=== PATIENT | female | born 1975 | race African-American/Black ===

== ENCOUNTER 2020-02-21 09:07 | Outpatient (REF) | payer OTHER, SELFPAY | END 2020-02-21 09:08 | disposition home or self-care (01) | LOC: HO.LAB 09:07 | PROVIDERS: Visit Provider Internal Medicine | DX: Z20.828 Contact with and (suspected) exposure to other viral communicable diseases (principal) | CPT/HCPCS: 87635 ==

== ENCOUNTER 2020-02-26 09:24 | Outpatient (REF) | payer OTHER, SELFPAY ==
[2020-02-26 11:02] LABS: MANUAL DIFF FLAG NO
[2020-02-26 11:13] LABS: Glucose Urine UA NEG (NEG); Leukocyte Esterase Urine NEG (NEG); Nitrite Urine NEG (NEG); Specific Gravity - Urine 1.025 (1.005-1.025); Urine Blood NEG (NEG); Urine Ketones NEG (NEG); Urine Protein NEG (NEG-TRACE)
[2020-02-26 11:14] LABS: Appearance Urine CLEAR; Color Urine YELLOW
[2020-02-26 11:19] LABS: Basophils Absolute Auto 0.1 X10*3/uL (0.0-0.2); Basophils Percent Auto 0.6 % (0-2); Eosinophils Absolute Auto 0.1 X10*3/uL (0.0-0.4); Eosinophils Percent Auto 1.1 % (0-4); Hemoglobin 10.6 g/dl (12.0-16.0); Imm Gran Abs Auto 0.03 X10*3/uL (0.00-0.03); Imm Gran Pct Auto 0.4 % (0.0-0.4); Lymphocytes Absolute Auto 2.1 X10*3/uL (1.2-4.9); Lymphocytes Percent Auto 26.7 % (20-40); Mean Corpuscular HGB Conc 29.4 g/dl (31.0-35.0); Mean Corpuscular Hemoglobin 20.7 pg (27.0-33.0); Mean Corpuscular Volume 70.2 fL (80-98); Monocytes Absolute Auto 0.6 X10*3/uL (0.1-1.2); Neutrophils Absolute Auto 5.2 X10*3/uL (2.0-8.3); Neutrophils Percent Auto 64.2 % (45-73); Platelet Count 355 X10*3/uL (160-400); Red Blood Count 5.13 X10*6/uL (4.20-5.50); Red Cell Distribution Width 19.8 % (11.0-16.0)
[2020-02-26 11:34] LABS: Mucus Urine 2+ /LPF; RBC Urine 0 /HPF (0); Squamous Epithelial Cell Urine 2+ /LPF; WBC Urine 0 /HPF (0-4)
[2020-02-26 11:54] LABS: Alanine Aminotransferase 10 U/L (0-31); Albumin Level 4.2 g/dL (3.5-5.0); Alkaline Phosphatase 67 U/L (39-117); Anion Gap 13 (12-20); Aspartate Amino Transferase 11 U/L (5-31); Bilirubin Total 0.3 mg/dL (0.0-1.0); Blood Urea Nitrogen 7 mg/dL (9-16); Calcium 8.7 mg/dL (8.4-10.2); Carbon Dioxide 24 mmol/L (22-29); Chloride 108 mmol/L (96-108); Cholesterol 198 mg/dL; Estimated Glomerular Filt Rate > 60; Glucose Fasting 88 mg/dL (60-99); HDL Cholesterol 50 mg/dL; Iron 18 mcg/dL (30-160); LDL Cholesterol Calculated 132 mg/dl; Percent Iron Saturation 4 % (15-50); Potassium 4.1 mmol/l (3.3-5.1); Sodium 141 mmol/L (135-145); Total Iron Binding Capacity 454 mcg/dL (228-428); Total Protein 6.5 g/dL (6.5-8.0); Triglycerides 80 mg/dL; Unsaturated Iron Binding 436 ug/dL
[2020-02-26 11:59] LABS: Thyroid Stimulating Hormone 1.16 mIU/mL (0.32-4.0)
== END 2020-02-26 09:25 | disposition home or self-care (01) ==
LOC: HO.HMGCLDS 09:24
PROVIDERS: PCP Internal Medicine; Visit Provider Internal Medicine
DX: E61.1 Iron deficiency (principal); G89.29 Other chronic pain; R10.9 Unspecified abdominal pain; Z00.00 Encounter for general adult medical examination without abnormal findings
CPT/HCPCS: 36415; 80053; 80061; 81001; 83540; 84443; 85025

== ENCOUNTER 2020-03-11 09:13 | Outpatient (REF) | payer OTHER, SELFPAY ==
--- NOTE | 2020-03-11 09:18 | US_ITS ---
EXAMINATION: US ABDOMEN COMPLETE CLINICAL INFORMATION: Chronic right upper quadrant pain. COMPARISON: None TECHNIQUE: Real-time imaging of the abdominal viscera. FINDINGS: PANCREAS: Normal. ABDOMINAL AORTA: The proximal, mid, and distal segments are normal in caliber. INFERIOR VENA CAVA: Visualized portions are normal. LIVER: Liver echotexture is normal. The liver is normal in size and contour.. No focal hepatic lesion. There is no intrahepatic biliary duct dilatation seen. GALLBLADDER: Normal. The gallbladder is physiologically distended without evidence of stones, sludge, polyps, wall thickening or pericholecystic fluid. COMMON BILE DUCT: Normal in caliber measuring 0.2 cm in diameter. RIGHT KIDNEY: Normal. No hydronephrosis. No renal calculi or focal parenchymal lesions. The kidney measures 13 cm in maximum dimension. LEFT KIDNEY: Normal. No hydronephrosis. No renal calculi or focal parenchymal lesions. The kidney measures 12.5 cm in maximum dimension. SPLEEN: Normal. The spleen measures 12.9 cm in maximum dimension. FREE FLUID: None. US/US abdomen complete IMPRESSION: Unremarkable exam.
== END 2020-03-11 09:14 | disposition home or self-care (01) ==
LOC: HO.HMGCX 09:13
PROVIDERS: PCP Internal Medicine; Visit Provider Internal Medicine
DX: Z00.00 Encounter for general adult medical examination without abnormal findings (principal); R10.9 Unspecified abdominal pain; G89.29 Other chronic pain; A04.8 Other specified bacterial intestinal infections; E61.1 Iron deficiency
CPT/HCPCS: 76700; 87338

== ENCOUNTER → 2020-03-20 09:16 | Outpatient (BNVA) | payer OTHER, SELFPAY | PROVIDERS: PCP Internal Medicine; Referring Provider Internal Medicine; Visit Provider Nurse Practitioner | DX: K21.9 Gastro-esophageal reflux disease without esophagitis (principal); K59.01 Slow transit constipation; R10.9 Unspecified abdominal pain; R14.0 Abdominal distension (gaseous); E66.01 Morbid (severe) obesity due to excess calories | CPT/HCPCS: 99202 ==

== ENCOUNTER 2020-04-03 09:13 | Outpatient (REF) | payer OTHER, SELFPAY | END 2020-04-03 09:14 | disposition home or self-care (01) | LOC: HO.XRAY 09:13 | PROVIDERS: PCP Internal Medicine; Visit Provider Nurse Practitioner | DX: Z13.89 Encounter for screening for other disorder (principal) ==

== ENCOUNTER 2020-04-03 09:49 | Outpatient (REF) | payer OTHER, SELFPAY | END 2020-04-03 09:50 | disposition home or self-care (01) | LOC: HO.LAB 09:49 | PROVIDERS: Visit Provider Internal Medicine | DX: Z20.828 Contact with and (suspected) exposure to other viral communicable diseases (principal) | CPT/HCPCS: C9803; U0003 ==

== ENCOUNTER → 2020-04-08 11:03 | Outpatient (BNVA) | payer OTHER, SELFPAY | PROVIDERS: PCP Internal Medicine; Referring Provider Internal Medicine; Visit Provider Nurse Practitioner | DX: Z76.89 Persons encountering health services in other specified circumstances (principal) ==

== ENCOUNTER 2020-04-15 08:04 | Outpatient (REF) | payer OTHER, SELFPAY ==
--- NOTE | 2020-04-15 | FL_ITS ---
EXAMINATION: XR GI SERIES AND SMALL BOWEL FOLLOW-THROUGH CLINICAL INFORMATION: Abdominal pain COMPARISON: Ultrasound of 03/11/2020 TECHNIQUE: Air contrast upper GI examination with small bowel follow-through. FINDINGS: There is normal elevation of the soft palate while saying candy. There is normal apposition of the vocal cords while saying E. Patient swallowed thin and thick barium without difficulty. No nasopharyngeal reflux or tracheal aspiration identified. There is normal esophageal motility. No hiatal hernia. No gastroesophageal reflux. No esophageal mucosal abnormality. The stomach demonstrates normal distensibility without evidence of ulceration or abnormal mass. There was no delay in gastric emptying. The duodenal bulb and sweep appear unremarkable. Small bowel evaluation demonstrated normal mucosal detail. No tethering identified. The terminal ileum appears unremarkable. The appendix filled and appears unremarkable. FLUOROSCOPY TIME: 1.1 minutes DOSE AREA PRODUCT: 7.201 uGy-m2 (Tan-cm squared) FL/FL small bowel follow through IMPRESSION: Normal upper GI examination and small bowel follow-through.
--- NOTE | 2020-04-15 08:11 | FL_ITS ---
EXAMINATION: XR GI SERIES AND SMALL BOWEL FOLLOW-THROUGH CLINICAL INFORMATION: Abdominal pain COMPARISON: Ultrasound of 03/11/2020 TECHNIQUE: Air contrast upper GI examination with small bowel follow-through. FINDINGS: There is normal elevation of the soft palate while saying candy. There is normal apposition of the vocal cords while saying E. Patient swallowed thin and thick barium without difficulty. No nasopharyngeal reflux or tracheal aspiration identified. There is normal esophageal motility. No hiatal hernia. No gastroesophageal reflux. No esophageal mucosal abnormality. The stomach demonstrates normal distensibility without evidence of ulceration or abnormal mass. There was no delay in gastric emptying. The duodenal bulb and sweep appear unremarkable. Small bowel evaluation demonstrated normal mucosal detail. No tethering identified. The terminal ileum appears unremarkable. The appendix filled and appears unremarkable. FLUOROSCOPY TIME: 1.1 minutes DOSE AREA PRODUCT: 7.201 uGy-m2 (Tan-cm squared) FL/FL upper GI series IMPRESSION: Normal upper GI examination and small bowel follow-through.
== END 2020-04-15 08:05 | disposition home or self-care (01) ==
LOC: HO.XRAY 08:04
PROVIDERS: PCP Internal Medicine; Visit Provider Nurse Practitioner
DX: G89.29 Other chronic pain (principal); R10.9 Unspecified abdominal pain
CPT/HCPCS: 74240; 74250

== ENCOUNTER → 2020-05-21 11:51 | Outpatient (BNVA) | payer OTHER, SELFPAY | PROVIDERS: PCP Internal Medicine; Visit Provider Nurse Practitioner ==

== ENCOUNTER 2020-07-11 09:27 | Outpatient (REF) | payer OTHER, SELFPAY ==
--- NOTE | ~2020-07-11 | CT_ITS ---
EXAMINATION: CT ABDOMEN AND PELVIS WITH CONTRAST CLINICAL INFORMATION: Left lower quadrant pain COMPARISON: Abdominal ultrasound 03/11/2020 TECHNIQUE: Multidetector volumetric images were obtained from the superior aspect of the liver through the pubic symphysis following administration 85 mL of Omnipaque 350 intravenous contrast. Sagittal and coronal reformatted images were obtained on the technologist's workstation. Oral contrast: Yes This CT examination was performed using dose optimization techniques as appropriate, variously including the following: *Automated exposure control *Adjustment of mA and/or kV according to patient size (this includes techniques or standardized protocols for targeted exams where dose is matched to indication/reason for exam; i.e. extremities or head) *Use of iterative reconstruction technique DLP: 714 mGy-cm FINDINGS: LUNG BASES: Minimal bibasilar linear atelectasis. There is an eventration of the right hemidiaphragm. LIVER, GALLBLADDER, AND BILIARY TREE: The liver is mildly enlarged, approximately 21.2 cm in the coronal plane. Parenchymal attenuation is unremarkable. No focal hepatic lesions are identified. There is no intra or extrahepatic duct dilation. There is a small fold at the midportion of the gallbladder which is otherwise unremarkable. PANCREAS: Unremarkable. SPLEEN: Upper limits of normal for size, otherwise unremarkable. ADRENAL GLANDS: Unremarkable. KIDNEYS AND URETERS: The kidneys are normal in size, shape, and attenuation. No hydronephrosis, hydroureter, or calculi seen. No perinephric stranding. BLADDER: Decompressed, overall unremarkable in contour. GASTROINTESTINAL TRACT: The distal esophagus and stomach are unremarkable. The small and large bowel are normal in caliber. The colon, particularly the cecum and ascending colon are quite redundant. There is a normal appendix. There are no bowel wall inflammatory changes. ABDOMINAL WALL: No significant hernia is appreciated. LYMPH NODES: Normal. VASCULAR: Unremarkable. PELVIC VISCERA: The uterus is anteverted and anteflexed. There is a low-attenuation 1 cm structure within the anterior aspect of the fundic myometrium, likely representing a fibroid. There is a 2 x 1.5 cm cm low-attenuation structure in the left adnexa which may represent a dominant follicle or cyst. There is a 1.2 cm low-attenuation structure within the right adnexa as well with a thin rim of enhancement. This could represent a follicle, cyst or corpus luteum. OSSEOUS STRUCTURES: Unremarkable. CT/CT abdomen pelvis w con IMPRESSION: Low attenuation structures within the adnexa bilaterally measuring 2 x 1.5 cm on the left and 1.2 cm on the right. The structure on the right is a thin rim enhancement. This could represent cyst or dominant follicles. On the right, given the thin rim of enhancement, corpus luteum could be a consideration as well. Further evaluation could be obtained with pelvic ultrasound. Mild hepatomegaly.
[2020-07-11] MEDS: Barium Sulfate Oral (Vanilla) 450 ML ORAL.SUSP 900 ML PO (10:51)
== END 2020-07-11 09:28 | disposition home or self-care (01) ==
LOC: HO.CT 09:27
PROVIDERS: Visit Provider Nurse Practitioner
DX: R10.32 Left lower quadrant pain (principal)
CPT/HCPCS: 74177; Q9967

== ENCOUNTER → 2020-07-25 08:44 | Outpatient (BNVA) | payer OTHER, SELFPAY | PROVIDERS: PCP Internal Medicine; Visit Provider Nurse Practitioner | DX: R10.32 Left lower quadrant pain (principal); R10.9 Unspecified abdominal pain; R14.0 Abdominal distension (gaseous); G89.29 Other chronic pain; K59.04 Chronic idiopathic constipation; K21.9 Gastro-esophageal reflux disease without esophagitis | CPT/HCPCS: 99212 ==

== ENCOUNTER 2020-08-29 14:25 | Outpatient (REF) | payer OTHER, SELFPAY ==
[2020-08-29 17:06] LABS: MANUAL DIFF FLAG NO
[2020-08-29 17:08] LABS: Basophils Percent Auto 0.4 % (0-2); Eosinophils Absolute Auto 0.1 X10*3/uL (0.0-0.4); Eosinophils Percent Auto 1.5 % (0-4); Hematocrit 34.5 % (37-47); Hemoglobin 10.4 g/dl (12.0-16.0); Imm Gran Abs Auto 0.06 X10*3/uL (0.00-0.03); Imm Gran Pct Auto 0.9 % (0.0-0.4); Lymphocytes Absolute Auto 1.8 X10*3/uL (1.2-4.9); Lymphocytes Percent Auto 26.2 % (20-40); Mean Corpuscular HGB Conc 30.1 g/dl (31.0-35.0); Mean Corpuscular Hemoglobin 21.1 pg (27.0-33.0); Mean Corpuscular Volume 70.1 fL (80-98); Monocytes Absolute Auto 0.5 X10*3/uL (0.1-1.2); Monocytes Percent Auto 8.1 % (2-11); Neutrophils Absolute Auto 4.2 X10*3/uL (2.0-8.3); Neutrophils Percent Auto 62.9 % (45-73); Platelet Count 498 X10*3/uL (160-400); Red Blood Count 4.92 X10*6/uL (4.20-5.50); Red Cell Distribution Width 16.9 % (11.0-16.0); White Blood Count 6.7 X10*3/uL (4.8-10.8)
[2020-08-29 17:34] LABS: Alanine Aminotransferase 13 U/L (0-31); Alkaline Phosphatase 66 U/L (39-117); Anion Gap 14 (12-20); Aspartate Amino Transferase 16 U/L (5-31); Bilirubin Total 0.8 mg/dL (0.0-1.0); Blood Urea Nitrogen 8 mg/dL (9-16); C Reactive Protein 0.24 mg/dL (< or = 0.50); Calcium 8.7 mg/dL (8.4-10.2); Carbon Dioxide 26 mmol/L (22-29); Chloride 107 mmol/L (96-108); Estimated Glomerular Filt Rate > 60; Glucose Random 77 mg/dL (60-115); Lipase 12 U/L (8-78); Potassium 4.2 mmol/L (3.3-5.1); Sodium 143 mmol/L (135-145); Total Protein 6.5 g/dL (6.5-8.0)
[2020-08-29 17:53] LABS: Erythrocyte Sedimentation Rate 14 MM/HR (0-20)
[2020-08-29 17:55] LABS: Ferritin 13 ng/mL (10-250)
[2020-09-03 16:36] LABS: Gastrin 16 pg/mL (<=100)
== END 2020-08-29 14:26 | disposition home or self-care (01) ==
LOC: HO.LAB 14:25
PROVIDERS: Absent Provider Internal Medicine; PCP Internal Medicine; Visit Provider Internal Medicine Gastroenterology
DX: R10.9 Unspecified abdominal pain (principal); R14.0 Abdominal distension (gaseous); K21.9 Gastro-esophageal reflux disease without esophagitis; K59.04 Chronic idiopathic constipation; D50.9 Iron deficiency anemia, unspecified; G89.29 Other chronic pain; E66.1 Drug-induced obesity
CPT/HCPCS: 36415; 80053; 82728; 82941; 83690; 85025; 85652; 86140; 99212

== ENCOUNTER 2020-09-19 10:39 | Day surgery (SDC) | payer OTHER, SELFPAY ==
--- NOTE | 2020-09-17 13:24 | HO.ANESPROP2 ---
Documented by User: Jenelle Flowers 09/17/20 13:25 HPI - Anesthesia Eval Consult details Narrative: 45yo F for Upper Endoscopy and Colonoscopy PMFSH Active Problems Active Problems: All Active Problems (Updated 08/29/20 @ 18:52 by Bubba Casanova MD) Iron deficiency anemia (Acute) Disc degeneration, lumbar (Acute) LLQ abdominal pain (Acute) Abdominal bloating (Acute) Abdominal cramping (Acute) Chronic idiopathic constipation (Acute) GERD (gastroesophageal reflux disease) (Acute) Morbid obesity (Acute) Iron deficiency (Acute) H. pylori infection (Acute) Chronic abdominal pain (Acute) Annual physical exam (Acute) Normal Pap smear (Acute) Past Medical History Medical History Annual physical exam Chronic abdominal pain Chronic constipation Disc degeneration, lumbar DJD (degenerative joint disease), lumbar H. pylori infection Hemorrhoids Iron deficiency Normal Pap smear Uterine fibroid Family History Family History Father No problems noted. 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 Allergies Allergy/AdvReac Type Severity Reaction Status Date / Time No Known Allergies Allergy Verified 08/29/20 14:29 Home Medications Medication Instructions Recorded Confirmed Last Taken Type ascorbic acid (vitamin C) 500 mg 500 mg PO DAILY 02/26/20 08/29/20 Unknown History capsule,extended release cholecalciferol (vitamin D3) 50 50 mcg PO DAILY 02/26/20 08/29/20 Unknown History mcg (2,000 unit) capsule Exam Exam Date and Time: September 17, 2020 1324 Pertinent Lab Results Pertinent Lab Results: Laboratory Tests 08/29/20 08/29/20 16:05 16:05 WBC 6.7 Hgb 10.4 L Hct 34.5 L Plt Count 498 H D Sodium 143 Potassium 4.2 Chloride 107 Carbon Dioxide 26 BUN 8 L Creatinine 0.70 Assessment and Plan Assessment Anesthesia Assessment: Chart Reviewed Documented by User: Son Chen 09/19/20 10:50 PMFSH Past Medical History Medical History Annual physical exam Chronic abdominal pain Chronic constipation Disc degeneration, lumbar DJD (degenerative joint disease), lumbar H. pylori infection Hemorrhoids Iron deficiency Normal Pap smear Uterine fibroid Family History Family History Father No problems noted. 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
--- NOTE | 2020-09-19 10:41 | P.BOP_ITS ---
Brief Operative Note Date of Service: 09/19/20 Pre-op diagnosis: Intermittent episodes of abdominal pain, iron deficiency anemia Post-op diagnosis: other (Gastritis, diverticulosis, hemorrhoids) Procedure: FLEXIBLE TRANSORAL UPPER GASTROINTESTINAL ENDOSCOPY WITH BIOPSIES AND COLONOSCOPY TILL CECUM WITH BIOPSIES UPPER ENDOSCOPY Consent: Indications for the procedure and potential complications of bleeding, perforation, reaction to medications and missed diagnosis were discussed with the patient and informed consent was obtained. Instrument: Olympus GIF H 190 mid size upper endoscope Monitoring: Vital signs and clinical assessment, continuous EKG monitoring, Pulse oximetry, Carbon Dioxide monitoring and blood pressure monitoring were done throughout the procedure. Procedure: The patient was placed in the left lateral decubitis position and pre-procedure medications were administered and a bite block was placed. The endoscope was inserted into the mouth and advanced under direct vision to the third part of duodenum. A careful inspection was made as the upper endoscope was withdrawn including a retroflexed examination of the proximal stomach; Findings and interventions are described below. Findings: Larynx: Normal Esophagus: GE junction at 36 cms. No esophagitis or Chilel's. Stomach: Mild gastric erythema with a single antral erosion - biopsied. Biopsies were obtained from the antrum and body of the stomach. Grade 2 flap valve on ret roflexed examination of the cardia. Duodenum: Normal bulb and descending duodenum. Biopsies were obtained from 3rd part of the duodenum to check for celiac sprue. Intervention: Biopsies as noted above COLONOSCOPY PROCEDURE NOTE Consent: Indications for the procedure and potential complications of bleeding, perforation, reaction to medications and missed diagnosis were discussed with the patient and informed consent was obtained. Instrument: Olympus PCF H 190 L variable stiffness pediatric colonoscope Monitoring: Vital signs and clinical assessment, intermittent blood pressure monitoring, continuous EKG monitoring, Pulse oximetry and Carbon Dioxide monitoring were done throughout the procedure. Colon withdrawl time was 20 minutes. Procedure: The patient was placed in the left lateral decubitis position and pre-procedure medications were administered. After a digital rectal examination of the ano-rectum, the video colonoscope was inserted into the rectum and advanced through the colon to the cecum. The colonoscope was slowly withdrawn in a retrograde panoramic fashion and the colon mucosa was carefully examined including a retroflexed view of the rectum. Findings and interventions are described below. Procedure Difficulty: : Without difficulty Findings: Terminal Ileum: Multiple attempts to intubate the TI were unsuccessful Cecum: Normal Ascending Colon: Normal Transverse Colon: Normal Descending Colon: Normal Sigmoid Colon: Moderate diverticulosis Rectum: Normal Ano-rectum: Small internal hemorrhoids Colon preparation: Good Impression and Post Procedure Diagnosis: Endoscopy Findings: STOMACH: Mild gastric erythema with a single antral erosion - biopsied. DUODENUM: Colonoscopy Findings: No polyps were detected. Random biopsies obtained from right and colon. Biopsies obtained from the rectum to rule out amyloidosis Moderate diverticulosis seen in the sigmoid colon Small hemorrhoids on retroflexed exam. Plan: Await pathology results Patient has an appointment on 10/31/20 in the GI Clinic with Bubba Casanova M.D.. Repeat Colonoscopy interval based on path results - in 10 years if biopsies are normal. Above findings were reviewed with the patient and diverticulosis handout was given in the discharge area Surgeon: Bubba Casanova MD Anesthesia: MAC (Dr Chen & Carla Bradley CRNA) Was an Captain Waiter/Waitress used for this Procedure?: Yes Captain Waiter/Waitress: Elbert Damico Estimated blood loss (mL): 0 Pathology: other (A- SMALL BOWEL BXS R/O CELIAC B- GASTRIC ANTRUM BXS R/O H.PYLORI C- GASTRIC EROSION BXS D- GASTRIC BODY BXS E- RANDOM BXS RIGHT COLON F- RANDOM BXS LEFT COLON ) Condition: stable Disposition: PACU
--- NOTE | 2020-09-19 10:44 | W.PM.OPN ---
Operative Note Operative Note Date of Service: 09/19/20 Narrative: Pre-op diagnosis: Intermittent episodes of abdominal pain, iron deficiency anemia Post-op diagnosis: other (Gastritis, diverticulosis, hemorrhoids) Procedure: FLEXIBLE TRANSORAL UPPER GASTROINTESTINAL ENDOSCOPY WITH BIOPSIES AND COLONOSCOPY TILL CECUM WITH BIOPSIES UPPER ENDOSCOPY Consent: Indications for the procedure and potential complications of bleeding, perforation, reaction to medications and missed diagnosis were discussed with the patient and informed consent was obtained. Instrument: Olympus GIF H 190 mid size upper endoscope Monitoring: Vital signs and clinical assessment, continuous EKG monitoring, Pulse oximetry, Carbon Dioxide monitoring and blood pressure monitoring were done throughout the procedure. Procedure: The patient was placed in the left lateral decubitis position and pre-procedure medications were administered and a bite block was placed. The endoscope was inserted into the mouth and advanced under direct vision to the third part of duodenum. A careful inspection was made as the upper endoscope was withdrawn including a retroflexed examination of the proximal stomach; Findings and interventions are described below. Findings: Larynx: Normal Esophagus: GE junction at 36 cms. No esophagitis or Chilel's. Stomach: Mild gastric erythema with a single antral erosion - biopsied. Biopsies were obtained from the antrum and body of the stomach. Grade 2 flap valve on retroflexed examination of the cardia. Duodenum: Normal bulb and descending duodenum. Biopsies were obtained from 3rd part of the duodenum to check for celiac sprue. Intervention: Biopsies as noted above COLONOSCOPY PROCEDURE NOTE Consent: Indications for the procedure and potential complications of bleeding, perforation, reaction to medications and missed diagnosis were discussed with the patient and informed consent was obtained. Instrument: Olympus PCF H 190 L variable stiffness pediatric colonoscope Monitoring: Vital signs and clinical assessment, intermittent blood pressure monitoring, continuous EKG monitoring, Pulse oximetry and Carbon Dioxide monitoring were done throughout the procedure. Colon withdrawl time was 20 minutes. Procedure: The patient was placed in the left lateral decubitis position and pre-procedure medications were administered. After a digital rectal examination of the ano-rectum, the video colonoscope was inserted into the rectum and advanced through the colon to the cecum. The colonoscope was slowly withdrawn in a retrograde panoramic fashion and the colon mucosa was carefully examined including a retroflexed view of the rectum. Findings and interventions are described below. Procedure Difficulty: : Without difficulty Findings: Terminal Ileum: Multiple attempts to intubate the TI were unsuccessful Cecum: Normal Ascending Colon: Normal Transverse Colon: Normal Descending Colon: Normal Sigmoid Colon: Moderate diverticulosis Rectum: Normal Ano-rectum: Small internal hemorrhoids Colon preparation: Good Impression and Post Procedure Diagnosis: Endoscopy Findings: STOMACH: Mild gastric erythema with a single antral erosion - biopsied. DUODENUM: Normal - biopsied to check for celiac sprue Colonoscopy Findings: No polyps were detected. Random biopsies obtained from right and colon. Biopsies obtained from the rectum to rule out amyloidosis Moderate diverticulosis seen in the sigmoid colon Small hemorrhoids on retroflexed exam. Plan: Await pathology results Patient has an appointment on 10/31/20 in the GI Clinic with Bubba Casanova M.D.. Repeat Colonoscopy interval based on path results - in 10 years if biopsies are normal. Above findings were reviewed with the patient and diverticulosis handout was given in the discharge area Surgeon: Bubba Casanova MD Anesthesia: MAC (Dr Chen & Carla Bradley CRNA) Was an Corrosion Prevention Metal Sprayer used for this Procedure?: Yes Corrosion Prevention Metal Sprayer: Elbert Damico Estimated blood loss (mL): 0 Pathology: other (A- SMALL BOWEL BXS R/O CELIAC B- GASTRIC ANTRUM BXS R/O H.PYLORI C- GASTRIC EROSION BXS D- GASTRIC BODY BXS E- RANDOM BXS RIGHT COLON F- RANDOM BXS LEFT COLON ) Condition: stable Disposition: PACU
--- NOTE | 2020-09-19 10:44 | MHC.SHP ---
Pre-Procedural Eval Section A The patient is an INPATIENT: No Changes since office visit: Yes Patient answered all questions; No Cold of Flu in the past 2 weeks, No New Medical Problems and No Changes in Medication The History & Physical has been completed within 30 days and I have reviewed it.: Yes Section B Chief Complaint: constipation,abdominal distension Allergies: Allergies Allergy/AdvReac Type Severity Reaction Status Date / Time No Known Allergies Allergy Verified 08/29/20 14:29 Exam Surgical H&P Exam: Normal: HEENT, Normal: Heart, Normal: Lungs, Normal: Extremities and Normal: Abdomen Plan Diagnosis/Plan: Unchanged I have reviewed the history and physical and performed a pertinent physical examination on my patient. No changes have occurred unless specified.
[2020-09-19 10:55] LABS: UPreg QC Valid YES
[2020-09-19 10:57] LABS: Urine Pregnancy NEGATIVE (NEGATIVE)
[2020-09-19 10:58] VITALS: BP 131/86; PULSE 83; RESP 18; TEMP 36.3; O2SAT 97; BMI 39.5
[2020-09-19] MEDS: Lactated Ringers 1,000 ML 100 ML IVCONT (11:19)
[2020-09-19 12:32] VITALS: BP 107/71; PULSE 83; RESP 16; TEMP 36.2; O2SAT 99
[2020-09-19 12:47] VITALS: BP 109/71; PULSE 69; RESP 20; TEMP 36.2; O2SAT 98
== END 2020-09-19 13:20 ==
LOC: HO.SSS 10:40
PROVIDERS: Nurse Practitioner; PCP Internal Medicine; Visit Provider Internal Medicine Gastroenterology
PROC: (CPT 45380; principal; 2020-09-19 11:30)
DX: K59.04 Chronic idiopathic constipation (principal); K63.89 Other specified diseases of intestine; K57.30 Diverticulosis of large intestine without perforation or abscess without bleeding; K64.8 Other hemorrhoids; K25.9 Gastric ulcer, unspecified as acute or chronic, without hemorrhage or perforation; K29.50 Unspecified chronic gastritis without bleeding; G89.29 Other chronic pain; K21.9 Gastro-esophageal reflux disease without esophagitis; D50.9 Iron deficiency anemia, unspecified; Z86.19 Personal history of other infectious and parasitic diseases; Z87.891 Personal history of nicotine dependence; Z79.899 Other long term (current) drug therapy
CPT/HCPCS: 45380; 43239; 81025; 88305; 88312; 88342; J3010

== ENCOUNTER → 2020-10-31 09:12 | Outpatient (BNVA) | payer OTHER, SELFPAY | PROVIDERS: PCP Internal Medicine; Visit Provider Internal Medicine Gastroenterology ==

== ENCOUNTER → 2021-01-30 09:28 | Outpatient (BNVA) | payer OTHER, SELFPAY | PROVIDERS: Visit Provider Internal Medicine Gastroenterology ==

== ENCOUNTER 2021-02-26 10:38 | Outpatient (REF) | payer OTHER, SELFPAY ==
[2021-02-26 12:34] LABS: Hematocrit 37.7 % (37.0-47.0); Hemoglobin 11.5 g/dl (12.0-16.0); Mean Corpuscular HGB Conc 30.5 g/dl (31.0-35.0); Mean Corpuscular Hemoglobin 22.2 pg (27.0-33.0); Mean Corpuscular Volume 72.6 fL (80.0-98.0); Mean Platelet Volume 10.3 fL (9.4-12.3); Platelet Count 402 X10*3/uL (160-400); Red Blood Count 5.19 X10*6/uL (4.20-5.50); Red Cell Distribution Width 19.6 % (11.0-16.0); White Blood Count 7.8 X10*3/uL (4.8-10.8)
[2021-02-26 13:01] LABS: Creatinine Urine 183.74 mg/dL
[2021-02-26 13:02] LABS: Alanine Aminotransferase 14 U/L (0-31); Albumin Level 4.4 g/dL (3.5-5.0); Alkaline Phosphatase 81 U/L (39-117); Anion Gap 11 (12-20); Aspartate Amino Transferase 15 U/L (5-31); Bilirubin Total 0.6 mg/dL (0.0-1.0); Blood Urea Nitrogen 8 mg/dL (9-16); Calcium 9.2 mg/dL (8.4-10.2); Carbon Dioxide 25 mmol/L (22-29); Chloride 107 mmol/L (96-108); Cholesterol 246 mg/dL; Estimated Glomerular Filt Rate > 60; Glucose Fasting 81 mg/dL (60-99); HDL Cholesterol 47 mg/dL; Iron 42 mcg/dL (30-160); LDL Cholesterol Calculated 166 mg/dl; Percent Iron Saturation 8 % (15-50); Potassium 4.4 mmol/L (3.3-5.1); Sodium 139 mmol/L (135-145); Total Iron Binding Capacity 516 mcg/dL (228-428); Triglycerides 168 mg/dL; Unsaturated Iron Binding 474 ug/dL
[2021-02-26 13:13] LABS: Ferritin 11 ng/mL (10-250)
[2021-02-26 13:24] LABS: TSH reflex Free T4 0.62 uIU/mL (0.32-4.0)
[2021-02-27 17:37] LABS: Homocysteine 12.7 umol/L (<10.4)
[2021-03-03 21:32] LABS: Porphobilinogen, Random Urine 0.076 mg/g creat (<0.22)
[2021-03-05 19:16] LABS: C1Q Complement Component 7.9 mg/dL (5.0-8.6)
== END 2021-02-26 10:39 | disposition home or self-care (01) ==
LOC: HO.HMGCLDS 10:38
PROVIDERS: Internal Medicine Gastroenterology; Visit Provider Internal Medicine
DX: Z00.00 Encounter for general adult medical examination without abnormal findings (principal); G89.29 Other chronic pain; R10.9 Unspecified abdominal pain; E61.1 Iron deficiency
CPT/HCPCS: 36415; 80053; 80061; 82728; 83090; 83540; 84106; 84443; 85027; 86160

== ENCOUNTER → 2021-06-12 14:01 | Outpatient (BNVA) | payer OTHER, SELFPAY | PROVIDERS: PCP Internal Medicine; Referring Provider Internal Medicine; Visit Provider Internal Medicine Gastroenterology | DX: K21.9 Gastro-esophageal reflux disease without esophagitis (principal); K59.04 Chronic idiopathic constipation; R10.9 Unspecified abdominal pain; R14.0 Abdominal distension (gaseous); R10.32 Left lower quadrant pain; D50.9 Iron deficiency anemia, unspecified; G89.29 Other chronic pain; A04.8 Other specified bacterial intestinal infections | CPT/HCPCS: 99212 ==

== ENCOUNTER → 2021-07-24 09:37 | Outpatient (BNVA) | payer OTHER, SELFPAY | PROVIDERS: PCP Internal Medicine; Visit Provider Internal Medicine Gastroenterology | DX: K59.04 Chronic idiopathic constipation (principal); K21.9 Gastro-esophageal reflux disease without esophagitis; R14.0 Abdominal distension (gaseous); E66.01 Morbid (severe) obesity due to excess calories; E61.1 Iron deficiency; A04.8 Other specified bacterial intestinal infections; R10.9 Unspecified abdominal pain; G89.29 Other chronic pain; Z68.41 Body mass index [BMI] 40.0-44.9, adult | CPT/HCPCS: 99212 ==

== ENCOUNTER → 2021-08-04 11:24 | Outpatient (BNVA) | payer OTHER, SELFPAY | PROVIDERS: PCP Internal Medicine; Visit Provider Dietitian, Registered | DX: E66.01 Morbid (severe) obesity due to excess calories (principal) | CPT/HCPCS: 97802 ==

== ENCOUNTER 2022-01-02 11:36 | Outpatient (REF) | payer OTHER, SELFPAY ==
[2022-01-02 13:16] LABS: Estimated Average Glucose 105 mg/dL; Hemoglobin A1c % 5.3 %
[2022-01-02 13:21] LABS: TSH reflex Free T4 0.98 uIU/mL (0.32-4.0)
[2022-01-09 14:41] LABS: Transglutaminase Ab IgG <1.0 U/mL; Transglutaminase IgA <1.0 U/mL
== END 2022-01-02 11:37 | disposition home or self-care (01) ==
LOC: HO.LAB 11:36
PROVIDERS: Visit Provider Nurse Practitioner Family
DX: Z12.11 Encounter for screening for malignant neoplasm of colon (principal); R10.9 Unspecified abdominal pain; E11.9 Type 2 diabetes mellitus without complications
CPT/HCPCS: 36415; 83036; 84443; 86364; 99212

== ENCOUNTER → 2022-04-23 10:30 | Outpatient (BNVA) | payer OTHER, SELFPAY | PROVIDERS: PCP Internal Medicine; Referring Provider Internal Medicine; Visit Provider Internal Medicine Gastroenterology | DX: Z13.89 Encounter for screening for other disorder (principal) | CPT/HCPCS: 99212 ==

== ENCOUNTER 2022-04-24 10:46 | Outpatient (REF) | payer OTHER, SELFPAY ==
[2022-04-24 13:45] LABS: MANUAL DIFF FLAG NO
[2022-04-24 13:48] LABS: Basophils Percent Auto 0.4 % (0-2); Eosinophils Absolute Auto 0.2 X10*3/uL (0.0-0.4); Eosinophils Percent Auto 2.7 % (0-4); Hematocrit 34.9 % (37.0-47.0); Hemoglobin 10.6 g/dl (12.0-16.0); Imm Gran Abs Auto 0.03 X10*3/uL (0.00-0.03); Imm Gran Pct Auto 0.4 % (0.0-0.4); Lymphocytes Absolute Auto 1.8 X10*3/uL (1.2-4.9); Lymphocytes Percent Auto 22.2 % (20-40); Mean Corpuscular HGB Conc 30.4 g/dl (31.0-35.0); Mean Corpuscular Hemoglobin 21.5 pg (27.0-33.0); Mean Corpuscular Volume 70.6 fL (80.0-98.0); Mean Platelet Volume 10.3 fL (9.4-12.3); Monocytes Absolute Auto 0.5 X10*3/uL (0.1-1.2); Monocytes Percent Auto 6.6 % (2-11); Neutrophils Absolute Auto 5.3 x10*3/uL (2.0-8.3); Neutrophils Percent Auto 67.7 % (45-73); Platelet Count 360 X10*3/uL (160-400); Red Blood Count 4.94 X10*6/uL (4.20-5.50); Red Cell Distribution Width 17.3 % (11.0-16.0); White Blood Count 7.9 X10*3/uL (4.8-10.8)
[2022-04-24 14:20] LABS: Alanine Aminotransferase 16 U/L (0-31); Albumin Level 3.9 g/dL (3.5-5.0); Alkaline Phosphatase 86 U/L (39-117); Anion Gap 11 (12-20); Aspartate Amino Transferase 12 U/L (5-31); Bilirubin Total 0.3 mg/dL (0.0-1.0); Blood Urea Nitrogen 8 mg/dL (9-16); C Reactive Protein 0.68 mg/dL (< or = 0.50); Calcium 8.7 mg/dL (8.4-10.2); Carbon Dioxide 24 mmol/L (22-29); Chloride 109 mmol/L (96-108); Cholesterol 191 mg/dL; Estimated Glomerular Filt Rate > 60; Glucose Fasting 100 mg/dL (60-99); Glucose Random 100 mg/dL (60-115); HDL Cholesterol 37 mg/dL; Iron 23 mcg/dL (30-160); LDL Cholesterol Calculated 122 mg/dl; Percent Iron Saturation 7 % (15-50); Potassium 4.2 mmol/L (3.3-5.1); Sodium 140 mmol/L (135-145); Total Iron Binding Capacity 346 mcg/dL (228-428); Total Protein 6.3 g/dL (6.5-8.0); Triglycerides 160 mg/dL; Unsaturated Iron Binding 323 ug/dL
[2022-04-24 14:38] LABS: Ferritin 10 ng/mL (10-250)
[2022-04-24 14:40] LABS: TSH reflex Free T4 0.88 uIU/mL (0.32-4.0)
[2022-04-24 14:49] LABS: Folate 4.8 ng/mL (> or = 4.0); Vitamin B12 321 pg/mL (200-900)
[2022-04-29 14:18] LABS: Vitamin B6 <2.0 ng/mL (2.1-21.7)
[2022-05-01 14:14] LABS: Pancreatic Elastase-1 >500 mcg/g
[2022-05-01 21:28] LABS: Calprotectin, Fecal 86 mcg/g
== END 2022-04-24 10:47 | disposition home or self-care (01) ==
LOC: HO.HMGCLDS 10:46
PROVIDERS: Absent Provider Internal Medicine; PCP Internal Medicine; Visit Provider Internal Medicine Gastroenterology
DX: Z00.00 Encounter for general adult medical examination without abnormal findings (principal); K60.2 Anal fissure, unspecified; R10.9 Unspecified abdominal pain; G89.29 Other chronic pain; E66.01 Morbid (severe) obesity due to excess calories; D50.9 Iron deficiency anemia, unspecified
CPT/HCPCS: 36415; 80053; 80061; 82607; 82656; 82728; 82746; 83540; 83993; 84207; 84443; 85025; 86140; 87177; 87209

== ENCOUNTER → 2022-05-20 11:08 | Outpatient (BNVA) | payer OTHER, SELFPAY | PROVIDERS: PCP Internal Medicine; Visit Provider Surgery | DX: L29.0 Pruritus ani (principal) | CPT/HCPCS: 99202 ==

== ENCOUNTER → 2022-06-12 09:02 | Outpatient (BNVA) | payer OTHER, SELFPAY | PROVIDERS: PCP Internal Medicine; Visit Provider Internal Medicine Gastroenterology | DX: K21.9 Gastro-esophageal reflux disease without esophagitis (principal) ==

== ENCOUNTER → 2022-06-22 14:54 | Outpatient (BNVA) | payer OTHER, SELFPAY | PROVIDERS: PCP Internal Medicine; Referring Provider Internal Medicine; Visit Provider Surgery | DX: K60.2 Anal fissure, unspecified (principal); L29.0 Pruritus ani | CPT/HCPCS: 99212 ==

== ENCOUNTER 2022-07-03 11:04 | Outpatient (REF) | payer OTHER, SELFPAY ==
[2022-07-03 14:13] LABS: Hematocrit 32.6 % (37.0-47.0); Hemoglobin 9.8 g/dl (12.0-16.0); Mean Corpuscular HGB Conc 30.1 g/dl (31.0-35.0); Mean Corpuscular Hemoglobin 21.4 pg (27.0-33.0); Mean Corpuscular Volume 71.3 fL (80.0-98.0); Mean Platelet Volume 10.2 fL (9.4-12.3); Platelet Count 375 X10*3/uL (160-400); Red Blood Count 4.57 X10*6/uL (4.20-5.50); Red Cell Distribution Width 18.3 % (11.0-16.0); White Blood Count 7.2 X10*3/uL (4.8-10.8)
[2022-07-03 15:43] LABS: Alanine Aminotransferase 18 U/L (0-31); Albumin Level 3.9 g/dL (3.5-5.0); Alkaline Phosphatase 78 U/L (39-117); Anion Gap 11 (12-20); Aspartate Amino Transferase 15 U/L (5-31); Bilirubin Direct < 0.2 mg/dL (0.0-0.5); Bilirubin Total 0.5 mg/dL (0.0-1.0); Blood Urea Nitrogen 8 mg/dL (9-16); Calcium 8.8 mg/dL (8.4-10.2); Carbon Dioxide 26 mmol/L (22-29); Chloride 108 mmol/L (96-108); Cholesterol 214 mg/dL; Estimated Glomerular Filt Rate > 60; Glucose Random 89 mg/dL (60-115); HDL Cholesterol 37 mg/dL; LDL Cholesterol Calculated 138 mg/dl; Sodium 141 mmol/L (135-145); Triglycerides 197 mg/dL
[2022-07-03 15:46] LABS: Thyroid Stimulating Hormone 0.85 uIU/mL (0.32-4.0); Vitamin B12 395 pg/mL (200-900)
== END 2022-07-03 11:05 | disposition home or self-care (01) ==
LOC: HO.HMGCLDS 11:04
PROVIDERS: Internal Medicine; Internal Medicine Gastroenterology; PCP Internal Medicine; Visit Provider Nurse Practitioner Family
DX: K60.2 Anal fissure, unspecified (principal); K21.9 Gastro-esophageal reflux disease without esophagitis
CPT/HCPCS: 36415; 80048; 80061; 80076; 82607; 82746; 84443; 85027

== ENCOUNTER → 2022-10-12 08:46 | Outpatient (BNVA) | payer OTHER, SELFPAY | PROVIDERS: PCP Internal Medicine; Visit Provider Internal Medicine Gastroenterology ==

== ENCOUNTER 2022-10-22 12:33 | Outpatient (AMB) | payer OTHER, SELFPAY ==
--- NOTE | 2022-10-22 12:34 | A.OFFVIS_ITS ---
Intake Vital Signs 10/22/22 12:36 Height 5 ft 2 in Weight 271 lb 2.697 oz BMI 49.6 BP 131/67 Blood Pressure Location Lt brachial Position Sitting Pulse 61 Intake Visit Reasons: 4 month follow up Intake Note: Adiel presents in the office as a 4 month follow up. CC: She states that she has all the same symptoms. Stomach pains. Codifier Required: No Allergies No Known Allergies Allergy (Verified 01/11/23 14:31) Medication List - Last Reconciled 10/22/22 by Bubba Casanova MD ascorbate calcium (vitamin C) 500 mg PO DAILY clindamycin phosphate 1% topical QAM docusate sodium 100 mg PO BEDTIME ferrous sulfate 325 mg PO DAILY Lactobacillus rhamnosus GG (Culturelle) 1 cap PO DAILY 90 days methylcellulose (laxative) (Citrucel) 500 mg PO DAILY multivitamin with folic acid 400 mcg (Daily-Bisi (with folic acid)) 1 tab PO QAM omeprazole 40 mg PO DAILY 90 days polyethylene glycol 3350 (Miralax) 17 grams PO DAILY 1 day sennosides (Natural Senna Laxative) 17.2 mg (2 x 8.6 mg) PO BEDTIME simethicone (Anti-Gas Ultra Strength) 180 mg PO QID 30 days HPI 4 month follow up HPI Details GI FU visit for this 47-year-old female for FU of chronic abdominal pain and bloating Pt was referred by Silva Daley NP in the past for a 2nd opinion IMAGING STUDIES:? 07/11/[address] SCAN SHOWED: Low attenuation structures within the adnexa bilaterally measuring 2 x 1.5 cm on the left and 1.2 cm on the rig ht. The structure on the right is a thin rim enhancement. This could represent cyst or dominant follicles. On the right, given the thin rim of enhancement, corpus luteum could be a consideration as well. Further evaluation could be obtained with pelvic ultrasound. Mild hepatomegaly. ENDOSCOPIC STUDIES:? 09/2022 CAPSULE ENDOSCOPY SHOWED: Findings: stomach appeared normal. Duodenum entered at 23 mins. Good visualization of small bowel and no masses, ulcers or bleeding points noted. Cecum reached at 3 hr 36 min Conclusion: normal study, no active bleeding seen. 08/2020 EGD? AND COLONOSCOPY SHOWED: Endoscopy Findings: STOMACH: Mild gastric erythema with a single antral erosion - biopsied. Colonoscopy Findings: No polyps were detected. Random biopsies obtained from right and colon.? Biopsies obtained from the rectum to rule out amyloidosis Moderate diverticulosis seen in the sigmoid colon Small hemorrhoids on retroflexed exam. Plan:? Patient has an appointment on 10/31/20 in the GI Clinic with Bubba Casanova M.D.. Repeat Colonoscopy interval based on path results - in 10 years if biopsies are normal. BIOPSIES SHOWED: A.? Small bowel, biopsy:? Duodenal mucosa within normal limits. B.? Stomach, antrum, biopsy:? Antral-type mucosa with moderate chronic inactive inflammation; no Helicobacter organisms seen. C.? Stomach, erosion, biopsy:? Oxyntic mucosa with moderate chronic inactive inflammation and patchy atrophy; no Helicobacter organisms seen. D.? Stomach, body, biopsy:? Oxyntic mucosa with mild chronic inactive inflammation; no atrophy seen; no Helicobacter organisms seen. E.? Colon, random right, biopsy:? Melanosis coli; otherwise colonic mucosa within normal limits. F.? Colon, random left, biopsy:? Colonic mucosa within normal limits. G.? Rectum, biopsy:? Patient cc: abdominal pain/bloating with a lot of gas, GERD with burning sensation. Denies any other GI issues. Feels 50% improvement in heartburn Noted significant improvement in abdominal pain after taking medication to clean out her colon TODAY'S VISIT: Capsule endoscopy results reviewed with the patient Having stomach pain and a lot of gas. Has a BM twice a day - stools can be hard intermittently Anal itching resolved and does not need to use topical cream any more Menstrual bleeding is not too bad at present Everytime I have a BM, my stomach hurts Has intermittent fecal incontinence - twice a week with leakage of loose stools when she passes gas No longer has a fissure any more. Trying to eat less and having less frequent BM. Perianal area is still irritated and not as painful. PAST VISIT: Getting depressed due to GI issues Rectal pain and diagnosed with anal fissure (by Dr Kate at [facility]) and was prescribed topical cream which was compounded (? NTG) - still using it twice daily and fissure has not healed. Notes blood on the tissue when she wipes. Feels she is unable to empty herself completely. Noted diarrhea when she was taking the Linzess and Linzess was stopped by [place]. [place] good when she was taking Linzess - was having several BMs a day. Notes rectal itching when she uses the bathroom - diagnosed with eczema involving the rectum. Noted significant improvement in abdominal pain after taking medication to clean out her colon Pt is accompanied by her little granddaughter, Shirin. Has a lot of acid that comes up. Continues to have upper abdominal pain - every day instead of once a week. Pain is very strong before a BM and feels weak after she has a BM. BMs are normal - 2-3 times a day. Sometimes she feels she is not getting rid of all the stool. felt better after starting Pantoprazole and it appears to have stopped working Allergy testing was negative in the past. Continues to have abdominal pain - not as bad as in the past. Continues to have acid despite taking pantoprazole daily. Feels burning in her chest. Has not had episodes of acid coming out of her nose and mouth recently Pt states I am having heartburn, I would say some constipation. No stomach pains. I have been having a few stomach problems. Woke up with acid coming out of her nose and mouth - 3 episodes over the past 2 months. Denies eating late, had spaghetti the night before. Had dinner at 6 pm and sleeps at 9 pm. Intermittent stabbing upper abdominal pain for the past year. She is frustrated and would like to have this resolved JOSE RAFAEL. Pain radiates laterally to the back and can be upto 10/10 Had terrible pain a few weeks ago after she had steak and she stopped eating steak. Pain can last for 4-5 days.? Still has discomfort and is not as strong. She burps a lot. Intermittent loose stools and constipated twice a month Can have 6 loose to watery BMs when she has diarrhea. No blood and intermittent mucous. Can wake up with no pain and can have pain after she has a BM. Intermittent nausea and vomited a few times a week. No change in appetite or weight. Admits to heartburn and was taking TUMS. Had normal BM once a day prior to onset of symptoms. Has anemia for the past 5 yrs. Had fibroids removed 2 yrs ago which helped with menorrhagia Patient denies major cardiac or pulmonary problems, Pt admits to having sleep apnea and uses a CPAP machine Denies problems with anesthesia in the past. Denies being on chronic anticoagulation. She was using Ibuprofen a lot and advised to stop taking it by her PCP two months ago. Pt denies past hx of PUD, joint pains.? ? rash which resolved Patient denies known family history of colon polyps, colon cancer or other GI malignancies. 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 Had a Colonoscopy in 2017 at [facility] - prep was not good [facility] Medical History Pruritus ani Overweight Grieving Disc degeneration, lumbar H. pylori infection Annual physical exam Normal Pap smear Chronic abdominal pain Chronic constipation DJD (degenerative joint disease), lumbar Uterine fibroid Hemorrhoids Iron deficiency Surgical History Hx of section History of esophagogastroduodenoscopy (EGD) H/O colonoscopy No pertinent past surgical history Family History Father No problems noted. 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 Cognitive needs: No Hearing needs: No Vision needs: Yes Review of Systems Const All systems reviewed & are unremarkable except as noted in HPI and below Physical Exam Vital Signs: Last Vital Signs Pulse 61 10/22/22 12:36 BP 131/67 10/22/22 12:36 BMI result Body Mass Index 49.6 Const General: healthy appearing and no acute distress Nutritional Appearance: malnourished, obese and other Orientation/consciousness: patient oriented x3 Limitations: no limitations HEENT Head: Yes normal to inspection Ears: hearing grossly normal bilaterally Eyes Sclerae: sclerae normal Pupils: Equal, round and reactive pupils present Neck Neck: Yes normal visual inspection Chest Chest palpation & inspection: normal inspection of the chest Resp Effort & Inspection: normal respiratory effort Auscultation: clear to auscultation bilaterally Cardio Palpation: normal PMI Rate: regular rate Rhythm: regular rhythm Heart sounds: S1 normal heart sound present, S2 normal heart sound present and no murmurs GI Palpation (GI): Soft to palpation, nontender and No hepatosplenomegaly present Auscultation: normal bowel sounds Rectal Exam - Female: deferred Skin General skin exam: no rashes or lesions noted Neuro General: patient oriented x3, gait normal and moves all extremities Cranial nerves: Yes Equal, round and reactive pupils present Psych Appearance: grossly normal Mental Status: mental status grossly normal Assessment & Plan Assessment & Plan (1) Iron deficiency: Code(s): E61.1 - Iron deficiency (2) Pruritus ani: Code(s): L29.0 - Pruritus ani (3) Hemorrhoids: Comment: status post surgery by Dr. Diaz 12/2017 Code(s): K64.9 - Unspecified hemorrhoids Qualifiers: Hemorrhoid type: unspecified Qualified Code(s): K64.9 - Unspecified hemorrhoids (4) GERD (gastroesophageal reflux disease): Code(s): K21.9 - Gastro-esophageal reflux disease without esophagitis Qualifiers: Esophagitis presence: esophagitis presence not specified Qualified Code(s): K21.9 - Gastro-esophageal reflux disease without esophagitis (5) Chronic idiopathic constipation: Code(s): K59.04 - Chronic idiopathic constipation (6) Abdominal bloating: Code(s): R14.0 - Abdominal distension (gaseous) (7) LLQ abdominal pain: Code(s): R10.32 - Left lower quadrant pain Plan 47 YF followed in GI for intermittent abdominal pain associated with change in bowel habits with intermittent loose non-bloody diarrhea. She was using Ibuprofen a lot and advised to stop taking it by her PCP a few months ago. She has chronic iron deficiency anemia attributed to menstrual blood loss. Her symptoms can be related to PUD or small bowel ulcers given past NSAID use, IBS with diarrhea, eosinophilic gastroenteritis or FMF, angioedema. Also need to rule out adrenal insufficiency, acute intermittent porphyria - urinary PBG during an episode of abdominal pain Patient denies improvement in symptoms with dicyclomine or a Imipramine. Her symptoms are likely due to IBS as above thacker was negative except for minimally elevated homocysteine levels which can be due to Vitamin B12, B 6 or folate deficiency. She took pantoprazole for 14 days after her visit to [facility] and noted partial improvement in her symptoms. 08/2020 EGD and Colon were performed and findings as noted above She was advised to: 1.? Stop pantoprazole and take Omeprazole 20 mg twice daily. 2.? Start taking a Probitoic and an MVI daily 3.? Go on a liquid diet and take Miralax prep to cleanse her colon to see if her abdominal pain improved 4.? Pt handout on IBS from [facility] was given to the patient Feels 50% improvement in heartburn Noted significant improvement in abdominal pain after taking medication to clean out her colon Stopped Linzess due to diarrhea. Advised to continue topical ointment for Anal Fissure and increase citrucil to twice a day Patient handout on anal fissure (from [facility]) was given to the patient. Referred to surgery for evaluation for lateral sphincterotomy for non-healing anal fissure I will check a fecal calprotectin to rule out Crohn's disease. Referred to [employer] to assist with wt loss for morbid obesity Pt was seen by Dr Gerber: She has severe itching along with recurrent dressing with the area with subsequent perianal skin breakdown.? She does not have an actual fissure in the anal canal.? She does not hypertonicity of the sphincters which is seen with an anal fissure.? Her perianal skin breakdown is likely secondary to her pruritus with frequent scratching.? I am going to prescribe her Calmoseptine for this.? I told her to avoid sugary food and caffeinated products. I will see her again in the office next month.? She may need to have a biopsy of the perianal skin if this does not improved. 09/2022 [facility]asp[facility] Endoscopy (evaluation of abd pain, NATHAN, elevated CRP and borderline fecal calprotectin of 86) was normal FU in 8 weeks Medications: New lubiprostone (Amitiza) 8 mcg PO BID 60 caps 3RF 30 days K59.09 - Other constipation Patient Instructions: Decrease Miralax to every other day instead of Daily Once Lubiprostone (Amitiza) is available - take it once a day at bedtime for a week. If you continue to have constipation then increase it to twice a day Coding Level of Care Code Est Pt Level 4 (76467) Diagnoses Iron deficiency E61.1 Pruritus ani L29.0 Hemorrhoids, unspecified hemorrhoid type K64.9 Hemorrhoid type: unspecified Gastroesophageal reflux disease, unspecified whether esophagitis present K21.9 Esophagitis presence: esophagitis presence not specified Chronic idiopathic constipation K59.04 Abdominal bloating R14.0 LLQ abdominal pain R10.32 Time Spent (min) 22
[2022-10-22 12:36] VITALS: BP 131/67; PULSE 61; BMI 49.6
== END 2022-10-22 14:19 | disposition home or self-care (01) ==
PROVIDERS: PCP Internal Medicine; Visit Provider Internal Medicine Gastroenterology
DX: E61.1 Iron deficiency (principal); L29.0 Pruritus ani; K64.9 Unspecified hemorrhoids; K21.9 Gastro-esophageal reflux disease without esophagitis; K59.04 Chronic idiopathic constipation; R14.0 Abdominal distension (gaseous); R10.32 Left lower quadrant pain
CPT/HCPCS: 99214

== ENCOUNTER → 2022-10-22 12:33 | Outpatient (BNVA) | payer OTHER, SELFPAY | PROVIDERS: PCP Internal Medicine; Visit Provider Internal Medicine Gastroenterology | DX: R10.32 Left lower quadrant pain (principal); R14.0 Abdominal distension (gaseous); K59.04 Chronic idiopathic constipation; E61.1 Iron deficiency; L29.0 Pruritus ani; K64.9 Unspecified hemorrhoids; K21.9 Gastro-esophageal reflux disease without esophagitis | CPT/HCPCS: 99212 ==

== ENCOUNTER 2022-12-24 09:12 | Outpatient (AMB) | payer OTHER, SELFPAY ==
--- NOTE | 2022-12-24 09:13 | MHC.OFFVIS ---
Intake Visit Reasons: abdominal bloating Intake Note: Adiel presents on the phone for a telehealth visit for abdominal bloating PT CC: pt reports having abdominal bloating pt denies any other GI Issues Collection Systems Consultant Required: No Accompanied by: Self / Same As Patient Allergies No Known Allergies Allergy (Verified 02/18/23 11:25) Medication List - Last Reconciled 12/24/22 by Bubba Casanova MD ascorbate calcium (vitamin C) 500 mg PO DAILY clindamycin phosphate 1% topical QAM docusate sodium 100 mg PO BEDTIME ferrous sulfate 325 mg PO DAILY Lactobacillus rhamnosus GG (Culturelle) 1 cap PO DAILY 90 days lubiprostone (Amitiza) 8 mcg PO BID 30 days methylcellulose (laxative) (Citrucel) 500 mg PO DAILY multivitamin with folic acid 400 mcg (Daily-Bisi (with folic acid)) 1 tab PO QAM omeprazole 40 mg PO DAILY 90 days polyethylene glycol 3350 (Miralax) 17 grams PO DAILY 1 day sennosides (Natural Senna Laxative) 17.2 mg (2 x 8.6 mg) PO BEDTIME simethicone (Anti-Gas Ultra Strength) 180 mg PO QID 30 days HPI HPI abdominal bloating: Details: GI FU visit for this 47-year-old female for FU of chronic abdominal pain and bloating Pt was referred by Silva Daley NP in the past for a 2nd opinion IMAGING STUDIES:? 07/11/[address] SCAN SHOWED: Low attenuation structures within the adnexa bilaterally measuring 2 x 1.5 cm on the left and 1.2 cm on the right. The structure on the right is a thin rim enhancement. This could represent cyst or dominant follicles. On the right, given the thin rim of enhancement, corpus luteum could be a consideration as well. Further evaluation could be obtained with pelvic ultrasound. Mild hepatomegaly. ENDOSCOPIC STUDIES:? 09/2022 CAPSULE ENDOSCOPY SHOWED: Findings: stomach appeared normal. Duodenum entered at 23 mins. Good visualization of small bowel and no masses, ulcers or bleeding points noted. Cecum reached at 3 hr 36 min Conclusion: normal study, no active bleeding seen. 08/2020 EGD? AND COLONOSCOPY SHOWED: Endoscopy Findings: STOMACH: Mild gastric erythema with a single antral erosion - biopsied. Colonoscopy Findings: No polyps were detected. Random biopsies obtained from right and colon.? Biopsies obtained from the rectum to rule out amyloidosis Moderate diverticulosis seen in the sigmoid colon Small hemorrhoids on retroflexed exam. Plan:? Patient has an appointment on 10/31/20 in the GI Clinic with Bubba Casanova M.D.. Repeat Colonoscopy interval based on path results - in 10 years if biopsies are normal. BIOPSIES SHOWED: A.? Small bowel, biopsy:? Duodenal mucosa within normal limits. B.? Stomach, antrum, biopsy:? Antral-type mucosa with moderate chronic inactive inflammation; no Helicobacter organisms seen. C.? Stomach, erosion, biopsy:? Oxyntic mucosa with moderate chronic inactive inflammation and patchy atrophy; no Helicobacter organisms seen. D.? Stomach, body, biopsy:? Oxyntic mucosa with mild chronic inactive inflammation; no atrophy seen; no Helicobacter organisms seen. E.? Colon, random right, biopsy:? Melanosis coli; otherwise colonic mucosa within normal limits. F.? Colon, random left, biopsy:? Colonic mucosa within normal limits. G.? Rectum, biopsy:? TODAY'S VISIT: PT CC: pt reports having abdominal bloating pt denies any other GI Issues Continues to have a lot of bloating. Prescription for Amitiza was not approved by the pharmacy - refill sent. Symptoms are worse after she eats cheese, ice cream and yogurt and prescribed Lactaid pills to take with milk products. PAST VISIT: Having stomach pain and a lot of gas. Has a BM twice a day - stools can be hard intermittently Anal itching resolved and does not need to use topical cream any more Menstrual bleeding is not too bad at present Everytime I have a BM, my stomach hurts Has intermittent fecal incontinence - twice a week with leakage of loose stools when she passes gas No longer has a fissure any more. Trying to eat less and having less frequent BM. Perianal area is still irritated and not as painful. Capsule endoscopy results reviewed with the patient Patient cc: abdominal pain/bloating with a lot of gas, GERD with burning sensation. Denies any other GI issues. Feels 50% improvement in heartburn Noted significant improvement in abdominal pain after taking medication to clean out her colon Getting depressed due to GI issues Rectal pain and diagnosed with anal fissure (by Dr Kate at [facility]) and was prescribed topical cream which was compounded (? NTG) - still using it twice daily and fissure has not healed. Notes blood on the tissue when she wipes. Feels she is unable to empty herself completely. Noted diarrhea when she was taking the Linzess and Linzess was stopped by [place]. [place] good when she was taking Linzess - was having several BMs a day. Notes rectal itching when she uses the bathroom - diagnosed with eczema involving the rectum. Noted significant improvement in abdominal pain after taking medication to clean out her colon Pt is accompanied by her little granddaughter, Shirin. Has a lot of acid that comes up. Continues to have upper abdominal pain - every day instead of once a week. Pain is very strong before a BM and feels weak after she has a BM. BMs are normal - 2-3 times a day. Sometimes she feels she is not getting rid of all the stool. felt better after starting Pantoprazole and it appears to have stopped working Allergy testing was negative in the past. Continues to have abdominal pain - not as bad as in the past. Continues to have acid despite taking pantoprazole daily. Feels burning in her chest. Has not had episodes of acid coming out of her nose and mouth recently Pt states I am having heartburn, I would say some constipation. No stomach pains. I have been having a few stomach problems. Woke up with acid coming out of her nose and mouth - 3 episodes over the past 2 months. Denies eating late, had spaghetti the night before. Had dinner at 6 pm and sleeps at 9 pm. Intermittent stabbing upper abdominal pain for the past year. She is frustrated and would like to have this resolved JOSE RAFAEL. Pain radiates laterally to the back and can be upto 10/10 Had terrible pain a few weeks ago after she had steak and she stopped eating steak. Pain can last for 4-5 days.? Still has discomfort and is not as strong. She burps a lot. Intermittent loose stools and constipated twice a month Can have 6 loose to watery BMs when she has diarrhea. No blood and intermittent mucous. Can wake up with no pain and can have pain after she has a BM. Intermittent nausea and vomited a few times a week. No change in appetite or weight. Admits to heartburn and was taking TUMS. Had normal BM once a day prior to onset of symptoms. Has anemia for the past 5 yrs. Had fibroids removed 2 yrs ago which helped with menorrhagia Patient denies major cardiac or pulmonary problems, Pt admits to having sleep apnea and uses a CPAP machine Denies problems with anesthesia in the past. Denies being on chronic anticoagulation. She was using Ibuprofen a lot and advised to stop taking it by her PCP two months ago. Pt denies past hx of PUD, joint pains.? ? rash which resolved Patient denies known family history of colon polyps, colon cancer or other GI malignancies. 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 Had a Colonoscopy in 2017 at [facility] - prep was not good [facility] Medical History Pruritus ani Overweight Grieving Disc degeneration, lumbar H. pylori infection Annual physical exam Normal Pap smear Chronic abdominal pain Chronic constipation DJD (degenerative joint disease), lumbar Uterine fibroid Hemorrhoids Iron deficiency Surgical History Hx of section History of esophagogastroduodenoscopy (EGD) H/O colonoscopy No pertinent past surgical history Family History Father No problems noted. 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 Cognitive needs: No Hearing needs: No Vision needs: Yes Review of Systems Const All systems reviewed & are unremarkable except as noted in HPI and below Telehealth Telehealth Location of provider rendering services: practice address Location of patient: address on file Patient Identification confirmed using: Name, : Yes Telehealth method: voice only Patient verbally consented to treatment: Yes Patient verbally consented to billing insurance company: Yes Patient informed of any privacy concerns related to visit: Yes Minutes spent on Phone/Video with Pt.: 15 Assessment & Plan Assessment & Plan (1) Iron deficiency: Code(s): E61.1 - Iron deficiency Category: Medical (2) Pruritus ani: Code(s): L29.0 - Pruritus ani Category: Medical (3) Hemorrhoids: Comment: status post surgery by Dr. Diaz 12/2017 Code(s): K64.9 - Unspecified hemorrhoids Category: Medical Qualifiers: Hemorrhoid type: unspecified Qualified Code(s): K64.9 - Unspecified hemorrhoids (4) Iron deficiency: Code(s): E61.1 - Iron deficiency Category: Medical (5) Chronic abdominal pain: Code(s): R10.9 - Unspecified abdominal pain; G89.29 - Other chronic pain Category: Medical (6) H. pylori infection: Code(s): A04.8 - Other specified bacterial intestinal infections Category: Medical (7) GERD (gastroesophageal reflux disease): Code(s): K21.9 - Gastro-esophageal reflux disease without esophagitis Category: Medical Qualifiers: Esophagitis presence: esophagitis presence not specified Qualified Code(s): K21.9 - Gastro-esophageal reflux disease without esophagitis (8) Chronic idiopathic constipation: Code(s): K59.04 - Chronic idiopathic constipation Category: Medical (9) Abdominal bloating: Code(s): R14.0 - Abdominal distension (gaseous) Category: Medical (10) Lactose intolerance in adult: Code(s): E73.9 - Lactose intolerance, unspecified Category: Medical Plan 47 YF followed in GI for intermittent abdominal pain associated with change in bowel habits with intermittent loose non-bloody diarrhea. She was using Ibuprofen a lot and advised to stop taking it by her PCP a few months ago. She has chronic iron deficiency anemia attributed to menstrual blood loss. Her symptoms can be related to PUD or small bowel ulcers given past NSAID use, IBS with diarrhea, eosinophilic gastroenteritis or FMF, angioedema. Also need to rule out adrenal insufficiency, acute intermittent porphyria - urinary PBG during an episode of abdominal pain Patient denies improvement in symptoms with dicyclomine or a Imipramine. Her symptoms are likely due to IBS as above thacker was negative except for minimally elevated homocysteine levels which can be due to Vitamin B12, B 6 or folate deficiency. She took pantoprazole for 14 days after her visit to [facility] and noted partial improvement in her symptoms. 08/2020 EGD and Colon were performed and findings as noted above She was advised to: 1.? Stop pantoprazole and take Omeprazole 20 mg twice daily. 2.? Start taking a Probitoic and an MVI daily 3.? Go on a liquid diet and take Miralax prep to cleanse her colon to see if her abdominal pain improved 4.? Pt handout on IBS from [facility] was given to the patient Feels 50% improvement in heartburn Noted significant improvement in abdominal pain after taking medication to clean out her colon Stopped Linzess due to diarrhea. Advised to continue topical ointment for Anal Fissure and increase citrucil to twice a day Patient handout on anal fissure (from [facility]) was given to the patient. Referred to surgery for evaluation for lateral sphincterotomy for non-healing anal fissure I will check a fecal calprotectin to rule out Crohn's disease. Referred to [facility] to assist with wt loss for morbid obesity 12/24/22 Advised to take Lactaid pills with milk products [place] of Amitiza for constipation - not approved by the pharmacy - refill sent. Symptoms are worse after she eats cheese, ice cream and yogurt and prescribed Lactaid pills to take with milk products. Pt was seen by Dr Gerber: She has severe itching along with recurrent dressing with the area with subsequent perianal skin breakdown.? She does not have an actual fissure in the anal canal.? She does not hypertonicity of the sphincters which is seen with an anal fissure.? Her perianal skin breakdown is likely secondary to her pruritus with frequent scratching.? I am going to prescribe her Calmoseptine for this.? I told her to avoid sugary food and caffeinated products. I will see her again in the office next month.? She may need to have a biopsy of the perianal skin if this does not improved. 09/2022 Caspule Endoscopy (evaluation of abd pain, NATHAN, elevated CRP and borderline fecal calprotectin of 86) was normal FU in 2 months Medications: New lactase (Lactaid Fast Act) administer with meals and/or snacks 9,000 units PO QID PRN 30 tabs 1RF lactose intolerance 30 days E73.9 - Lactose intolerance, unspecified Refilled lubiprostone (Amitiza) 8 mcg PO BID 60 caps 3RF 30 days K59.09 - Other constipation Coding Level of Care Code Tele Est Pt Level 3 (41501) Diagnoses Iron deficiency E61.1 Pruritus ani L29.0 Hemorrhoids, unspecified hemorrhoid type K64.9 Hemorrhoid type: unspecified Chronic abdominal pain R10.9; G89.29 H. pylori infection A04.8 Gastroesophageal reflux disease, unspecified whether esophagitis present K21.9 Esophagitis presence: esophagitis presence not specified Chronic idiopathic constipation K59.04 Abdominal bloating R14.0 Lactose intolerance in adult E73.9 Time Spent (min) 15
== END 2022-12-24 15:58 | disposition home or self-care (01) ==
LOC: HO.HGI 09:12
PROVIDERS: PCP Internal Medicine; Visit Provider Internal Medicine Gastroenterology
DX: E61.1 Iron deficiency (principal); L29.0 Pruritus ani; K64.9 Unspecified hemorrhoids; R10.9 Unspecified abdominal pain; G89.29 Other chronic pain; A04.8 Other specified bacterial intestinal infections; K21.9 Gastro-esophageal reflux disease without esophagitis; K59.04 Chronic idiopathic constipation; R14.0 Abdominal distension (gaseous); E73.9 Lactose intolerance, unspecified
CPT/HCPCS: 99499

== ENCOUNTER → 2022-12-24 09:12 | Outpatient (BNVA) | payer OTHER, SELFPAY | PROVIDERS: PCP Internal Medicine; Visit Provider Internal Medicine Gastroenterology ==

== ENCOUNTER 2023-01-11 14:03 | Outpatient (AMB) | payer OTHER, SELFPAY ==
[2023-01-11 14:23] VITALS: BP 112/72; PULSE 64; O2SAT 99; BMI 48.8
--- NOTE | 2023-01-11 14:23 | A.OFFPC_ITS ---
Vital Signs 01/11/23 14:23 Height 5 ft 2 in Weight 267 lb BMI 48.8 BP 112/72 Blood Pressure Location Lt brachial Position Sitting Pulse 64 Pulse Source Pulse Oximeter Pulse Oximetry (%) 99 Oxygen Delivery Method Room Air Intake Visit Reasons: follow up Intake Note: Pt is here today for a follow up visit. Allergies No Known Allergies Allergy (Verified 01/11/23 14:31) Medication List - Last Reconciled 01/11/23 by Daniella Morris MD ascorbate calcium (vitamin C) 500 mg PO DAILY clindamycin phosphate 1% topical QAM docusate sodium 100 mg PO BEDTIME ferrous sulfate 325 mg PO DAILY lactase (Lactaid Fast Act) 9,000 units PO QID PRN 30 days Lactobacillus rhamnosus GG (Culturelle) 1 cap PO DAILY 90 days lubiprostone (Amitiza) 8 mcg PO BID 30 days methylcellulose (laxative) (Citrucel) 500 mg PO DAILY multivitamin with folic acid 400 mcg (Daily-Bisi (with folic acid)) 1 tab PO QAM omeprazole 40 mg PO DAILY 90 days polyethylene glycol 3350 (Miralax) 17 grams PO DAILY 1 day sennosides (Natural Senna Laxative) 17.2 mg (2 x 8.6 mg) PO BEDTIME simethicone (Anti-Gas Ultra Strength) 180 mg PO QID 30 days Tobacco use date assessed: 09/11/22 Dental Screening Dental Screen Date: 01/11/23 Did you have a dental visit in the last 12 months?: Yes Did you have a dental problem in the last 6 months where you did not have access to dental care?: No Was dental information given to patient?: Patient has dentist HPI follow up HPI Details Pt c/o R knee pain worse when sitting and also at night for 2 months. Pt denies any injury, joint swelling but reports morning stiffness when waking up. PFSH Medical History Pruritus ani Overweight Grieving Disc degeneration, lumbar H. pylori infection Annual physical exam Normal Pap smear Chronic abdominal pain Chronic constipation DJD (degenerative joint disease), lumbar Uterine fibroid Hemorrhoids Iron deficiency Surgical History Hx of section History of esophagogastroduodenoscopy (EGD) H/O colonoscopy No pertinent past surgical history Family History Father No problems noted. 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 Endy Rodriguez, Constanza Celeste, Porfirio Esquivel and colleagues, with an educational erwin from [employer]. Review of Systems Const All systems reviewed & are unremarkable except as noted in HPI and below Reports no additional complaints Eyes Reports no additional complaints ENT Reports no additional complaints Card Reports no additional complaints Resp Reports no additional complaints GI Reports no additional complaints Physical exam (Primary Care) Vital Signs: Last Vital Signs Pulse 64 01/11/23 14:23 BP 112/72 01/11/23 14:23 Pulse Ox 99 01/11/23 14:23 Oxygen Delivery Method Room Air 01/11/23 14:23 BMI result Body Mass Index 48.8 Tobacco/Smoking Status: Tobacco use Status Tobacco use date assessed 09/11/22 01/11/23 14:24 Patient Tobacco Use Status Former Tobacco user 01/11/23 14:24 e-Cigarette/Vaping Use Never Used 01/11/23 14:24 Thrive Assessment: Date of Thrive Assessment Date Thrive assessed 09/11/22 01/11/23 14:24 Const General: no acute distress HENMT Head: Yes normal to inspection Neck Neck: Yes supple Resp Effort & Inspection: normal respiratory effort Auscultation: clear to auscultation bilaterally Cardio Rhythm: regular rhythm Heart sounds: S1 normal heart sound present and S2 normal heart sound present GI Inspection: Yes normal to inspection Palpation (GI): Soft to palpation Extrem Other: slightly decreased range of motion right knee medial aspect tenderness, no soft tissue swelling, erythema or warmth Assessment and Plan Assessment & Plan (1) Knee pain, right: Code(s): M25.561 - Pain in right knee Plan: Check knee x-ray and referred for physical therapy meloxicam as prescribed. If the symptoms persist patient will be referred to ortho (2) Hyperglycemia: Code(s): R73.9 - Hyperglycemia, unspecified Plan: Continue ADA diet check A1c (3) Iron deficiency: Code(s): E61.1 - Iron deficiency Plan: Continue iron supplement (4) Annual physical exam: Code(s): Z00.00 - Encounter for general adult medical examination without abnormal findings Plan: Return for physical in January with fasting labs Orders: Orders PT Evaluation and Treatment Today M25.561 - Pain in right knee Comprehensive [place]. Panel Fast 1 Month E61.1 - Iron deficiency, R73.9 - Hyperglycemia, unspecified, Z00.00 - Encounter for general adult medical examination without abnormal findings Complete Blood Count Auto Diff 1 Month E61.1 - Iron deficiency, R73.9 - Hyperglycemia, unspecified, Z00.00 - Encounter for general adult medical examination without abnormal findings Lipid Panel 1 Month E61.1 - Iron deficiency, R73.9 - Hyperglycemia, unspecified, Z00.00 - Encounter for general adult medical examination without abnormal findings Hemoglobin A1c 1 Month E61.1 - Iron deficiency, R73.9 - Hyperglycemia, unspecified, Z00.00 - Encounter for general adult medical examination without abnormal findings IRON PROFILE 1 Month E61.1 - Iron deficiency, R73.9 - Hyperglycemia, unspecified, Z00.00 - Encounter for general adult medical examination without abnormal findings Reticulocyte Count 1 Month E61.1 - Iron deficiency, R73.9 - Hyperglycemia, unspecified, Z00.00 - Encounter for general adult medical examination without abnormal findings Medications: New cholecalciferol (vitamin D3) 50 mcg PO DAILY 90 tabs 1RF meloxicam 15 mg PO DAILY 10 tabs 0RF Coding Level of Care Code Est Pt Level 4 (65386) Diagnoses Knee pain, right M25.561 Hyperglycemia R73.9 Iron deficiency E61.1 Annual physical exam Z00.00
== END 2023-01-11 15:04 | disposition home or self-care (01) ==
PROVIDERS: PCP Internal Medicine; Visit Provider Internal Medicine
DX: M25.561 Pain in right knee (principal); R73.9 Hyperglycemia, unspecified; E61.1 Iron deficiency; Z00.00 Encounter for general adult medical examination without abnormal findings
CPT/HCPCS: 99214

== ENCOUNTER 2023-01-11 14:57 | Outpatient (REF) | payer OTHER, SELFPAY ==
--- NOTE | ~2023-01-11 | XR_ITS ---
EXAMINATION: XR KNEE, RIGHT CLINICAL INFORMATION: Right knee pain COMPARISON: None available. TECHNIQUE: Four views of the right knee. FINDINGS: No fracture or joint effusion. Alignment is anatomic. Joint spaces are maintained. No abnormal soft tissue calcification. XR/XR knee RT 4V IMPRESSION: Unremarkable right knee exam
== END 2023-01-11 14:58 | disposition home or self-care (01) ==
LOC: HO.HMGCX 14:57
PROVIDERS: PCP Internal Medicine; Visit Provider Internal Medicine
DX: M25.561 Pain in right knee (principal)
CPT/HCPCS: 73564

== ENCOUNTER 2023-02-09 07:29 | Outpatient (AMB) | payer OTHER, SELFPAY ==
--- NOTE | 2023-02-09 07:32 | MHC.PC.OV ---
Vital Signs 02/09/23 07:34 Height 5 ft 2 in Weight 265 lb BMI 48.5 BP 118/76 Blood Pressure Location Lt brachial Position Sitting Pulse 74 Pulse Source Pulse Oximeter Pulse Oximetry (%) 98 Oxygen Delivery Method Room Air Intake Visit Reasons: Annual PE Allergies No Known Allergies Allergy (Verified 02/09/23 07:34) Medication List - Last Reconciled 02/09/23 by Daniella Morris MD ascorbate calcium (vitamin C) 500 mg PO DAILY cholecalciferol (vitamin D3) 50 mcg PO DAILY clindamycin phosphate 1% topical QAM docusate sodium 100 mg PO BEDTIME ferrous sulfate 325 mg PO DAILY lactase (Lactaid Fast Act) 9,000 units PO QID PRN 30 days Lactobacillus rhamnosus GG (Culturelle) 1 cap PO DAILY 90 days lubiprostone (Amitiza) 8 mcg PO BID 30 days meloxicam 15 mg PO DAILY methylcellulose (laxative) (Citrucel) 500 mg PO DAILY multivitamin with folic acid 400 mcg (Daily-Bisi (with folic acid)) 1 tab PO QAM omeprazole 40 mg PO DAILY 90 days polyethylene glycol 3350 (Miralax) 17 grams PO DAILY 1 day sennosides (Natural Senna Laxative) 17.2 mg (2 x 8.6 mg) PO BEDTIME simethicone (Anti-Gas Ultra Strength) 180 mg PO QID 30 days Tobacco use date assessed: 09/11/22 Dental Screening Dental Screen Date: 02/09/23 Did you have a dental visit in the last 12 months?: Yes Did you have a dental problem in the last 6 months where you did not have access to dental care?: No Was dental information given to patient?: Patient has dentist HPI Annual PE HPI Details Pt presents for PE. Patient complains of persistent right knee pain worse when walking behind the knee and the right side. Patient denies joint swelling or trauma. Knee x-ray was normal [facility] Medical History Pruritus ani Overweight Grieving Disc degeneration, lumbar H. pylori infection Annual physical exam Normal Pap smear Chronic abdominal pain Chronic constipation DJD (degenerative joint disease), lumbar Uterine fibroid Hemorrhoids Iron deficiency Surgical History Hx of section History of esophagogastroduodenoscopy (EGD) H/O colonoscopy No pertinent past surgical history Family History Father No problems noted. 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 1. Little interest or pleasure in doing things: several days 2. Feeling down, depressed, or hopeless: several days 3. Trouble falling or staying asleep, or sleeping too much: not at all 4. Feeling tired or having little energy: several days 5. Poor appetite or overeating: not at all 6. Feeling bad about yourself - or that you are a failure or have let yourself or your family down: not at all 7. Trouble concentrating on things, such as reading the newspaper or watching television: several days 8. Moving or speaking so slowly that other people could have noticed. Or the opposite - being so fidgety or restless that you have been moving around a lot more than usual: not at all 9. Thoughts that you would be better off or of hurting yourself in some way: not at all Total score: 4 Depression Screening Interpretation: Negative Depression Screening Done: Yes Source: Developed by Drs. Endy Rodriguez, Constanza Celeste, Porfirio Esquivel and colleagues, with an educational erwin from [employer] Thrive Questionnaire Date Thrive assessed: 02/09/23 I am a: Patient What is your living situation today?: I have a steady place to live Within the past 12 months, did the food you bought not last and you didn't have the money to get more?: Never true Within the past 12 months, did you worry whether your food would run out before you got money to buy more?: Never true Do you have trouble paying for medicines?: No Do you have trouble getting transportation to medical appointments?: No Do you have trouble paying your heating and electricity bill?: No Do you have trouble taking care of your child, family member or friend?: No Do you have trouble with day-to-day activities such as bathing, preparing meals, shopping, managing finances, etc.?: No Are you currently unemployed and looking for a job?: No Are you interested in more education?: No Please select the resources that you would like help with: None Currently or been in a relationship where the following occur: no concerns reported AUDIT C Alcohol Use Questionnaire (AUDIT-C) 1. How often do you have a drink containing alcohol?: Monthly or less 2. How many drinks containing alcohol do you have on a typical day when you are drinking?: 1 or 2 3. How often do you have six or more drinks on one occasion?: Never Total Score: 1 FARA-7 AMB Questionnaire FARA-7 Date FARA - 7 assessed: 02/09/23 Feeling nervous, anxious, or on edge: 1 = Several days Not being able to stop or control worryin = Several days Worrying too much about different things: 1 = Several days Trouble relaxin = Several days Being so restless that it is hard to sit still: 0 = Not at all Becoming easily annoyed or irritable: 1 = Several days Feeling afraid as if something awful might happen: 1 = Several days Total FARA-7 score (0-4 normal; 5-9 mild; 10-14 moderate; 15-21 severe): 6 Source: Developed by Drs. Endy Rodriguez, Constanza Celeste, Porfirio Esquivel and colleagues, with an educational erwin from [employer] Review of Systems Const All systems reviewed & are unremarkable except as noted in HPI and below Reports no additional complaints Eyes Reports no additional complaints ENT Reports no additional complaints Card Reports no additional complaints Resp Reports no additional complaints GI Reports no additional complaints Reports no additional complaints Physical exam (Primary Care) Vital Signs: Last Vital Signs Pulse 74 02/09/23 07:34 BP 118/76 02/09/23 07:34 Pulse Ox 98 02/09/23 07:34 Oxygen Delivery Method Room Air 02/09/23 07:34 BMI result Body Mass Index 48.5 Tobacco/Smoking Status: Tobacco use Status Tobacco use date assessed 09/11/22 02/09/23 07:37 Patient Tobacco Use Status Former Tobacco user 02/09/23 07:37 e-Cigarette/Vaping Use Never Used 02/09/23 07:37 PHQ-9: PHQ-9 Score PHQ-9: Total score 4 02/09/23 08:24 Depression Screening Interpretation: Negative Thrive Assessment: Date of Thrive Assessment Date Thrive assessed 02/09/23 02/09/23 08:24 Currently or been in a relationship where the following occur: no concerns reported Const General: no acute distress HENMT Ears: hearing grossly normal bilaterally Mouth: Normal oral and palatal mucosa present Throat: Yes posterior oropharynx normal Eyes General: appearance normal, both eyes and all related structures Neck Neck: Yes no lymphadenopathy Resp Effort & Inspection: normal respiratory effort Auscultation: clear to auscultation bilaterally Cardio Rhythm: regular rhythm Heart sounds: S1 normal heart sound present and S2 normal heart sound present GI Inspection: Yes normal to inspection Palpation (GI): Soft to palpation Percussion: Yes normal to percussion Auscultation: normal bowel sounds Extrem Other: There is a decreased range of motion and lateral aspect tenderness of the right knee no soft tissue swelling erythema or warmth General: Yes no clubbing, cyanosis or edema Assessment and Plan Assessment & Plan (1) Knee pain, right: Code(s): M25.561 - Pain in right knee Plan: Referred to physical therapy, if the pain persists patient requests a referral to [facility] (2) Annual physical exam: Code(s): Z00.00 - Encounter for general adult medical examination without abnormal findings Plan: well balanced diet, regular exercise, weight loss discussed, schedule mammogram (3) Morbid obesity: Code(s): E66.01 - Morbid (severe) obesity due to excess calories Orders: Orders MM screening mammo BI Today Z12.31 - Encounter for screening mammogram for malignant neoplasm of breast Complete Blood Count Auto Diff 365 Days E61.1 - Iron deficiency, E66.01 - Morbid (severe) obesity due to excess calories, R73.9 - Hyperglycemia, unspecified, Z00.00 - Encounter for general adult medical examination without abnormal findings Comprehensive [place]. Panel Fast 365 Days E61.1 - Iron deficiency, E66.01 - Morbid (severe) obesity due to excess calories, R73.9 - Hyperglycemia, unspecified, Z00.00 - Encounter for general adult medical examination without abnormal findings TSH reflex Free T4 365 Days E61.1 - Iron deficiency, E66.01 - Morbid (severe) obesity due to excess calories, R73.9 - Hyperglycemia, unspecified, Z00.00 - Encounter for general adult medical examination without abnormal findings PT Evaluation and Treatment Today M25.561 - Pain in right knee IRON PROFILE 365 Days E61.1 - Iron deficiency, E66.01 - Morbid (severe) obesity due to excess calories, R73.9 - Hyperglycemia, unspecified, Z00.00 - Encounter for general adult medical examination without abnormal findings Lipid Panel 365 Days E61.1 - Iron deficiency, E66.01 - Morbid (severe) obesity due to excess calories, R73.9 - Hyperglycemia, unspecified, Z00.00 - Encounter for general adult medical examination without abnormal findings Hemoglobin A1c 365 Days E61.1 - Iron deficiency, E66.01 - Morbid (severe) obesity due to excess calories, R73.9 - Hyperglycemia, unspecified, Z00.00 - Encounter for general adult medical examination without abnormal findings Referrals Orthopedics Referral M25.561 - Pain in right knee Coding Level of Care Code Est Pt Prev Care 40-64y(95638) Diagnoses Knee pain, right M25.561 Annual physical exam Z00.00 Morbid obesity E66.01
[2023-02-09 07:34] VITALS: BP 118/76; PULSE 74; O2SAT 98; BMI 48.5
== END 2023-02-09 10:18 | disposition home or self-care (01) ==
PROVIDERS: Visit Provider Internal Medicine
DX: Z00.00 Encounter for general adult medical examination without abnormal findings (principal); M25.561 Pain in right knee; E66.01 Morbid (severe) obesity due to excess calories; Z68.42 Body mass index [BMI] 45.0-49.9, adult
CPT/HCPCS: 99396

== ENCOUNTER 2023-02-18 11:01 | Outpatient (AMB) | payer OTHER, SELFPAY ==
[2023-02-18 11:23] VITALS: BP 122/80; PULSE 81; TEMP 36.5; O2SAT 97; BMI 48.9
--- NOTE | 2023-02-18 11:23 | MHC.OFFWIV ---
Intake Vital Signs 02/18/23 11:23 Height 5 ft 2 in Weight 267 lb 2 oz BMI 48.9 BP 122/80 Blood Pressure Location Rt brachial Position Sitting Pulse 81 Pulse Source Pulse Oximeter Temp 97.7 F Temp Source Temporal Artery Scan Pulse Oximetry (%) 97 Oxygen Delivery Method Room Air Intake Visit Reasons: EST/right eye pain(lobby) Intake Note: Pt presents to the office today for c/o right eye pain that started on wednesday. Pt denies any trauma to the area. Pt states when she woke up this morning she had green discharge in it and it was hard to open her eye. Patient Tobacco Use Status: Former Tobacco user Quit Date: quit 1 yr ago Allergies No Known Allergies Allergy (Verified 02/18/23 11:25) HPI HPI Comments History of Present Illness Details The patient presents to urgent care for evaluation of right eyelid swelling. She states that she has had some pain to the right eye since Wednesday. She went to urgent care on Wednesday and was prescribed erythromycin ointment but did not have any significant erythema to the eye. She reports that when she woke today her eyelids were swollen and there was some greenish crusting and drainage in the right eye. She has a mild pain around the eye and slight headache. No visual changes. [facility] Medical History (Reviewed 02/18/23 @ 11: by Malorie Barraza MA) Pruritus ani Overweight Grieving Disc degeneration, lumbar H. pylori infection Annual physical exam Normal Pap smear Chronic abdominal pain Chronic constipation DJD (degenerative joint disease), lumbar Uterine fibroid Hemorrhoids Iron deficiency Surgical History Hx of section History of esophagogastroduodenoscopy (EGD) H/O colonoscopy No pertinent past surgical history Family History (Reviewed 02/18/23 @ 11: by Malorie Barraza MA) Father No problems noted. 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 Cognitive needs: No Hearing needs: No Vision needs: Yes Review of Systems Const Denies headache(s) Eyes Denies change in vision, Denies dry eyes, Denies floaters, Denies irritation, Reports itchy eyes and Denies eye pain ENT Reports no additional complaints and Denies headache(s) Card Reports no additional complaints Musc Denies numbness Skin/Breast Denies skin pain, Denies skin swelling and Denies unusual bruising Neuro Denies headache(s), Denies focal weakness and Denies numbness Aller/Immun Reports itchy eyes Physical Exam Vital Signs: Last Vital Signs Temp 97.7 F 02/18/23 11:23 Pulse 81 02/18/23 11:23 BP 122/80 02/18/23 11:23 Pulse Ox 97 02/18/23 11:23 Oxygen Delivery Method Room Air 02/18/23 11:23 BMI result Body Mass Index 48.9 Const General: healthy appearing and no acute distress Orientation/consciousness: patient oriented x3 Eyes Other: Upper and lower eyelid edema no significant conjunctival injection. No drainage appreciated no foreign body noted Eyelids: Yes eyelids normal Conjunctivae: conjunctival abnormal bilateral conjunctival injection Pupils: Equal, round and reactive pupils present EOM: EOMs intact bilaterally Neuro General: patient oriented x3 Cranial nerves: Yes Equal, round and reactive pupils present Assessment & Plan Assessment & Plan (1) Conjunctivitis: Code(s): H10.9 - Unspecified conjunctivitis Plan Assessment: Conjunctivitis Patient's symptoms are consistent with conjunctivitis. Patient will continue on erythromycin ointment. She was informed that most likely this is viral and that is why it is progressing despite antibiotic ointment. Recommend return if symptoms persist next week. Coding Level of Care Code Est Pt Level 3 (03420) Diagnoses Conjunctivitis H10.9
== END 2023-02-18 11:53 | disposition home or self-care (01) ==
PROVIDERS: PCP Internal Medicine; Visit Provider Emergency Medicine
DX: H10.31 Unspecified acute conjunctivitis, right eye (principal)
CPT/HCPCS: 99213

== ENCOUNTER 2023-02-18 11:56 | Outpatient (AMB) | payer OTHER, SELFPAY ==
--- NOTE | 2023-02-18 11:57 | A.OFFVIS_ITS ---
Intake Intake Visit Reasons: follow up Intake Note: Patient telehealth follow up for abdominal bloating. Patient cc: acid reflex and some constipation on and off. Denies any other GI issues. 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 Allergies No Known Allergies Allergy (Verified 02/18/23 11:25) Medication List - Last Reconciled 02/18/23 by Bubba Casanova MD ascorbate calcium (vitamin C) 500 mg PO DAILY cholecalciferol (vitamin D3) 50 mcg PO DAILY clindamycin phosphate 1% topical QAM docusate sodium 100 mg PO BEDTIME erythromycin ophthalmic (eye) ferrous sulfate 325 mg PO DAILY lactase (Lactaid Fast Act) 9,000 units PO QID PRN 30 days Lactobacillus rhamnosus GG (Culturelle) 1 cap PO DAILY 90 days lubiprostone (Amitiza) 8 mcg PO BID 30 days meloxicam 15 mg PO DAILY methylcellulose (laxative) (Citrucel) 500 mg PO DAILY multivitamin with folic acid 400 mcg (Daily-Bisi (with folic acid)) 1 tab PO QAM omeprazole 40 mg PO DAILY 90 days polyethylene glycol 3350 (Miralax) 17 grams PO DAILY 1 day sennosides (Natural Senna Laxative) 17.2 mg (2 x 8.6 mg) PO BEDTIME simethicone (Anti-Gas Ultra Strength) 180 mg PO QID 30 days HPI follow up HPI Details GI FU visit for this 47-year-old female for FU of chronic abdominal pain and bloating Pt was referred by Silva Daley NP in the past for a 2nd opinion IMAGING STUDIES:? 07/11/[address] SCAN SHOWED: Low attenuation structures within the adnexa bilaterally measuring 2 x 1.5 cm on the left and 1.2 cm on the rig ht. The structure on the right is a thin rim enhancement. This could represent cyst or dominant follicles. On the right, given the thin rim of enhancement, corpus luteum could be a consideration as well. Further evaluation could be obtained with pelvic ultrasound. Mild hepatomegaly. ENDOSCOPIC STUDIES:? 09/2022 CAPSULE ENDOSCOPY SHOWED: Findings: stomach appeared normal. Duodenum entered at 23 mins. Good visualization of small bowel and no masses, ulcers or bleeding points noted. Cecum reached at 3 hr 36 min Conclusion: normal study, no active bleeding seen. 08/2020 EGD? AND COLONOSCOPY SHOWED: Endoscopy Findings: STOMACH: Mild gastric erythema with a single antral erosion - biopsied. Colonoscopy Findings: No polyps were detected. Random biopsies obtained from right and colon.? Biopsies obtained from the rectum to rule out amyloidosis Moderate diverticulosis seen in the sigmoid colon Small hemorrhoids on retroflexed exam. Plan:? Patient has an appointment on 10/31/20 in the GI Clinic with Bubba Casanova M.D.. Repeat Colonoscopy interval based on path results - in 10 years if biopsies are normal. BIOPSIES SHOWED: A.? Small bowel, biopsy:? Duodenal mucosa within normal limits. B.? Stomach, antrum, biopsy:? Antral-type mucosa with moderate chronic inactive inflammation; no Helicobacter organisms seen. C.? Stomach, erosion, biopsy:? Oxyntic mucosa with moderate chronic inactive inflammation and patchy atrophy; no Helicobacter organisms seen. D.? Stomach, body, biopsy:? Oxyntic mucosa with mild chronic inactive inflammation; no atrophy seen; no Helicobacter organisms seen. E.? Colon, random right, biopsy:? Melanosis coli; otherwise colonic mucosa within normal limits. F.? Colon, random left, biopsy:? Colonic mucosa within normal limits. G.? Rectum, biopsy:? TODAY'S VISIT: Patient telehealth follow up for abdominal bloating. Patient cc: acid reflex and some constipation on and off. Denies any other GI issues. Continues to have problems despite using Amtiza for the past 2-3 months Has to use a stool softeners daily in addition. Continues to have a lot of bloating and taking simethicon which helps a little. Taking Omeprazole at bedtime and advised to switch to the morning - 20-30 min before breakfast Has been taking Lactaid products before she takes dairy - helps a little - does not take too much dairy Has been taking probiotics (bought from [employer]) for the past 2 months and is taking at night PAST VISIT: Having stomach pain and a lot of gas. Has a BM twice a day - stools can be hard intermittently Anal itching resolved and does not need to use topical cream any more Menstrual bleeding is not too bad at present Everytime I have a BM, my stomach hurts Has intermittent fecal incontinence - twice a week with leakage of loose stools when she passes gas No longer has a fissure any more. Trying to eat less and having less frequent BM. Perianal area is still irritated and not as painful. Capsule endoscopy results reviewed with the patient Patient cc: abdominal pain/bloating with a lot of gas, GERD with burning sensation. Denies any other GI issues. Feels 50% improvement in heartburn Noted significant improvement in abdominal pain after taking medication to clean out her colon Getting depressed due to GI issues Rectal pain and diagnosed with anal fissure (by Dr Kate at [facility]) and was prescribed topical cream which was compounded (? NTG) - still using it twice daily and fissure has not healed. Notes blood on the tissue when she wipes. Feels she is unable to empty herself completely. Noted diarrhea when she was taking the Linzess and Linzess was stopped by [place]. Mather good when she was taking Linzess - was having several BMs a day. Notes rectal itching when she uses the bathroom - diagnosed with eczema involving the rectum. Noted significant improvement in abdominal pain after taking medication to clean out her colon Pt is accompanied by her little granddaughter, Shirin. Has a lot of acid that comes up. Continues to have upper abdominal pain - every day instead of once a week. Pain is very strong before a BM and feels weak after she has a BM. BMs are normal - 2-3 times a day. Sometimes she feels she is not getting rid of all the stool. felt better after starting Pantoprazole and it appears to have stopped working Allergy testing was negative in the past. Continues to have abdominal pain - not as bad as in the past. Continues to have acid despite taking pantoprazole daily. Feels burning in her chest. Has not had episodes of acid coming out of her nose and mouth recently Pt states I am having heartburn, I would say some constipation. No stomach pains. I have been having a few stomach problems. Woke up with acid coming out of her nose and mouth - 3 episodes over the past 2 months. Denies eating late, had spaghetti the night before. Had dinner at 6 pm and sleeps at 9 pm. Intermittent stabbing upper abdominal pain for the past year. She is frustrated and would like to have this resolved JOSE RAFAEL. Pain radiates laterally to the back and can be upto 10/10 Had terrible pain a few weeks ago after she had steak and she stopped eating steak. Pain can last for 4-5 days.? Still has discomfort and is not as strong. She burps a lot. Intermittent loose stools and constipated twice a month Can have 6 loose to watery BMs when she has diarrhea. No blood and intermittent mucous. Can wake up with no pain and can have pain after she has a BM. Intermittent nausea and vomited a few times a week. No change in appetite or weight. Admits to heartburn and was taking TUMS. Had normal BM once a day prior to onset of symptoms. Has anemia for the past 5 yrs. Had fibroids removed 2 yrs ago which helped with menorrhagia Patient denies major cardiac or pulmonary problems, Pt admits to having sleep apnea and uses a CPAP machine Denies problems with anesthesia in the past. Denies being on chronic anticoagulation. She was using Ibuprofen a lot and advised to stop taking it by her PCP two months ago. Pt denies past hx of PUD, joint pains.? ? rash which resolved Patient denies known family history of colon polyps, colon cancer or other GI malignancies. Works as a [employer] PAST EGD/COLONOSCOPY:? Had a Colonoscopy in 2017 at [facility] - prep was not good [facility] Medical History Pruritus ani Overweight Grieving Disc degeneration, lumbar H. pylori infection Annual physical exam Normal Pap smear Chronic abdominal pain Chronic constipation DJD (degenerative joint disease), lumbar Uterine fibroid Hemorrhoids Iron deficiency Surgical History Hx of section History of esophagogastroduodenoscopy (EGD) H/O colonoscopy No pertinent past surgical history Family History Father No problems noted. 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 Diaz 12/2017 Code(s): K64.9 - Unspecified hemorrhoids Qualifiers: Hemorrhoid type: unspecified Qualified Code(s): K64.9 - Unspecified hemorrhoids (4) Iron deficiency: Code(s): E61.1 - Iron deficiency (5) Chronic abdominal pain: Code(s): R10.9 - Unspecified abdominal pain; G89.29 - Other chronic pain (6) H. pylori infection: Code(s): A04.8 - Other specified bacterial intestinal infections (7) GERD (gastroesophageal reflux disease): Code(s): K21.9 - Gastro-esophageal reflux disease without esophagitis Qualifiers: Esophagitis presence: esophagitis presence not specified Qualified Code(s): K21.9 - Gastro-esophageal reflux disease without esophagitis (8) Chronic idiopathic constipation: Code(s): K59.04 - Chronic idiopathic constipation (9) Iron deficiency anemia: Code(s): D50.9 - Iron deficiency anemia, unspecified Plan 47 YF followed in GI for intermittent abdominal pain associated with change in bowel habits with intermittent loose non-bloody diarrhea. She was using Ibuprofen a lot and advised to stop taking it by her PCP a few months ago. She has chronic iron deficiency anemia attributed to menstrual blood loss. Her symptoms can be related to PUD or small bowel ulcers given past NSAID use, IBS with diarrhea, eosinophilic gastroenteritis or FMF, angioedema. Also need to rule out adrenal insufficiency, acute intermittent porphyria - uri nary PBG during an episode of abdominal pain was normal Patient denies improvement in symptoms with dicyclomine or a Imipramine. Her symptoms are likely due to IBS as above thacker was negative except for minimally elevated homocysteine levels which can be due to Vitamin B12, B 6 or folate deficiency. She took pantoprazole for 14 days after her visit to [facility] and noted partial improvement in her symptoms. 08/2020 EGD and Colon were performed and findings as noted above She was advised to: 1.? Stop pantoprazole and take Omeprazole 20 mg twice daily. 2.? Start taking a Probitoic and an MVI daily 3.? Go on a liquid diet and take Miralax prep to cleanse her colon to see if her abdominal pain improved 4.? Pt handout on IBS from [facility] was given to the patient Feels 50% improvement in heartburn Noted significant improvement in abdominal pain after taking medication to clean out her colon Stopped Linzess due to diarrhea. Advised to continue topical ointment for Anal Fissure and increase citrucil to twice a day Patient handout on anal fissure (from [facility]) was given to the patient. Referred to surgery for evaluation for lateral sphincterotomy for non-healing anal fissure I will check a fecal calprotectin to rule out Crohn's disease. Referred to [facility] to assist with wt loss for morbid obesity 12/24/22 Advised to take Lactaid pills with milk products [place] of Amitiza for constipation 09/2022 Caspule Endoscopy (evaluation of abd pain, NATHAN, elevated CRP and borderline fecal calprotectin of 86) was normal 02/18/23 Pt advised to continue taking Amitiza and follow a FODMAP diet for 6 weeks (Handout mailed to the patient with after visit summary) FU in 3 months Orders: Orders Complete Blood Count no Diff Today D50.9 - Iron deficiency anemia, unspecified C Reactive Protein Today D50.9 - Iron deficiency anemia, unspecified Ferritin Today D50.9 - Iron deficiency anemia, unspecified Telehealth Telehealth Location of provider rendering services: practice address Location of patient: address on file Patient Identification confirmed using: Name, : Yes Telehealth method: voice only Patient verbally consented to treatment: Yes Patient verbally consented to billing insurance company: Yes Patient informed of any privacy concerns related to visit: Yes Minutes spent on Phone/Video with Pt.: 20 Coding Level of Care Code Tele Est Pt Level 4 (93660) Diagnoses Lactose intolerance in adult E73.9 Fissure in ano K60.2 Hemorrhoids, unspecified hemorrhoid type K64.9 Hemorrhoid type: unspecified Iron deficiency E61.1 Chronic abdominal pain R10.9; G89.29 H. pylori infection A04.8 Gastroesophageal reflux disease, unspecified whether esophagitis present K21.9 Esophagitis presence: esophagitis presence not specified Chronic idiopathic constipation K59.04 Iron deficiency anemia D50.9
== END 2023-02-18 14:57 | disposition home or self-care (01) ==
LOC: HO.HGI 11:56
PROVIDERS: PCP Internal Medicine; Visit Provider Internal Medicine Gastroenterology
DX: E73.9 Lactose intolerance, unspecified (principal); K60.2 Anal fissure, unspecified; K64.9 Unspecified hemorrhoids; E61.1 Iron deficiency; R10.9 Unspecified abdominal pain; G89.29 Other chronic pain; A04.8 Other specified bacterial intestinal infections; K21.9 Gastro-esophageal reflux disease without esophagitis; K59.04 Chronic idiopathic constipation; D50.9 Iron deficiency anemia, unspecified
CPT/HCPCS: 99214

== ENCOUNTER → 2023-02-18 11:56 | Outpatient (BNVA) | payer OTHER, SELFPAY | PROVIDERS: PCP Internal Medicine; Visit Provider Internal Medicine Gastroenterology ==

== ENCOUNTER 2024-02-15 07:35 | Outpatient (AMB) | payer OTHER, SELFPAY ==
[2024-02-15 07:42] VITALS: BP 120/64; PULSE 62; O2SAT 99; BMI 46.6
--- NOTE | 2024-02-15 07:42 | A.OFFPC_ITS ---
Vital Signs 02/15/24 07:42 Height 5 ft 2 in Weight 255 lb BMI 46.6 BP 120/64 Blood Pressure Location Lt brachial Position Sitting Pulse 62 Pulse Source Pulse Oximeter Pulse Oximetry (%) 99 Oxygen Delivery Method Room Air Intake Visit Reasons: Annual PE Intake Note: Pt is here today for her PE Allergies No Known Allergies Allergy (Verified 02/15/24 07:43) Medication List - Last Reconciled 02/15/24 by Daniella Morris MD ascorbate calcium (vitamin C) 500 mg PO DAILY cholecalciferol (vitamin D3) 50 mcg PO DAILY docusate sodium 100 mg PO BEDTIME ferrous sulfate 325 mg PO DAILY multivitamin with folic acid 400 mcg (Daily-Bisi (with folic acid)) 1 tab PO QAM omeprazole 40 mg PO DAILY polyethylene glycol 3350 (Miralax) 17 grams PO DAILY 1 day Tobacco use date assessed: 02/15/24 Dental Screening Dental Screen Date: 02/15/24 Did you have a dental visit in the last 12 months?: Yes Did you have a dental problem in the last 6 months where you did not have access to dental care?: No Was dental information given to patient?: Patient has dentist HPI Annual PE HPI Details Pt presents for PE. [facility] Medical History Pruritus ani Overweight Grieving Disc degeneration, lumbar H. pylori infection Annual physical exam Normal Pap smear Chronic abdominal pain Chronic constipation DJD (degenerative joint disease), lumbar Uterine fibroid Hemorrhoids Iron deficiency Surgical History Hx of section History of esophagogastroduodenoscopy (EGD) H/O colonoscopy No pertinent past surgical history Family History Father No problems noted. 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 1. Little interest or pleasure in doing things: not at all 2. Feeling down, depressed, or hopeless: not at all 3. Trouble falling or staying asleep, or sleeping too much: not at all 4. Feeling tired or having little energy: not at all 5. Poor appetite or overeating: not at all 6. Feeling bad about yourself - or that you are a failure or have let yourself or your family down: not at all 7. Trouble concentrating on things, such as reading the newspaper or watching television: several days 8. Moving or speaking so slowly that other people could have noticed. Or the opposite - being so fidgety or restless that you have been moving around a lot more than usual: not at all 9. Thoughts that you would be better off or of hurting yourself in some way: not at all Total score: 1 Depression Screening Interpretation: Negative Depression Screening Done: Yes 12577 - PHQ-9 Billing: Yes Source: Developed by Drs. Endy Rodriguez, Constanza Celeste, Porfirio Esquivel and colleagues, with an educational erwin from [employer]. Thrive Questionnaire Date Thrive assessed: 02/15/24 I am a: Patient What is your living situation today?: I have a steady place to live Within the past 12 months, did the food you bought not last and you didn't have the money to get more?: Never true Within the past 12 months, did you worry whether your food would run out before you got money to buy more?: Never true Do you have trouble paying for medicines?: No Do you have trouble getting transportation to medical appointments?: No Do you have trouble paying your heating and electricity bill?: No Do you have trouble taking care of your child, family member or friend?: No Do you have trouble with day-to-day activities such as bathing, preparing meals, shopping, managing finances, etc.?: No Are you currently unemployed and looking for a job?: No Are you interested in more education?: No Please select the resources that you would like help with: None Currently or been in a relationship where the following occur: No concerns reported THRIVE Score: 0 AUDIT C Alcohol Use Questionnaire (AUDIT-C) 1. How often do you have a drink containing alcohol?: 2-4 times a month 2. How many drinks containing alcohol do you have on a typical day when you are drinking?: 3 or 4 3. How often do you have six or more drinks on one occasion?: Less than monthly Total Score: 4 FARA-7 AMB Questionnaire FARA-7 Date FARA - 7 assessed: 02/15/24 Feeling nervous, anxious, or on edge: 0 = Not at all Not being able to stop or control worryin = Not at all Worrying too much about different things: 0 = Not at all Trouble relaxin = Not at all Being so restless that it is hard to sit still: 0 = Not at all Becoming easily annoyed or irritable: 0 = Not at all Feeling afraid as if something awful might happen: 0 = Not at all Total FARA-7 score (0-4 normal; 5-9 mild; 10-14 moderate; 15-21 severe): 0 Source: Developed by Drs. Endy Rodriguez, Constanza Celeste, Porfirio Esquivel and colleagues, with an educational erwin from [employer]. Review of Systems Const All systems reviewed & are unremarkable except as noted in HPI and below Eyes Reports no additional complaints ENT Reports no additional complaints Card Reports no additional complaints Resp Reports no additional complaints GI Reports no additional complaints Reports no additional complaints Physical exam (Primary Care) Vital Signs: Last Vital Signs Pulse 62 02/15/24 07:42 BP 120/64 02/15/24 07:42 Pulse Ox 99 02/15/24 07:42 Oxygen Delivery Method Room Air 02/15/24 07:42 BMI result Body Mass Index 46.6 Tobacco/Smoking Status: Tobacco use Status Tobacco use date assessed 02/15/24 02/15/24 07:49 Patient Tobacco Use Status Former Tobacco user 02/15/24 07:49 e-Cigarette/Vaping Use Never Used 02/15/24 07:49 PHQ-9: PHQ-9 Score PHQ-9: Total score 1 02/15/24 07:49 Depression Screening Interpretation: Negative Thrive Assessment: Date of Thrive Assessment Date Thrive assessed 02/15/24 02/15/24 07:49 Currently or been in a relationship where the following occur: No concerns reported Const General: no acute distress HENMT Head: Yes normal to inspection Ears: hearing grossly normal bilaterally General nose exam: Normal external nose present Face and sinus: Yes normal facial exam Mouth: Normal oral and palatal mucosa present Throat: Yes posterior oropharynx normal Eyes General: appearance normal, both eyes and all related structures Neck Neck: Yes no lymphadenopathy and Yes supple Resp Effort & Inspection: normal respiratory effort Auscultation: clear to auscultation bilaterally Cardio Rhythm: regular rhythm Heart sounds: S1 normal heart sound present and S2 normal heart sound present GI Inspection: Yes normal to inspection Palpation (GI): Soft to palpation Percussion: Yes normal to percussion Auscultation: normal bowel sounds Coding Level of Care Code Est Pt Prev Care 40-64y(22339) Diagnoses Iron deficiency E61.1 Annual physical exam Z00.00 Morbid obesity E66.01 Assessment & Plan Assessment & Plan (1) Iron deficiency: Comment: Due to menorrhagia Code(s): E61.1 - Iron deficiency Category: Medical Plan: Check CBC and iron, continue iron supplement (2) Annual physical exam: Code(s): Z00.00 - Encounter for general adult medical examination without abnormal f indings Category: Medical Plan: Well-balanced diet regular physical activity discussed with the patient she is up-to-date with pelvic exam colonoscopy. Mammogram will be scheduled (3) Morbid obesity: Comment: Patient has been decreasing caloric intake and exercising daily for 6 months Code(s): E66.01 - Morbid (severe) obesity due to excess calories Category: Medical Plan: To facilitate weight lost Wegovy 0.25 mg weekly for the 1st month then increase the dose as tolerates we will be started. Orders: Orders Comprehensive [place]. Panel Fast Today E61.1 - Iron deficiency, E66.01 - Morbid (severe) obesity due to excess calories, Z00.00 - Encounter for general adult medical examination without abnormal findings Complete Blood Count Auto Diff Today E61.1 - Iron deficiency, E66.01 - Morbid (severe) obesity due to excess calories, Z00.00 - Encounter for general adult medical examination without abnormal findings Lipid Panel Today E61.1 - Iron deficiency, E66.01 - Morbid (severe) obesity due to excess calories, Z00.00 - Encounter for general adult medical examination without abnormal findings IRON PROFILE Today E61.1 - Iron deficiency, E66.01 - Morbid (severe) obesity due to excess calories, Z00.00 - Encounter for general adult medical examination without abnormal findings UA w Microscopic Today E61.1 - Iron deficiency, E66.01 - Morbid (severe) obesity due to excess calories, Z00.00 - Encounter for general adult medical examination without abnormal findings MM screening mammo BI Today Z12.31 - Encounter for screening mammogram for malignant neoplasm of breast TSH reflex Free T4 Today E61.1 - Iron deficiency, E66.01 - Morbid (severe) obesity due to excess calories, Z00.00 - Encounter for general adult medical examination without abnormal findings Medications: New gentamicin 0.3% to left eye 1 drp ophthalmic (eye) Q8H 5 mL 0RF Wegovy (semaglutide (weight loss)) administer weeks 1 through 4 of therapy 0.25 mg (0.5 mL) subcut QWEEK 2 mL 0RF NS
== END 2024-02-15 08:32 | disposition home or self-care (01) ==
PROVIDERS: PCP Internal Medicine; Visit Provider Internal Medicine
DX: Z00.00 Encounter for general adult medical examination without abnormal findings (principal); E61.1 Iron deficiency; E66.01 Morbid (severe) obesity due to excess calories; Z68.42 Body mass index [BMI] 45.0-49.9, adult

== ENCOUNTER → 2024-02-15 07:35 | Outpatient (BNVA) | payer OTHER, SELFPAY | PROVIDERS: PCP Internal Medicine; Visit Provider Internal Medicine | DX: Z00.00 Encounter for general adult medical examination without abnormal findings (principal); E61.1 Iron deficiency; E66.01 Morbid (severe) obesity due to excess calories; Z68.42 Body mass index [BMI] 45.0-49.9, adult | CPT/HCPCS: 96127; 99396 ==

== ENCOUNTER 2024-02-15 08:33 | Outpatient (REF) | payer OTHER, SELFPAY ==
[2024-02-15 10:04] LABS: Appearance Urine Turbid; Color Urine Yellow; Glucose Urine UA Negative (Negative); Leukocyte Esterase Urine Negative (Negative); Nitrite Urine Negative (Negative); PH 6.5 (5.0-9.0); Specific Gravity - Urine >= 1.030 (1.005-1.025); Urine Blood Negative (Negative); Urine Ketones Negative (Negative); Urine Protein Negative (Neg-Trace)
[2024-02-15 10:07] LABS: MANUAL DIFF FLAG NO
[2024-02-15 10:19] LABS: Basophils Percent Auto 0.6 % (0-2); Eosinophils Absolute Auto 0.1 X10*3/uL (0.0-0.4); Hematocrit 32.9 % (37.0-47.0); Hemoglobin 9.6 g/dl (12.0-16.0); Imm Gran Abs Auto 0.04 X10*3/uL (0.00-0.03); Imm Gran Pct Auto 0.6 % (0.0-0.4); Lymphocytes Absolute Auto 1.7 X10*3/uL (1.2-4.9); Lymphocytes Percent Auto 25.9 % (20-40); Mean Corpuscular HGB Conc 29.2 g/dl (31.0-35.0); Mean Corpuscular Hemoglobin 19.8 pg (27.0-33.0); Mean Platelet Volume 10.4 fL (9.4-12.3); Monocytes Absolute Auto 0.5 X10*3/uL (0.1-1.2); Monocytes Percent Auto 7.8 % (2-11); Neutrophils Absolute Auto 4.2 x10*3/uL (2.0-8.3); Neutrophils Percent Auto 63.1 % (45-73); Platelet Count 430 X10*3/uL (160-400); Red Blood Count 4.84 X10*6/uL (4.20-5.50); White Blood Count 6.6 X10*3/uL (4.8-10.8)
[2024-02-15 10:21] LABS: Bacteria Urine None Seen (None Seen); Hyaline Casts Urine 0-2 /LPF (0-2); RBC Urine 0-2 /HPF (0-2); WBC Urine 0-5 /HPF (0-5)
[2024-02-15 10:59] LABS: Alanine Aminotransferase 13 U/L (0-31); Alkaline Phosphatase 78 U/L (39-117); Anion Gap 12 (12-20); Aspartate Amino Transferase 18 U/L (5-31); Bilirubin Total 0.3 mg/dL (0.0-1.0); Blood Urea Nitrogen 10 mg/dL (9-16); Calcium 8.7 mg/dL (8.4-10.2); Carbon Dioxide 23 mmol/L (22-29); Chloride 112 mmol/L (96-108); Cholesterol 206 mg/dL (<200); Estimated Glomerular Filt Rate > 60; Glucose Fasting 98 mg/dL (60-99); HDL Cholesterol 41 mg/dL (>40); Iron 17 mcg/dL (30-160); LDL Cholesterol Calculated 138 mg/dL (<100); Percent Iron Saturation 4 % (15-50); Potassium 3.8 mmol/L (3.3-5.1); Sodium 143 mmol/L (135-145); Total Iron Binding Capacity 386 mcg/dL (228-428); Total Protein 6.5 g/dL (6.5-8.0); Triglycerides 139 mg/dL (<150); Unsaturated Iron Binding 369 ug/dL
[2024-02-15 11:04] LABS: Estimated Average Glucose 108 mg/dL; Hemoglobin A1C 107.2896 umol/L; Hemoglobin A1c % 5.4 % (<6.0); Total Hemoglobin (HGBA1C) 3048.0383 umol/L
== END 2024-02-15 08:34 | disposition home or self-care (01) ==
LOC: HO.HMGCLDS 08:33
PROVIDERS: PCP Internal Medicine; Visit Provider Internal Medicine
DX: Z00.00 Encounter for general adult medical examination without abnormal findings (principal); R73.9 Hyperglycemia, unspecified; E61.1 Iron deficiency; E66.01 Morbid (severe) obesity due to excess calories
CPT/HCPCS: 36415; 80053; 80061; 81001; 83036; 83540; 84443; 85025

== ENCOUNTER 2024-03-18 08:59 | Outpatient (REF) | payer OTHER, SELFPAY ==
--- NOTE | ~2024-03-18 | MM_ITS ---
EXAMINATION: MM SCREENING DIGITAL BREAST TOMOSYNTHESIS, BILATERAL CLINICAL INFORMATION: Screening. Asymptomatic. COMPARISON: Mammography: Baseline. TECHNIQUE: Digital breast mammography with tomosynthesis is performed in both the craniocaudal and mediolateral oblique views along with computer-aided detection (CAD). FINDINGS: There are scattered areas of fibroglandular density (ACR BI-RADS breast composition Category b). There are no significant masses, abnormal calcifications, or other abnormalities. MM/MM tomosynthesis screening BI IMPRESSION: No mammographic evidence of malignancy. ASSESSMENT: BI-RADS BI-RADS 1 - Negative RECOMMENDATION: Routine annual mammography screening. 1 year F/U This examination should not preclude the clinical evaluation of a suspicious palpable abnormality. This patient's information was entered into a reminder system with a target due date for their next mammogram. Electronically signed by: Wilma Noyola DO 03/29/2024 10:39 AM [facility]
== END 2024-03-18 09:00 | disposition home or self-care (01) ==
LOC: HO.MAMMO 08:59
PROVIDERS: PCP Internal Medicine; Visit Provider Internal Medicine
DX: Z12.31 Encounter for screening mammogram for malignant neoplasm of breast (principal)
CPT/HCPCS: 77063; 77067

== ENCOUNTER → 2024-03-18 09:00 | Outpatient (BNV) | payer OTHER, SELFPAY | PROVIDERS: PCP Internal Medicine; Visit Provider Internal Medicine | DX: Z12.31 Encounter for screening mammogram for malignant neoplasm of breast (principal) | CPT/HCPCS: 77063; 77067 ==

== ENCOUNTER 2024-05-18 11:06 | Outpatient (AMB) | payer OTHER, SELFPAY ==
[2024-05-18 11:28] VITALS: BP 108/68; PULSE 70; O2SAT 96; BMI 48.1
--- NOTE | 2024-05-18 11:28 | A.OFFPC_ITS ---
Vital Signs 05/18/24 11:28 Height 5 ft 2 in Weight 263 lb BMI 48.1 BP 108/68 Blood Pressure Location Rt brachial Position Sitting Pulse 70 Pulse Source Pulse Oximeter Pulse Oximetry (%) 96 Oxygen Delivery Method Room Air Intake Visit Reasons: 3 months f/up - see comments Intake Note: Pt is here today for 3 months follow up visit. Allergies No Known Allergies Allergy (Verified 05/18/24 11:29) Medication List - Last Reconciled 05/18/24 by Daniella Morris MD ascorbate calcium (vitamin C) 500 mg PO DAILY cholecalciferol (vitamin D3) 50 mcg PO DAILY docusate sodium 100 mg PO BEDTIME ferrous sulfate 325 mg PO DAILY gentamicin 0.3% 1 drp ophthalmic (eye) Q8H multivitamin with folic acid 400 mcg (Daily-Bisi (with folic acid)) 1 tab PO QAM omeprazole 40 mg PO DAILY polyethylene glycol 3350 (Miralax) 17 grams PO DAILY 1 day Zepbound (tirzepatide (weight loss)) 2.5 mg (0.5 mL) subcut QWEEK NS Tobacco use date assessed: 05/18/24 Dental Screening Dental Screen Date: 05/18/24 Did you have a dental visit in the last 12 months?: Yes Did you have a dental problem in the last 6 months where you did not have access to dental care?: No Was dental information given to patient?: Patient has dentist HPI 3 months f/up - see comments HPI Details Pt presents for follow-up. She complains of chronic constipation and increased gas and bloating for many years. Patient has been taking MiraLax and senna with some relief. She denies nausea vomiting hematochezia melena. Patient has a history of H pylori infection and would like to be retested. She will be starting Zepbound injection for morbid obesity. She complains of chronic L knee pain worse when walking for the last 3 months. She denies injury or joint swelling. [facility] Medical History Pruritus ani Overweight Grieving Disc degeneration, lumbar H. pylori infection Annual physical exam Normal Pap smear Chronic abdominal pain Chronic constipation DJD (degenerative joint disease), lumbar Uterine fibroid Hemorrhoids Iron deficiency Surgical History Hx of section History of esophagogastroduodenoscopy (EGD) H/O colonoscopy No pertinent past surgical history Family History Father No problems noted. 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 1. Little interest or pleasure in doing things: not at all 2. Feeling down, depressed, or hopeless: several days 3. Trouble falling or staying asleep, or sleeping too much: several days 4. Feeling tired or having little energy: several days 5. Poor appetite or overeating: several days 6. Feeling bad about yourself - or that you are a failure or have let yourself or your family down: not at all 7. Trouble concentrating on things, such as reading the newspaper or watching television: not at all 8. Moving or speaking so slowly that other people could have noticed. Or the opposite - being so fidgety or restless that you have been moving around a lot more than usual: not at all 9. Thoughts that you would be better off or of hurting yourself in some way: not at all Total score: 4 Depression Screening Interpretation: Negative Depression Screening Done: Yes 96144 - PHQ-9 Billing: Yes Source: Developed by Drs. Endy Rodriguez, Constanza Celeste, Porfirio Esquivel and colleagues, with an educational erwin from [employer]. Thrive Questionnaire Date Thrive assessed: 05/18/24 I am a: Patient What is your living situation today?: I have a steady place to live Within the past 12 months, did the food you bought not last and you didn't have the money to get more?: Never true Within the past 12 months, did you worry whether your food would run out before you got money to buy more?: Never true Do you have trouble paying for medicines?: No Do you have trouble getting transportation to medical appointments?: No Do you have trouble paying your heating and electricity bill?: No Do you have trouble taking care of your child, family member or friend?: No Do you have trouble with day-to-day activities such as bathing, preparing meals, shopping, managing finances, etc.?: No Are you currently unemployed and looking for a job?: No Are you interested in more education?: No Please select the resources that you would like help with: None Currently or been in a relationship where the following occur: No concerns reported THRIVE Score: 0 AUDIT C Alcohol Use Questionnaire (AUDIT-C) 1. How often do you have a drink containing alcohol?: Monthly or less 2. How many drinks containing alcohol do you have on a typical day when you are drinking?: 3 or 4 3. How often do you have six or more drinks on one occasion?: Never Total Score: 2 FARA-7 AMB Questionnaire FARA-7 Date FARA - 7 assessed: 05/18/24 Feeling nervous, anxious, or on edge: 0 = Not at all Not being able to stop or control worryin = Not at all Worrying too much about different things: 0 = Not at all Trouble relaxin = Not at all Being so restless that it is hard to sit still: 0 = Not at all Becoming easily annoyed or irritable: 0 = Not at all Feeling afraid as if something awful might happen: 0 = Not at all Total FARA-7 score (0-4 normal; 5-9 mild; 10-14 moderate; 15-21 severe): 0 Source: Developed by Drs. Endy Rodriguez, Constanza Celeste, Porfirio Esquivel and colleagues, with an educational erwin from [employer]. FARA-7 Assessment Billing FARA-7 Assessment Tool: FARA-7 Assessment 29841 Review of Systems Const All systems reviewed & are unremarkable except as noted in HPI and below Eyes Reports no additional complaints ENT Reports no additional complaints Card Reports no additional complaints Resp Reports no additional complaints GI Reports no additional complaints Reports no additional complaints Physical exam (Primary Care) Vital Signs: Last Vital Signs Pulse 70 05/18/24 11:28 BP 108/68 05/18/24 11:28 Pulse Ox 96 05/18/24 11:28 Oxygen Delivery Method Room Air 05/18/24 11:28 BMI result Body Mass Index 48.1 Tobacco/Smoking Status: Tobacco use Status Tobacco use date assessed 05/18/24 05/18/24 11:35 Patient Tobacco Use Status Former Tobacco user 05/18/24 11:35 e-Cigarette/Vaping Use Never Used 05/18/24 11:29 PHQ-9: PHQ-9 Score PHQ-9: Total score 4 05/18/24 12:15 Depression Screening Interpretation: Negative Thrive Assessment: Date of Thrive Assessment Date Thrive assessed 05/18/24 05/18/24 11:29 Currently or been in a relationship where the following occur: No concerns reported Const General: no acute distress HENMT Head: Yes normal to inspection Face and sinus: Yes normal facial exam Eyes General: appearance normal, both eyes and all related structures Resp Effort & Inspection: normal respiratory effort Auscultation: clear to auscultation bilaterally Cardio Rhythm: regular rhythm Heart sounds: S1 normal heart sound present and S2 normal heart sound present GI Inspection: Yes normal to inspection Palpation (GI): Soft to palpation Percussion: Yes normal to percussion Auscultation: normal bowel sounds Extrem Other: Slightly decreased range of motion of left knee medial aspect tenderness, there is no joint swelling erythema or warmth Coding Level of Care Code Est Pt Level 4 (10982) Diagnoses H. pylori infection A04.8 Knee pain, left M25.562 Morbid obesity E66.01 Chronic idiopathic constipation K59.04 Additional Codes FARA-7 Assessment Billing - FARA-7 Assessment Tool: FARA-7 Assessment 41718 ([id number]) PHQ-9 - 57844 - PHQ-9 Billing: Yes ([id number]) Assessment & Plan Assessment & Plan (1) H. pylori infection: Code(s): A04.8 - Other specified bacterial intestinal infections Category: Medical Plan: Check H pylori stool antigen (2) Knee pain, left: Code(s): M25.562 - Pain in left knee Category: Medical Plan: Obtain x-ray referred to physical therapy (3) Morbid obesity: Comment: Patient has been decreasing caloric intake and exercising daily for 6 months Code(s): E66.01 - Morbid (severe) obesity due to excess calories Category: Medical Plan: Patient will start Zepbound 2.5 mg weekly none the dose will be increased depending on effectiveness and side effects, follow-up in 3 months (4) Chronic idiopathic constipation: Code(s): K59.04 - Chronic idiopathic constipation Category: Medical Plan: Continue MiraLax senna increase fiber intake and physical activity Orders: Orders H pylori Ag Stool Today A04.8 - Other specified bacterial intestinal infections XR knee LT 2V Today M25.562 - Pain in left knee PT Evaluation and Treatment Today M25.562 - Pain in left knee Referrals Cologuard Test Z12.11 - Encounter for screening for malignant neoplasm of colon, Z12.12 - Encounter for screening for malignant neoplasm of rectum Medications: New mometasone 0.1% 1 appl topical DAILY 45 grams 2RF silver sulfadiazine 1% apply a 1.5 mm thickness 1 appl topical BID 50 grams 2RF
--- OUTSIDE RECORDS SUMMARY | 2024-05-18 13:22 | XMS_ITS | Data Portability ---
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 Cerumen impaction removed bilaterally. Bilateral TMs are intact. Follow-up in 3 months for routine debridement. [email or web address] Not available 01/06/2024 13:40:15 04/12/2024 04/12/2024 48-year-old female presents for cerumen removal. Cerumen impaction removed bilaterally. Bilateral TMs are intact. Follow-up in 3 months for routine debridement. [email or web address] Not available 04/12/2024 15:37:02 Plan of Treatment Reminders Order Date Submit Date Provider Last Modified By Organization Details Last Modified Time Details Appointments Establish ed 15 2024 11:15A M JUANITO CRAVEN PA-C Not available Not available Not available Establish ed 15 2024 11:15A M JUANITO CRAVEN PA-C Not available Not available Not available Lab None recorded. Referral None recorded. Procedures None recorded. Surgeries None recorded. Imaging None recorded. Medication Orders None recorded. Patient TargetsNo targets recorded. Patient InstructionsNo instructions recorded. Reason for Referral None Reported. Results Created Date Observation Date Name Description Value Unit Range Abnormal Flag Note LastModifiedBy Organization Detail LastModifiedTime 12/15/19 24 06/12/2022 imagi ng/di agnos tic resul t No observ ation record ed. [email or web address] Not Available 21:27:40 12/15/19 24 01/05/2022 imagi ng/di agnos tic resul t No observ ation record ed. [email or web address] Not Available 21:28:07 12/15/19 24 03/25/2021 imagi ng/di agnos tic resul t No observ ation record ed. [email or web address] Not Available 21:28:32 Result Notes None recorded. Problems Name Problem SNOMED Code Status Onset Date Resolution Date Notes Provider Name and Address Organization Details Recorded Time Obstructi ve sleep apnea syndrome 92796389 Active 2014 Obstructi ve sleep apnea (adult) (pediatri c); Note: Date Diagnosed : 12/18/2014 3:10 PM (327.23) Obstruc tive sleep apnea (adult) (pediatri c); Note: Date Diagnosed : 12/18/2014 3:10 PM (G47.33) Not Available [facility] 4 02:29:44 Chronic mycotic otitis externa 772075699 Active 2016 Chronic mycotic otitis externa; Note: Date Diagnosed : 7 11:32 AM (380.15) Not Available [facility] 4 02:29:50 Bilateral disorder of Eustachia n tubes 58019708189 08258 Active 2020 Other specified disorders of Eustachia n tube, bilateral ; Note: Date Diagnosed : 1 12:24 PM (H69.83) Not Available [facility] 4 02:29:54 Disorder of tongue 22866772 Active 2021 Other diseases of tongue; Note: Date Diagnosed : 2 1:24 PM (K14.8) Not Available [facility] 4 02:29:45 Eczema NOS Active 2018 Eczema NOS; Note: Date Diagnosed : 06/20/2018 2:33 PM (L30.9) Not Available [facility] 4 02:30:09 Infective otitis externa 64776525 Active 2013 Otitis externa; infective ; Location: right CMS Risk: low risk [facility] Treatment : establish ed problem (to examiner) : stable or improved Note: Date Diagnosed : 01/26/2014 3:10 PM (380.10) Not Available [facility] 4 02:29:52 Allergic rhinitis 61846715 Active 2015 Other allergic rhinitis; Note: Date Diagnosed : 09/20/2015 9:28 AM (J30.89) Not Available [facility] 4 02:29:50 Candidal otitis externa 82574895 Active 2014 Candidal otitis externa; Note: Date Diagnosed : 04/02/2015 11:06 AM (B37.84) Not Available [facility] 4 02:30:06 Dysphagia 58233095 Active 2015 Dysphagia , unspecifi ed; Note: Date Diagnosed : 09/06/2015 11:24 AM (R13.10) Not Available [facility] 4 02:30:00 Impacted cerumen in left ear 65010917420 09211 Active 2014 Impacted cerumen, left ear; Note: Date Diagnosed : 04/02/2015 12:05 PM (H61.22) Not Available [facility] 4 02:29:48 Impacted cerumen 52894149 Active 2014 Impacted cerumen; Note: Date Diagnosed : 08/27/2014 11:07 AM (380.4) Not Available [facility] 4 02:30:09 Impacted cerumen of bilateral ears 16730735853 03419 Active 2015 Impacted cerumen, bilateral ; Note: Date Diagnosed : 09/06/2015 11:17 AM (H61.23) Not Available [facility] 4 02:29:49 Acute serous otitis media of right ear 18816658330 91056 Active 2015 Acute serous otitis media, right ear; Note: Date Diagnosed : 09/20/2015 9:28 AM (H65.01) Not Available [facility] 4 02:29:53 Nasal congestio n 44102315 Active 2018 Nasal congestio n; Note: Date Diagnosed : 12/05/2018 9:56 AM (R09.81) Not Available [facility] 4 02:30:05 Problem Notes None recorded. Procedures Surgical History Date Name Laterality Status Provider Name and Address Organization Details Recorded Time 4 Cerumen removal without microscope bilat completed JUANITO CRAVEN PA-C [address], [place], [phone], [place] - [facility] 04/12/2024 15:36:56 4 Cerumen removal without microscope bilat completed JUANITO CRAVEN PA-C [address] [facility] [address], [place], [address], [facility] - [facility] 01/06/2024 13:23:03 Imaging Results Imaging Date Name Status LastModified by Organiz ation Details LastModified Time 06/12/2022 imaging/diag nostic result completed Information not available 12/15/2023 21:27:40 01/05/2022 imaging/diag nostic result completed Information not available 12/15/2023 21:28:07 03/25/2021 imaging/diag nostic result completed Information not available 12/15/2023 21:28:32 Procedure Notes None recorded. Medical Equipment None Reported. Medications Name Sig Start Date Stop Date Status Note LastModified by Organization Details LastModified Time multivita min tablet TAKE 1 TABLET BY MOUTH EVERY MORNING active Not Available Not Available No t Available quetiapin e 25 mg tablet TAKE 1-2 TABLETS DAILY AT BEDTIME FOR INSOMNIA active Not Available Not Available No t Available cyclobenz aprine 10 mg tablet PLEASE SEE ATTACHED FOR DETAILED DIRECTIO NS active Not Available Not Available No t Available amoxicill in 500 mg capsule 01/26 completed Medicati on ID: [id number] Dur ation Value: 7 Reason: () Brand Name: amoxicil josh Send Method: E-Prescr ibed Sub s Allowed: subs OK Speci al Instruct ion: TK ONE C PO TID UNTIL GONE Med icationG enericNa me: amoxicil josh Not Available Not Available Not Available silver sulfadiaz ine 1 % topical cream APPLY TO THE PERIANAL SKIN A THIN FILM TWICE DAILY active Not Available Not Available No t Available Vitamin C 500 mg tablet TAKE 1 TABLET BY MOUTH EVERY DAY active Not Available Not Available No t Available trazodone 50 mg tablet TAKE 1-2 TABLET DAILY AT BEDTIME NEEDED FOR INSOMNIA active Not Available Not Available No t Available ofloxacin 0.3 % eye drops APPLY 2 DROPS (OPHTHAL JOSE (EYE)) 4 TIMES PER DAY FOR 7 DAYS APPLY DROPS TO AFFECTED EYE active Not Available Not Available No t Available simethico ne 180 mg capsule TAKE 1 CAPSULE ORALLY 4 TIMES A DAY FOR 30 DAYS active Not Available Not Available No t Available hydrocort isone valerate 0.2 % topical cream APPLY TO ANUS TWICE DAILY NEEDED FOR FLARES, DECREASE SYMPTOMS IMPROVE active Not Available Not Available No t Available valacyclo vir 1 gram tablet TAKE 1 TABLET BY MOUTH EVERY DAY FOR 5 DAYS PER EPISODE active Not Available Not Available No t Available clotrimaz ole-betam ethasone 1 %-0.05 % lotion 07/17 completed Medicati on ID: [id number] B rand Name: clotrima zole-bet amethaso ne Send Method: E-Prescr ibed Sub s Allowed: subs OK Speci al Instruct ion: Apply a small amount three times a day as needed for 14 days Med icationG enericNa me: clotrima zole-bet amethaso ne Not Available Not Available Not Available senna 8.6 mg tablet TAKE 2 TABLETS BY MOUTH EVERY DAY AT BEDTIME FOR CONSTIPA TION active Not Available Not Available No t Available meloxicam 15 mg tablet TAKE 1 TABLET BY MOUTH EVERY DAY active Not Available Not Available No t Available hydroquin one 4 % topical cream APPLY TO HYPERPIG MENTED AREA TWICE A DAY FOR 3 MONTHS active Not Available Not Available No t Available Medrol (Kana) 4 mg tablets in a dose pack 12/05 completed Medicati on ID: [id number] P rescribe d By Name: JULISSA Meyer nd Name: Medrol (Kana) Se nd Method: E-Prescr ibed Sub s Allowed: subs OK Speci al Instruct ion: take as instruct ed Medic ationGen ericName : Medrol (Kana) Not Available Not Available Not Available metronida zole 500 mg tablet 12/05 completed Medicati on ID: [id number] D uration Value: 7 Reason: () Brand Name: metronid azole Se nd Method: E-Prescr ibed Sub s Allowed: subs OK Speci al Instruct ion: TK 1 T PO BID FOR 7 DAYS Med icationG enericNa me: metronid azole Not Available Not Available Not Available fluocinon nohelia 0.05 % topical ointment active Not Available Not Available Not Available acyclovir 400 mg tablet TAKE 1 TABLET BY MOUTH 3 TIMES DAILY FOR 10 DAYS. active Not Available Not Available No t Available peg-elect rolyte solution 420 gram oral solution active Medicati on ID: [id number] B rand Name: peg-elec trolyte soln Sen d Method: E-Prescr ibed Sub s Allowed: subs OK Medic ationGen ericName : peg-elec trolyte soln Not Available Not Available Not Available omeprazol e 40 mg capsule,d elayed release TAKE 1 CAPSULE BY MOUTH EVERY DAY active Not Available Not Available No t Available tramadol 50 mg tablet 05/14 completed Medicati on ID: [id number] Dur ation Value: 10 Reason: () Brand Name: tramadol Send Method: E-Prescr ibed Sub s Allowed: subs OK Speci al Instruct ion: TK 1 T PO TID PRN Medi cationGe nericNam e: tramadol Not Available Not Available Not Available TobraDex 0.3 %-0.1 % eye ointment APPLY 1 SMALL AMOUNT INTO RIGHT EYE FOUR TIMES A DAY active Not Available Not Available No t Available citalopra m 20 mg tablet TAKE 1 TABLET BY MOUTH EVERY DAY IN THE EVENING FOR 30 DAYS active Not Available Not Available No t Available clindamyc in 1 % topical gel APPLY TO FACE ONCE DAILY AFTER BENZOYL PEROXIDE WASH active Not Available Not Available No t Available gentamici n 0.3 % eye drops INSTILL 1 DROP INTO THE EYE(S) EVERY 8 HOURS TO LEFT EYE active Not Available Not Available No t Available erythromy maci 5 mg/gram (0.5 %) eye ointment APPLY 1/2 INCH RIBBON TO RIGHT LOWER EYELID 4 TIMES A DAY FOR 7 DAYS active Not Available Not Available No t Available ferrous sulfate 325 mg (65 mg iron) tablet TAKE 1 TABLET BY MOUTH EVERY DAY active Not Available Not Available No t Available clotrimaz ole-betam ethasone 1 %-0.05 % topical cream Apply 1 a small amount twice a day 2022 active Medicati on ID: [id number] D uration Value: 14 Brand Name: chela jimenez ne Send Method: E-Prescr ibed Sub s Allowed: subs OK Speci al Instruct ion: Apply with fingerti p to bilatera l external ears x 14 days, then as needed M edicaticlaudette nGeneric Name: millyriblayne watt-artem srivastavao ne Not Available Not Available Not Available clotrimaz ole 1 % topical solution 11/14 completed Medicati on ID: [id number] D uration Value: 14 Brand Name: clotriblayne watt Sen d Method: E-Prescr ibed Sub s Allowed: subs OK Speci al Instruct ion: 5 drops to the affected ear BID x 2 weeks Me dication GenericN galilea: clotrima zole Not Available Not Available Not Available fluoxetin e 10 mg capsule TAKE 1 CAPSULE BY MOUTH EVERY DAY IN THE MORNING active Not Available Not Available No t Available docusate sodium 100 mg capsule TAKE 1 CAPSULE BY MOUTH EVERYDAY AT BEDTIME active Not Available Not Available No t Available gabapenti n 300 mg capsule 10/16 completed Medicati on ID: [id number] D uration Value: 30 Brand Name: gabapent in Send Method: E-Prescr ibed Sub s Allowed: subs OK Speci al Instruct ion: TK 1 C PO BID Medi cationGe nericNam e: gabapent in Not Available Not Available Not Available hydroxyzi ne HCl 25 mg tablet active Medicati on ID: [id number] B rand Name: hydroxyz ine HCl Send Method: E-Prescr ibed Sub s Allowed: subs OK Medic ationGen ericName : hydroxyz ine HCl Not Available Not Available Not Available halobetas ol propionat e 0.05 % topical cream active Medicati on ID: [id number] B rand Name: halobeta abigail propiona te Send Method: E-Prescr ibed Sub s Allowed: subs OK Medic ationGen ericName : halobeta abigail propiona te Not Available Not Available Not Available mometason e 0.1 % topical ointment APPLY A THIN FILM TWICE DAILY active Not Available Not Available No t Available azelastin e 137 mcg (0.1 %) nasal spray SPRAY 2 SPRAYS INTO EACH NOSTRIL TWICE A DAY active Not Available Not Available No t Available hydrocort isone 2.5 % topical ointment APPLY TO EYELIDS AND FACE TWICE DAILY NEEDED FOR FLARES, DECREASE SYMPTOMS IMPROVE active Not Available Not Available No t Available fluoxetin e 20 mg capsule TAKE 2 CAPSULES BY MOUTH EVERY DAY IN THE MORNING active Not Available Not Available No t Available naproxen 500 mg tablet TAKE 1 TABLET (ORAL) 2 TIMES PER DAY FOR 2 WEEKS active Not Available Not Available No t Available tobramyci n 0.3 %-dexamet hasone 0.1 % eye drops,emigdio pension PUT 1 DROP IN RIGHT EYE 4 TIMES A DAY active Not Available Not Available No t Available neomycin- polymyxin -hydrocor t 3.5 mg-10,000 unit/mL-1 % ear drops,emigdio p 4 drop 02/09 completed Medicati on ID: [id number] Dur ation Value: 10 Prescri bed By Name: JULISSA Meyer nd Name: neomycin -polymyx in-HC Se nd Method: E-Prescr ibed Sub s Allowed: subs OK Medic ationGen ericName : neomycin -polymyx in-HC Not Available Not Available Not Available cyclobenz aprine 5 mg tablet TAKE 1 TABLET BY MOUTH THREE TIMES A DAY NEEDED FOR MUSCLE SPASM FOR 5 DAYS active Not Available Not Available No t Available Zylet 0.3 %-0.5 % eye drops,emigdio pension INSTILL 1 DROP INTO BOTH EYES 4 TIMES A DAY active Not Available Not Available No t Available sodium fluoride 1.1 %-potassi um nitrate 5 % dental paste USE 2-3X/AIDA LY, SPIT OUT EXCESS. DO NOT RINSE WITH WATER. NO EATING OR DRINKING FOR 45 MIN AFTER active Not Available Not Available No t Available DermOtic Oil 0.01 % ear drops Apply 06/09 completed Medicati on ID: [id number] D uration Value: 30 Brand Name: DermOtic Oil Send Method: E-Prescr ibed Sub s Allowed: subs OK Speci al Instruct ion: Apply 4 drops to each ear 2 times a week and as needed M josemanuel Jorgensen Name: DermOtic Oil Not Available Not Available Not Available Flovent Diskus 50 mcg/actua tion powder for inhalatio n 04/02 completed Medicati on ID: [id number] Bra nd Name: Flonase Send Method: E-Prescr ibed Sub s Allowed: subs OK Speci al Instruct ion: 2 spray each nostril BID Medi cationGe nericNam e: Flonase Not Available Not Available Not Available omeprazol e 20 mg tablet,de layed release 1 tablet by mouth 05/14 completed Medicati on ID: [id number] Katarina william d By Name: JULISSA Meyer nd Name: omeprazo le Send Method: E-Prescr ibed Sub s Allowed: subs OK Speci al Instruct ion: Take 1 tablet by mouth every day before breakfas t Medica tionGene ricName: omeprazo le Not Available Not Available Not Available Vitamin D3 50 mcg (2,000 unit) tablet TAKE 1 TABLET BY MOUTH EVERY DAY active Not Available Not Available No t Available Vitamin D3 50 mcg (2,000 unit) capsule TAKE 1 CAPSULE BY MOUTH EVERY DAY DIRECTED FOR 90 DAYS active Not Available Not Available No t Available Flonase Allergy Relief 50 mcg/actua tion nasal spray,emigdio pension [place] 2 spray into both nostrils once a day 2023 active Medicati on ID: [id number] D uration Value: 30 Brand Name: Flonase Allergy Relief S end Method: E-Prescr ibed Sub s Allowed: subs OK Medic ationGen ericName : Flonase Allergy Relief Not Available Not Available Not Available Wegovy 0.25 mg/0.5 mL subcutane ous pen injector active Not Available Not Available Not Available Daily-Vit e (with folic acid) 400 mcg tablet active Medicati on ID: [id number] B rand Name: Daily-Vi te (with folic acid) Se nd Method: E-Prescr ibed Sub s Allowed: subs OK Medic ationGen ericName : Daily-Vi te (with folic acid) Not Available Not Available Not Available Vitals Date Recorded Body height Body mass index (BMI) Body weight Provider Name and Address Organization Details Last Updated DateTime 01/06/2024 167.64 cm 40.4 kg/m2 519699.09 g Reed Aguilar [place] - [facility] 01/06/2024 13:21:36 Date Recorded Body height Body mass index (BMI) Body weight Provider Name and Address Organization Details Last Updated DateTime 04/12/2024 167.64 cm 40.4 kg/m2 621554.09 g Dee Dee Moncada [place] - [facility] 04/12/2024 15:00:53 Social History None recorded. Functional Status None recorded. Mental Status None recorded. Family History Nothing Reported. Medical History No medical history recorded. Gynecological HistoryNo gynecological history recorded. Obstetrics History GPAL:G 0 P 0 0 0 0 Past Encounters Encounter ID Performer Location Encounter Start Date Encounter Closed Date Diagnosis/Indication Diagnosis SNOMED-CT Code Diagnosis ICD10 Code Diagnosis Note [id number] HELLEN PENA MD [facility] [address] [address] 01/06/2024 13:16:26 01/06/2024 13:46:28 Impacted cerumen of bilateral ears 2900664591 363266 H61.23 [id number] HELLEN PENA MD [facility] [address] [address] 04/12/2024 14:44:04 04/12/2024 15:40:11 Impacted cerumen of bilateral ears 0543157908 210907 H61.23 Health Concerns Section Related Observation LastModified by Organization Detai ls LastModified Time None Recorded Concern Status LastModified by Organization Details LastModified Time None Recorded Advance Directives Directive None Recorded Payers Encounter Date Sequence Insurance Name Policy Number Policy Dueñas Covered Member ID Dueñas Member ID Guarantor Name 01/06/2024 1 [facility] (MEDICAID O) HARIS James [id number] Adiel James 04/12/2024 1 [facility] PLAN (MEDICAID HMO) HARIS James [id number] Adiel James Notes Date Note Type Note Provider Name and Address Organization Details Recorded Time 01/06/2024 text/html 48-year-old lory hong presents for routine ear cleaning. No concerns today. History of eczema and uses DermOtic, Lotrisone cream, clotrimazole drops as needed. HELLEN PENA MD [address] [facility],[address] [address], [place], [address], [place] - [facility] 01/07/2024 08:59:54 04/12/2024 text/html 48-year-old lory hong presents for routine ear cleaning. No concerns today. History of eczema and uses DermOtic, Lotrisone cream, clotrimazole drops as needed. HELLEN PENA MD [address] [facility],[address] [address], [place], [address], [place] - [facility] 04/13/2024 10:29:22 OBGyn Episode No OBEpisode recorded.
== END 2024-05-18 12:41 | disposition home or self-care (01) ==
PROVIDERS: PCP Internal Medicine; Visit Provider Internal Medicine
DX: M25.562 Pain in left knee (principal); E66.01 Morbid (severe) obesity due to excess calories; Z68.42 Body mass index [BMI] 45.0-49.9, adult; A04.8 Other specified bacterial intestinal infections; K59.04 Chronic idiopathic constipation

== ENCOUNTER → 2024-05-18 11:06 | Outpatient (BNVA) | payer OTHER, SELFPAY | PROVIDERS: PCP Internal Medicine; Visit Provider Internal Medicine | DX: A04.8 Other specified bacterial intestinal infections (principal); M25.562 Pain in left knee; E66.01 Morbid (severe) obesity due to excess calories; K59.04 Chronic idiopathic constipation | CPT/HCPCS: 96127; 99212 ==

== ENCOUNTER 2024-05-20 10:33 | Outpatient (REF) | payer OTHER, SELFPAY ==
--- OUTSIDE RECORDS SUMMARY | 2024-05-20 12:01 | XMS_ITS | Data Portability ---
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 Cerumen impaction removed bilaterally. Bilateral TMs are intact. Follow-up in 3 months for routine debridement. [email or web address] Not available 01/06/2024 13:40:15 04/12/2024 04/12/2024 48-year-old female presents for cerumen removal. Cerumen impaction removed bilaterally. Bilateral TMs are intact. Follow-up in 3 months for routine debridement. [email or web address] Not available 04/12/2024 15:37:02 Plan of Treatment [...] Recorded Time Obstructi ve sleep apnea syndrome 36328094 Active 2014 Obstructi ve sleep apnea (adult) (pediatri c); Note: Date Diagnosed : 12/18/2014 3:10 PM (327.23) Obstruc tive sleep apnea (adult) (pediatri c); Note: Date Diagnosed : 12/18/2014 3:10 PM (G47.33) Not Available [facility] 4 02:29:44 Chronic mycotic otitis externa 935351680 Active 2016 Chronic mycotic otitis externa; Note: Date Diagnosed : 7 11:32 AM (380.15) Not Available [facility] 4 02:29:50 Bilateral disorder of Eustachia n tubes 50076693237 79571 Active 2020 Other specified disorders of Eustachia n tube, bilateral ; Note: Date Diagnosed : 1 12:24 PM (H69.83) Not Available [facility] 4 02:29:54 Disorder of tongue 00533759 Active 2021 Other diseases of tongue; Note: Date Diagnosed : 2 1:24 PM (K14.8) Not Available [facility] 4 02:29:45 Eczema NOS Active 2018 Eczema NOS; Note: Date Diagnosed : 06/20/2018 2:33 PM (L30.9) Not Available [facility] 4 02:30:09 Infective otitis externa 18008732 Active 2013 Otitis externa; infective ; Location: right CMS Risk: low risk [facility] Treatment : establish ed problem (to examiner) : stable or improved Note: Date Diagnosed : 01/26/2014 3:10 PM (380.10) Not Available [facility] 4 02:29:52 Allergic rhinitis 08050619 Active 2015 Other allergic rhinitis; Note: Date Diagnosed : 09/20/2015 9:28 AM (J30.89) Not Available [facility] 4 02:29:50 Candidal otitis externa 47116592 Active 2014 Candidal otitis externa; Note: Date Diagnosed : 04/02/2015 11:06 AM (B37.84) Not Available [facility] 4 02:30:06 Dysphagia 12873172 Active 2015 Dysphagia , unspecifi ed; Note: Date Diagnosed : 09/06/2015 11:24 AM (R13.10) Not Available [facility] 4 02:30:00 Impacted cerumen in left ear 58533304262 09199 Active 2014 Impacted cerumen, left ear; Note: Date Diagnosed : 04/02/2015 12:05 PM (H61.22) Not Available [facility] 4 02:29:48 Impacted cerumen 20400783 Active 2014 Impacted cerumen; Note: Date Diagnosed : 08/27/2014 11:07 AM (380.4) Not Available [facility] 4 02:30:09 Impacted cerumen of bilateral ears 15368514879 97673 Active 2015 Impacted cerumen, bilateral ; Note: Date Diagnosed : 09/06/2015 11:17 AM (H61.23) Not Available [facility] 4 02:29:49 Acute serous otitis media of right ear 01148751207 05679 Active 2015 Acute serous otitis media, right ear; Note: Date Diagnosed : 09/20/2015 9:28 AM (H65.01) Not Available [facility] 4 02:29:53 Nasal congestio n 41033946 Active 2018 Nasal congestio n; Note: Date Diagnosed : 12/05/2018 9:56 AM (R09.81) Not Available [facility] 4 02:30:05 Problem Notes None recorded. Procedures Surgical History Date Name Laterality Status Provider Name and Address Organization Details Recorded Time 4 Cerumen removal without microscope bilat completed JUANITO CRAVEN PA-C [address], [place], [address], [place] - [facility] 04/12/2024 15:36:56 4 Cerumen removal without microscope bilat completed JUANITO CRAVEN PA-C [address] [facility] [address], [place], [address], [facility] - [facility] 01/06/2024 13:23:03 Imaging Results Imaging Date Name [...] % lotion 07/17 completed Medicati on ID: [id number] B rand Name: clotrima zole-bet amethaso ne [...] dose pack 12/05 completed Medicati on ID: [id number] P rescribe d By Name: JULISSA Meyer nd Name: Medrol (Kana) Se nd Method: E-Prescr ibed Sub s Allowed: subs OK Speci al Instruct ion: take as instruct ed Medic ationGen ericName : Medrol (Kana) Not Available Not Available Not Available metronida zole 500 mg tablet 12/05 completed Medicati on ID: [id number] D uration Value: 7 Reason: () Brand [...] gram oral solution active Medicati on ID: [id number] B rand Name: peg-elec trolyte soln Sen [...] a day 2022 active Medicati on ID: [id number] D uration Value: 14 Brand Name: chela jimenez ne Send Method: E-Prescr ibed Sub s Allowed: subs OK Speci al Instruct ion: Apply with fingerti p to bilatera l external ears x 14 days, then as needed M edicaticlaudette nGeneric Name: millyriblayne watt-artem srivastavao ne Not Available Not Available Not Available clotrimaz ole 1 % topical solution 11/14 completed Medicati on ID: [id number] D uration Value: 14 Brand Name: clotriblayne [...] mg capsule 10/16 completed Medicati on ID: [id number] D uration Value: 30 Brand Name: gabapent in Send Method: E-Prescr ibed Sub s Allowed: subs OK Speci al Instruct ion: TK 1 C PO BID Medi cationGe nericNam e: gabapent in Not Available Not Available Not Available hydroxyzi ne HCl 25 mg tablet active Medicati on ID: [id number] B rand Name: hydroxyz ine HCl Send Method: E-Prescr ibed Sub s Allowed: subs OK Medic ationGen ericName : hydroxyz ine HCl Not Available Not Available Not Available halobetas ol propionat e 0.05 % topical cream active Medicati on ID: [id number] B rand Name: halobeta abigail propiona te [...] drops Apply 06/09 completed Medicati on ID: [id number] D uration Value: 30 Brand Name: DermOtic [...] by mouth 05/14 completed Medicati on ID: [id number] Katarina william d By Name: JULISSA Meyer [...] Relief 50 mcg/actua tion nasal spray,emigdio pension [place] 2 spray into both nostrils once a day 2023 active Medicati on ID: [id number] D uration Value: 30 Brand Name: Flonase Allergy Relief S end Method: E-Prescr ibed Sub s Allowed: subs OK Medic ationGen ericName : Flonase Allergy Relief Not Available Not Available Not Available Wegovy 0.25 mg/0.5 mL subcutane ous pen injector active Not Available Not Available Not Available Daily-Vit e (with folic acid) 400 mcg tablet active Medicati on ID: [id number] B rand Name: Daily-Vi te (with folic acid) Se nd Method: E-Prescr ibed Sub s Allowed: subs OK Medic ationGen ericName : Daily-Vi te (with folic acid) Not Available Not Available Not Available Vitals Date Recorded Body height Body mass index (BMI) Body weight Provider Name and Address Organization Details Last Updated DateTime 01/06/2024 167.64 cm 40.4 kg/m2 767022.09 g Reed Aguilar [place] - [facility] 01/06/2024 13:21:36 Date Recorded Body height Body mass index (BMI) Body weight Provider Name and Address Organization Details Last Updated DateTime 04/12/2024 167.64 cm 40.4 kg/m2 193884.09 g Dee Dee Moncada [place] - [facility] 04/12/2024 15:00:53 Social History None recorded. Functional Status None recorded. Mental Status None recorded. Family History Nothing Reported. Medical History No medical history recorded. Gynecological HistoryNo gynecological history recorded. Obstetrics History GPAL:G 0 P 0 0 0 0 Past Encounters Encounter ID Performer Location Encounter Start Date Encounter Closed Date Diagnosis/Indication Diagnosis SNOMED-CT Code Diagnosis ICD10 Code Diagnosis Note [id number] HELLEN PENA MD [facility] [address] [address] 01/06/2024 13:16:26 01/06/2024 13:46:28 Impacted cerumen of bilateral ears [id number] 448572 H61.23 [id number] HELLEN PENA MD [facility] [address] [address] 04/12/2024 14:44:04 04/12/2024 15:40:11 Impacted cerumen of bilateral ears 0865442655 635580 H61.23 Health Concerns Section Related Observation LastModified by Organization Detai ls LastModified Time None Recorded Concern Status LastModified by Organization Details LastModified Time None Recorded Advance Directives Directive None Recorded Payers Encounter Date Sequence Insurance Name Policy Number Policy Dueñas Covered Member ID Dueñas Member ID Guarantor Name 01/06/2024 1 [facility] PL[facility] (MEDICAID O) HARIS James [id number] Adiel James 04/12/2024 1 [facility] PLAN (MEDICAID HMO) HARIS James [id number] Adiel James Notes Date Note Type Note Provider Name and Address Organization Details Recorded Time 01/06/2024 text/html 48-year-old lory hong presents for routine ear cleaning. No concerns today. History of eczema and uses DermOtic, Lotrisone cream, clotrimazole drops as needed. HELLEN PENA MD [address] [facility],[place] [address], [place], [address], [place] - [facility] 01/07/2024 08:59:54 04/12/2024 text/html 48-year-old lory hong presents for routine ear cleaning. No concerns today. History of eczema and uses DermOtic, Lotrisone cream, clotrimazole drops as needed. HELLEN PENA MD [address] [facility],[place] [address], [place], [address], [place] - [facility] 04/13/2024 10:29:22 OBGyn Episode No OBEpisode recorded.
== END 2024-05-20 10:34 | disposition home or self-care (01) ==
LOC: HO.HMGCLNP 10:33
PROVIDERS: PCP Internal Medicine; Visit Provider Internal Medicine
DX: Z13.89 Encounter for screening for other disorder (principal)
CPT/HCPCS: 87338

== ENCOUNTER 2024-05-20 12:00 | Outpatient (REF) | payer OTHER, SELFPAY ==
--- NOTE | ~2024-05-20 | XR_ITS ---
EXAMINATION: XR KNEE 1-2 VIEWS LEFT HISTORY: M25.562 - Pain in left knee COMPARISON: There are no prior studies available for comparison. FINDINGS: AP and lateral views of the left knee are submitted. Osseous mineralization is normal. There is no fracture or dislocation. The joint spaces are preserved. A soft tissue calcification adjacent to the medial femoral condyle may be ligamentous in nature. There is a trace joint effusion. XR/XR knee LT 2V IMPRESSION: Trace joint effusion. Possible ligamentous calcification adjacent to the medial femoral condyle. Electronically signed by: Endy Herrera MD 05/23/2024 08:39 AM EST
[2024-05-20 13:05] LABS: MANUAL DIFF FLAG NO
[2024-05-20 13:10] LABS: Basophils Percent Auto 0.4 % (0-2); Eosinophils Absolute Auto 0.2 X10*3/uL (0.0-0.4); Eosinophils Percent Auto 2.4 % (0-4); Hematocrit 30.6 % (37.0-47.0); Hemoglobin 9.2 g/dl (12.0-16.0); Imm Gran Abs Auto 0.04 X10*3/uL (0.00-0.03); Imm Gran Pct Auto 0.6 % (0.0-0.4); Lymphocytes Absolute Auto 1.7 X10*3/uL (1.2-4.9); Lymphocytes Percent Auto 24.9 % (20-40); Mean Corpuscular HGB Conc 30.1 g/dl (31.0-35.0); Mean Corpuscular Hemoglobin 19.5 pg (27.0-33.0); Mean Platelet Volume 10.1 fL (9.4-12.3); Monocytes Absolute Auto 0.6 X10*3/uL (0.1-1.2); Monocytes Percent Auto 7.9 % (2-11); Neutrophils Absolute Auto 4.4 x10*3/uL (2.0-8.3); Neutrophils Percent Auto 63.8 % (45-73); Platelet Count 369 X10*3/uL (160-400); Red Blood Count 4.72 X10*6/uL (4.20-5.50); Red Cell Distribution Width 18.7 % (11.0-16.0)
[2024-05-20 13:14] LABS: Mean Corpuscular Volume 64.8 fL (80.0-98.0)
[2024-05-20 13:33] LABS: Cholesterol 183 mg/dL (<200); HDL Cholesterol 38 mg/dL (>40); Iron 41 mcg/dL (30-160); LDL Cholesterol Calculated 121 mg/dL (<100); Percent Iron Saturation 11 % (15-50); Total Iron Binding Capacity 386 mcg/dL (228-428); Triglycerides 122 mg/dL (<150); Unsaturated Iron Binding 345 ug/dL
== END 2024-05-20 12:01 | disposition home or self-care (01) ==
LOC: HO.HMGCX 12:00
PROVIDERS: PCP Internal Medicine; Visit Provider Internal Medicine
DX: M25.562 Pain in left knee (principal); A04.8 Other specified bacterial intestinal infections; E61.1 Iron deficiency; E66.01 Morbid (severe) obesity due to excess calories
CPT/HCPCS: 36415; 73560; 80061; 83540; 84443; 85025; 87338

== ENCOUNTER → 2024-05-20 12:04 | Outpatient (BNV) | payer OTHER, SELFPAY | PROVIDERS: PCP Internal Medicine; Visit Provider Radiology Diagnostic Radiology | DX: M25.562 Pain in left knee (principal) | CPT/HCPCS: 73560 ==

== ENCOUNTER 2024-05-25 11:10 | Outpatient (AMB) | payer OTHER, SELFPAY ==
--- NOTE | 2024-05-25 11:21 | A.OFFVIS_ITS ---
Vital Signs 05/25/24 11:26 Height 5 ft 2 in Weight 263 lb BMI 48.1 BP 110/56 L Blood Pressure Location Lt brachial Position Sitting Pulse 78 Pulse Oximetry (%) 96 Intake Visit Reasons: pt req appointment Intake Note: Patient follow up she request appt, amanda was 02/18/2023 for Chronic abdominal pain. Patient cc: abdominal pain with bloating, acid reflex with burning sensation, between diarrhea and constipation. Denies any other GI issues. 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 Accompanied by: Self / Same As Patient Allergies No Known Allergies Allergy (Verified 05/25/24 11:21) Medication List - Last Reconciled 05/25/24 by Bubba Casanova MD ascorbate calcium (vitamin C) 500 mg PO DAILY cholecalciferol (vitamin D3) 50 mcg PO DAILY docusate sodium 100 mg PO BEDTIME ferrous sulfate 325 mg PO DAILY gentamicin 0.3% 1 drp ophthalmic (eye) Q8H mometasone 0.1% 1 appl topical DAILY multivitamin with folic acid 400 mcg (Daily-Bisi (with folic acid)) 1 tab PO QAM omeprazole 40 mg PO DAILY polyethylene glycol 3350 (Miralax) 17 grams PO DAILY 1 day silver sulfadiazine 1% 1 appl topical BID Zepbound (tirzepatide (weight loss)) 2.5 mg (0.5 mL) subcut QWEEK NS HPI HPI pt req appointment: Details: GI FU visit for this 48-year-old female for FU of chronic abdominal pain and bloating Pt was referred by Silva Daley NP in the past for a 2nd opinion TODAY'S VISIT: Patient follow up she request appt, amanda was 02/18/2023 for Chronic abdominal pain. Patient cc: abdominal pain with bloating, acid reflex with burning sensation, between diarrhea and constipation. I have a lot of gas and constipation - takes Senna and Miralax Avoids dairy. Tried the FODMAP diet and felt a little bit better. Burps a lot Stomach bothers her a lot Has a BM 2 times a week. Gas smells awful - denies recent antibiotic use Found the Linzess and used it twice and helped with constipation Tried Amitiza in the past and it didnt work and she stopped taking it. PAST VISITS: Continues to have problems despite using Amtiza for the past 2-3 months Has to use a stool softeners daily in addition. Continues to have a lot of bloating and taking simethicon which helps a little. Taking Omeprazole at bedtime and advised to switch to the morning - 20-30 min before breakfast Has been taking Lactaid products before she takes dairy - helps a little - does not take too much dairy Has been taking probiotics (bought from [employer]) for the past 2 months and is taking at night PAST VISIT: Having stomach pain and a lot of gas. Has a BM twice a day - stools can be hard intermittently Anal itching resolved and does not need to use topical cream any more Menstrual bleeding is not too bad at present Everytime I have a BM, my stomach hurts Has intermittent fecal incontinence - twice a week with leakage of loose stools when she passes gas No longer has a fissure any more. Trying to eat less and having less frequent BM. Perianal area is still irritated and not as painful. Capsule endoscopy results reviewed with the patient Patient cc: abdominal pain/bloating with a lot of gas, GERD with burning sensation. Denies any other GI issues. Feels 50% improvement in heartburn Noted significant improvement in abdominal pain after taking medication to clean out her colon Getting depressed due to GI issues Rectal pain and [place] with [place] [facility] [place] and was prescribed topical cream which was compounded (? NTG) - still using it twice daily and fissure has not healed. Notes blood on the tissue when she wipes. Feels she is unable to empty herself completely. Noted diarrhea when she was taking the Linzess and Linzess was stopped by [place]. [place] good when she was taking Linzess - was having several BMs a day. Notes rectal itching when she uses the bathroom - diagnosed with eczema involving the rectum. Noted significant improvement in abdominal pain after taking medication to clean out her colon Pt is accompanied by her little granddaughter, Shirin. Has a lot of acid that comes up. Continues to have upper abdominal pain - every day instead of once a week. Pain is very strong before a BM and feels weak after she has a BM. BMs are normal - 2-3 times a day. Sometimes she feels she is not getting rid of all the stool. felt better after starting Pantoprazole and it appears to have stopped working Allergy testing was negative in the past. Continues to have abdominal pain - not as bad as in the past. Continues to have acid despite taking pantoprazole daily. Feels burning in her chest. Has not had episodes of acid coming out of her nose and mouth recently Pt states I am having heartburn, I would say some constipation. No stomach pains. I have been having a few stomach problems. Woke up with acid coming out of her nose and mouth - 3 episodes over the past 2 months. Denies eating late, had spaghetti the night before. Had dinner at 6 pm and sleeps at 9 pm. Intermittent stabbing upper abdominal pain for the past year. She is frustrated and would like to have this resolved JOSE RAFAEL. Pain radiates laterally to the back and can be upto 10/10 Had terrible pain a few weeks ago after she had steak and she stopped eating steak. Pain can last for 4-5 days.? Still has discomfort and is not as strong. She burps a lot. Intermittent loose stools and constipated twice a month Can have 6 loose to watery BMs when she has diarrhea. No blood and intermittent mucous. Can wake up with no pain and can have pain after she has a BM. Intermittent nausea and vomited a few times a week. No change in appetite or weight. Admits to heartburn and was taking TUMS. Had normal BM once a day prior to onset of symptoms. Has anemia for the past 5 yrs. Had fibroids removed 2 yrs ago which helped with menorrhagia Patient denies major cardiac or pulmonary problems, Pt admits to having sleep apnea and uses a CPAP machine Denies problems with anesthesia in the past. Denies being on chronic anticoagulation. She was using Ibuprofen a lot and advised to stop taking it by her PCP two months ago. Pt denies past hx of PUD, joint pains.? ? rash which resolved Patient denies known family history of colon polyps, colon cancer or other GI malignancies. 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 Had a Colonoscopy in 2017 at [facility] - prep was not good IMAGING STUDIES:? 07/11/[address] SCAN SHOWED: Low attenuation structures within the adnexa bilaterally measuring 2 x 1.5 cm on the left and 1.2 cm on the right. The structure on the rightis a thin rim enhancement. This could represent cyst or dominant follicles. On the right, given the thin rim of enhancement, corpus luteum could be a consideration as well. Further evaluation could be obtained with pelvic ultrasound. Mild hepatomegaly. ENDOSCOPIC STUDIES:? 09/2022 CAPSULE ENDOSCOPY SHOWED: Findings: stomach appeared normal. Duodenum entered at 23 mins. Good visualization of small bowel and no masses, ulcers or bleeding points noted. Cecum reached at 3 hr 36 min Conclusion: normal study, no active bleeding seen. 08/2020 EGD? AND COLONOSCOPY SHOWED:Endoscopy Findings: STOMACH: Mild gastric erythema with a single antral erosion - biopsied. Colonoscopy Findings: No polyps were detected. Random biopsies obtained from right and colon.? Biopsies obtained from the rectum to rule out amyloidosis Moderate diverticulosis seen in the sigmoid colon Small hemorrhoids on retroflexed exam. Plan:? Patient has an appointment on 10/31/20 in the GI Clinic with Bubba Casanova M.D.. Repeat Colonoscopy interval based on path results - in 10 years if biopsies are normal. BIOPSIES SHOWED: A.? Small bowel, biopsy:? Duodenal mucosa within normal limits. B.? Stomach, antrum, biopsy:? Antral-type mucosa with moderate chronic inactive inflammation; no Helicobacter organisms seen. C.? Stomach, erosion, biopsy:? Oxyntic mucosa with moderate chronic inactive inflammation and patchy atrophy; no Helicobacter organisms seen. D.? Stomach, body, biopsy:? Oxyntic mucosa with mild chronic inactive in flammation; no atrophy seen; no Helicobacter organisms seen. E.? Colon, random right, biopsy:? Melanosis coli; otherwise colonic mucosa within normal limits. F.? Colon, random left, biopsy:? Colonic mucosa within normal limits. G.? Rectum, biopsy:? PFSH Medical History Pruritus ani Overweight Grieving Disc degeneration, lumbar H. pylori infection Annual physical exam Normal Pap smear Chronic abdominal pain Chronic constipation DJD (degenerative joint disease), lumbar Uterine fibroid Hemorrhoids Iron deficiency Surgical History Hx of section History of esophagogastroduodenoscopy (EGD) H/O colonoscopy No pertinent past surgical history Family History Father No problems noted. 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 Cognitive needs: No Hearing needs: No Vision needs: Yes Review of Systems Const Denies fever(s), Denies headache(s) and Denies weight loss Eyes Denies eye discharge and Denies irritation ENT Reports Normal hearing present, Denies dysphagia, Denies dizziness and Denies headache(s) Card Denies chest pain, Denies leg edema and Denies dyspnea on exertion Resp Denies cough, Denies dyspnea on exertion and Denies wheezing GI Reports abdominal pain, Reports bloating, Denies change in bowel habits, Reports constipation, Denies dysphagia, Reports heartburn and Reports diarrhea Denies difficulty voiding and Denies dysuria Musc Denies back pain and Denies arthralgias Skin/Breast Denies pruritus, Denies rash and Denies jaundice Neuro Reports Normal hearing present, Denies Abnormal speech present, Denies dizziness, Denies headache(s) and Denies seizure-like activity Psych Denies anxiety, Denies depression and Denies panic attacks Endo Denies cold intolerance, Denies flushing and Denies heat intolerance Deny/Lymph Denies easy bleeding and Denies easy bruising Aller/Immun Denies wheezing Physical Exam Vital Signs: Last Vital Signs Pulse 78 05/25/24 11:26 BP 110/56 L 05/25/24 11:26 Pulse Ox 96 05/25/24 11:26 BMI result Body Mass Index 48.1 Const General: healthy appearing and no acute distress Nutritional Appearance: obese (Morbidly obese) Orientation/consciousness: patient oriented x3 Limitations: no limitations HEENT Head: Yes normal to inspection Ears: hearing grossly normal bilaterally Eyes Sclerae: sclerae normal Pupils: Equal, round and reactive pupils present Neck Neck: Yes normal visual inspection Chest Chest palpation & inspection: normal inspection of the chest Resp Effort & Inspection: normal respiratory effort Auscultation: clear to auscultation bilaterally Cardio Palpation: normal PMI Rate: regular rate Rhythm: regular rhythm Heart sounds: S1 normal heart sound present, S2 normal heart sound present and n o murmurs GI Palpation (GI): Soft to palpation, nontender and No hepatosplenomegaly present Auscultation: normal bowel sounds Rectal Exam - Female: deferred Skin General skin exam: no rashes or lesions noted Neuro General: patient oriented x3, gait normal and moves all extremities Cranial nerves: Yes Equal, round and reactive pupils present and Yes Normal hearing present Speech: No Abnormal speech present Psych Appearance: grossly normal Mental Status: mental status grossly normal Assessment & Plan Assessment & Plan (1) Iron deficiency: Comment: Due to menorrhagia Code(s): E61.1 - Iron deficiency Category: Medical (2) Hemorrhoids: Comment: status post surgery by Dr. Diaz 12/2017 Code(s): K64.9 - Unspecified hemorrhoids Category: Medical Qualifiers: Hemorrhoid type: unspecified Qualified Code(s): K64.9 - Unspecified hemorrhoids (3) Chronic abdominal pain: Code(s): R10.9 - Unspecified abdominal pain; G89.29 - Other chronic pain Category: Medical (4) GERD (gastroesophageal reflux disease): Code(s): K21.9 - Gastro-esophageal reflux disease without esophagitis Category: Medical Qualifiers: Esophagitis presence: esophagitis presence not specified Qualified C ode(s): K21.9 - Gastro-esophageal reflux disease without esophagitis (5) Chronic idiopathic constipation: Code(s): K59.04 - Chronic idiopathic constipation Category: Medical (6) Abdominal bloating: Code(s): R14.0 - Abdominal distension (gaseous) Category: Medical (7) Iron deficiency anemia: Code(s): D50.9 - Iron deficiency anemia, unspecified Category: Medical (8) Lactose intolerance in adult: Code(s): E73.9 - Lactose intolerance, unspecified Category: Medical (9) Small intestinal bacterial overgrowth: Code(s): K63.8219 - Small intestinal bacterial overgrowth, unspecified Category: Medical Plan 48 YF followed in GI for intermittent abdominal pain associated with change in bowel habits with intermittent loose non-bloody diarrhea. She was using Ibuprofen a lot and advised to stop taking it by her PCP a few months ago. She has chronic iron deficiency anemia attributed to menstrual blood loss. Her symptoms can be related to PUD or small bowel ulcers given past NSAID use, IBS with diarrhea, eosinophilic gastroenteritis or FMF, angioedema. Also need to rule out adrenal insufficiency, acute intermittent porphyria - urinary PBG during an episode of abdominal pain was normal Patient denies improvement in symptoms with dicyclomine or a Imipramine. Her symptoms are likely due to IBS as above thacker was negative except for minimally elevated homocysteine levels which can be due to Vitamin B12, B 6 or folate deficiency. She took pantoprazole for 14 days after her visit to [facility] and noted partial improvement in her symptoms. 08/2020 EGD and Colon were performed and findings as noted above She was advised to: 1.? Stop pantoprazole and take Omeprazole 20 mg twice daily. 2.? Start taking a Probitoic and an MVI daily 3.? Go on a liquid diet and take Miralax prep to cleanse her colon to see if her abdominal pain improved 4.? Pt handout on IBS from [facility] was given to the patient Feels 50% improvement in heartburn Noted significant improvement in abdominal pain after taking medication to clean out her colon Stopped Linzess due to diarrhea. Advised to continue topical ointment for Anal Fissure and increase citrucil to twice a day Patient handout on anal fissure (from [facility]) was given to the patient. Referred to surgery for evaluation for lateral sphincterotomy for non-healing anal fissure I will check a fecal calprotectin to rule out Crohn's disease. Referred to [facility] to assist with wt loss for morbid obesity 12/24/22 Advised to take Lactaid pills with milk products [place] of Amitiza for constipation 09/2022 Caspule Endoscopy (evaluation of abd pain, NATHAN, elevated CRP and borderline fecal calprotectin of 86) was normal 02/18/23 Pt advised to continue taking Amitiza and follow a FODMAP diet for 6 we eks (Handout mailed to the patient with after visit summary) 04/3024 complains of abd pain, bloating and burping Gas smells awful - denies recent antibiotic use Advised to: 1. Take Linzess 72 mcg daily for constipation (takes at bedtime and is able to have a BM the following day) 2. Simethicone for gas and bloating 3. Resume FODMAP diet x 6 weeks - handout on FODMAP diet given to the patient. 4. [place] of antibiotics (Augmentin x 10 days) for suspected SIBO FU in 3 months - scheduled 09/28/24 Medications: New linaclotide (Linzess) 72 mcg PO QAM 90 days 90 caps 1RF K59.04 - Chronic idiopathic constipation simethicone (Gas Relief (simethicone)) 250 mg (2 x 125 mg) PO BID 60 days PRN 180 tabs 3RF abdominal distention R14.0 - Abdominal distension (gaseous) amoxicillin-pot clavulanate 875-125 mg 1 tab PO Q12H 10 days 20 tabs 0RF K63.8219 - Small intestinal bacterial overgrowth, unspecified Coding Level of Care Code Est Pt Level 4 (86455) Diagnoses Iron deficiency E61.1 Hemorrhoids, unspecified hemorrhoid type K64.9 Hemorrhoid type: unspecified Chronic abdominal pain R10.9; G89.29 Gastroesophageal reflux disease, unspecified whether esophagitis present K21.9 Esophagitis presence: esophagitis presence not specified Chronic idiopathic constipation K59.04 Abdominal bloating R14.0 Iron deficiency anemia D50.9 Lactose intolerance in adult E73.9 Small intestinal bacterial overgrowth K63.8219 Time Spent (min) 25
[2024-05-25 11:26] VITALS: BP 110/56; PULSE 78; O2SAT 96; BMI 48.1
--- OUTSIDE RECORDS SUMMARY | 2024-05-25 15:02 | XMS_ITS | Data Portability ---
Author Organization [place] - [facility], Allergy Address [address] [place] [phone] Care Team Providers Care Montessori Teacher Name Role Phone BENJIEPATRICIAAudreyAVTAR Primary Care Provider Assessment Encounter Date Assessment Date Assessment LastModified by Organization Details LastModified Time 01/06/2024 01/06/2024 48-year-old female presents for cerumen removal. Cerumen impaction removed bilaterally. Bilateral TMs are intact. Follow-up in 3 months for routine debridement. [email or web address] Not available 01/06/2024 13:40:15 04/12/2024 04/12/2024 48-year-old female presents for cerumen removal. Cerumen impaction removed bilaterally. Bilateral TMs are intact. Follow-up in 3 months for routine debridement. [email or web address] Not available 04/12/2024 15:37:02 Plan of Treatment [...] Recorded Time Obstructi ve sleep apnea syndrome 37518444 Active 2014 Obstructi ve sleep apnea (adult) (pediatri c); Note: Date Diagnosed : 12/18/2014 3:10 PM (327.23) Obstruc tive sleep apnea (adult) (pediatri c); Note: Date Diagnosed : 12/18/2014 3:10 PM (G47.33) Not Available [facility] 4 02:29:44 Chronic mycotic otitis externa 079986893 Active 2016 Chronic mycotic otitis externa; Note: Date Diagnosed : 7 11:32 AM (380.15) Not Available [facility] 4 02:29:50 Bilateral disorder of Eustachia n tubes 69007106391 19313 Active 2020 Other specified disorders of Eustachia n tube, bilateral ; Note: Date Diagnosed : 1 12:24 PM (H69.83) Not Available [facility] 4 02:29:54 Disorder of tongue 40263028 Active 2021 Other diseases of tongue; Note: Date Diagnosed : 2 1:24 PM (K14.8) Not Available [facility] 4 02:29:45 Eczema NOS Active 2018 Eczema NOS; Note: Date Diagnosed : 06/20/2018 2:33 PM (L30.9) Not Available [facility] 4 02:30:09 Infective otitis externa 21127335 Active 2013 Otitis externa; infective ; Location: right CMS Risk: low risk [facility] Treatment : establish ed problem (to examiner) : stable or improved Note: Date Diagnosed : 01/26/2014 3:10 PM (380.10) Not Available [facility] 4 02:29:52 Allergic rhinitis 52537993 Active 2015 Other allergic rhinitis; Note: Date Diagnosed : 09/20/2015 9:28 AM (J30.89) Not Available [facility] 4 02:29:50 Candidal otitis externa 88834161 Active 2014 Candidal otitis externa; Note: Date Diagnosed : 04/02/2015 11:06 AM (B37.84) Not Available [facility] 4 02:30:06 Dysphagia 90865150 Active 2015 Dysphagia , unspecifi ed; Note: Date Diagnosed : 09/06/2015 11:24 AM (R13.10) Not Available [facility] 4 02:30:00 Impacted cerumen in left ear 45720032728 44618 Active 2014 Impacted cerumen, left ear; Note: Date Diagnosed : 04/02/2015 12:05 PM (H61.22) Not Available [facility] 4 02:29:48 Impacted cerumen 84855006 Active 2014 Impacted cerumen; Note: Date Diagnosed : 08/27/2014 11:07 AM (380.4) Not Available [facility] 4 02:30:09 Impacted cerumen of bilateral ears 38738497426 34043 Active 2015 Impacted cerumen, bilateral ; Note: Date Diagnosed : 09/06/2015 11:17 AM (H61.23) Not Available [facility] 4 02:29:49 Acute serous otitis media of right ear 46602645161 25839 Active 2015 Acute serous otitis media, right ear; Note: Date Diagnosed : 09/20/2015 9:28 AM (H65.01) Not Available [facility] 4 02:29:53 Nasal congestio n 63400487 Active 2018 Nasal congestio n; Note: Date Diagnosed : 12/05/2018 9:56 AM (R09.81) Not Available [facility] 4 02:30:05 Problem Notes None recorded. Procedures Surgical History Date Name Laterality Status Provider Name and Address Organization Details Recorded Time 4 Cerumen removal without microscope bilat completed JUANITO CRAVEN PA-C [address], [place], [address], [place] - [facility] 04/12/2024 15:36:56 4 Cerumen removal without microscope bilat completed JUANITO CRAVEN PA-C [address] [facility] [address],[address], [place], [address], [facility] - [facility] 01/06/2024 13:23:03 Imaging Results Imaging Date Name [...] % lotion 07/17 completed Medicati on ID: [id number] B rand Name: clotrima zole-bet amethaso ne [...] dose pack 12/05 completed Medicati on ID: [id number] P rescribe d By Name: JULISSA Meyer nd Name: Medrol (Kana) Se nd Method: E-Prescr ibed Sub s Allowed: subs OK Speci al Instruct ion: take as instruct ed Medic ationGen ericName : Medrol (Kana) Not Available Not Available Not Available metronida zole 500 mg tablet 12/05 completed Medicati on ID: [id number] D uration Value: 7 Reason: () Brand [...] gram oral solution active Medicati on ID: [id number] B rand Name: peg-elec trolyte soln Sen [...] a day 2022 active Medicati on ID: [id number] D uration Value: 14 Brand Name: chela jimenez ne Send Method: E-Prescr ibed Sub s Allowed: subs OK Speci al Instruct ion: Apply with fingerti p to bilatera l external ears x 14 days, then as needed M edicaticlaudette nGeneric Name: millyriblayne watt-artem srivastavao ne Not Available Not Available Not Available clotrimaz ole 1 % topical solution 11/14 completed Medicati on ID: [id number] D uration Value: 14 Brand Name: clotriblayne [...] mg capsule 10/16 completed Medicati on ID: [id number] D uration Value: 30 Brand Name: gabapent in Send Method: E-Prescr ibed Sub s Allowed: subs OK Speci al Instruct ion: TK 1 C PO BID Medi cationGe nericNam e: gabapent in Not Available Not Available Not Available hydroxyzi ne HCl 25 mg tablet active Medicati on ID: [id number] B rand Name: hydroxyz ine HCl Send Method: E-Prescr ibed Sub s Allowed: subs OK Medic ationGen ericName : hydroxyz ine HCl Not Available Not Available Not Available halobetas ol propionat e 0.05 % topical cream active Medicati on ID: [id number] B rand Name: halobeta abigail propiona te [...] drops Apply 06/09 completed Medicati on ID: [id number] D uration Value: 30 Brand Name: DermOtic [...] by mouth 05/14 completed Medicati on ID: [id number] Katarina william d By Name: JULISSA Meyer [...] Relief 50 mcg/actua tion nasal spray,emigdio pension [place] 2 spray into both nostrils once a day 2023 active Medicati on ID: [id number] D uration Value: 30 Brand Name: Flonase Allergy Relief S end Method: E-Prescr ibed Sub s Allowed: subs OK Medic ationGen ericName : Flonase Allergy Relief Not Available Not Available Not Available Wegovy 0.25 mg/0.5 mL subcutane ous pen injector active Not Available Not Available Not Available Daily-Vit e (with folic acid) 400 mcg tablet active Medicati on ID: [id number] B rand Name: Daily-Vi te (with folic acid) Se nd Method: E-Prescr ibed Sub s Allowed: subs OK Medic ationGen ericName : Daily-Vi te (with folic acid) Not Available Not Available Not Available Vitals Date Recorded Body height Body mass index (BMI) Body weight Provider Name and Address Organization Details Last Updated DateTime 01/06/2024 167.64 cm 40.4 kg/m2 686935.09 g Reed Aguilar [place] - [facility] 01/06/2024 13:21:36 Date Recorded Body height Body mass index (BMI) Body weight Provider Name and Address Organization Details Last Updated DateTime 04/12/2024 167.64 cm 40.4 kg/m2 042897.09 g Dee Dee Moncada [place] - [facility] 04/12/2024 15:00:53 Social History None recorded. Functional Status None recorded. Mental Status None recorded. Family History Nothing Reported. Medical History No medical history recorded. Gynecological HistoryNo gynecological history recorded. Obstetrics History GPAL:G 0 P 0 0 0 0 Past Encounters Encounter ID Performer Location Encounter Start Date Encounter Closed Date Diagnosis/Indication Diagnosis SNOMED-CT Code Diagnosis ICD10 Code Diagnosis Note [id number] HELLEN PENA MD [facility] [address] [phone] 01/06/2024 13:16:26 01/06/2024 13:46:28 Impacted cerumen of bilateral ears [id number] 677493 H61.23 [id number] HELLEN PENA MD [facility] [address] [address] 04/12/2024 14:44:04 04/12/2024 15:40:11 Impacted cerumen of bilateral ears [id number] 940215 H61.23 Health Concerns Section Related Observation LastModified by Organization Detai ls LastModified Time None Recorded Concern Status LastModified by Organization Details LastModified Time None Recorded Advance Directives Directive None Recorded Payers Encounter Date Sequence Insurance Name Policy Number Policy Dueñas Covered Member ID Dueñas Member ID Guarantor Name 01/06/2024 1 [facility] (MEDICAID O) HARIS James [id number] Adiel James 04/12/2024 1 [facility] PLAN (MEDICAID HMO) HARIS James [id number] Adiel James Notes Date Note Type Note Provider Name and Address Organization Details Recorded Time 01/06/2024 text/html 48-year-old lory hong presents for routine ear cleaning. No concerns today. History of eczema and uses DermOtic, Lotrisone cream, clotrimazole drops as needed. HELLEN PENA MD [address] [facility],[place] [address], [place], [address], [place] - [facility] 01/07/2024 08:59:54 04/12/2024 text/html 48-year-old lory hong presents for routine ear cleaning. No concerns today. History of eczema and uses DermOtic, Lotrisone cream, clotrimazole drops as needed. HELLEN PENA MD [address] [facility],[place] [address], [place], [address], [place] [facility] 04/13/2024 10:29:22 OBGyn Episode No OBEpisode recorded.
== END 2024-05-25 12:48 | disposition home or self-care (01) ==
PROVIDERS: PCP Internal Medicine; Visit Provider Internal Medicine Gastroenterology
DX: E61.1 Iron deficiency (principal); K64.9 Unspecified hemorrhoids; R10.9 Unspecified abdominal pain; G89.29 Other chronic pain; K21.9 Gastro-esophageal reflux disease without esophagitis; K59.04 Chronic idiopathic constipation; R14.0 Abdominal distension (gaseous); D50.9 Iron deficiency anemia, unspecified; E73.9 Lactose intolerance, unspecified; K63.8219 Small intestinal bacterial overgrowth, unspecified
CPT/HCPCS: 99214

== ENCOUNTER → 2024-05-25 11:10 | Outpatient (BNVA) | payer OTHER, SELFPAY | PROVIDERS: PCP Internal Medicine; Visit Provider Internal Medicine Gastroenterology | DX: R10.9 Unspecified abdominal pain (principal); G89.29 Other chronic pain; K21.9 Gastro-esophageal reflux disease without esophagitis; K64.9 Unspecified hemorrhoids; K59.04 Chronic idiopathic constipation; R14.0 Abdominal distension (gaseous); D50.9 Iron deficiency anemia, unspecified; E73.9 Lactose intolerance, unspecified; K63.8219 Small intestinal bacterial overgrowth, unspecified | CPT/HCPCS: 99212 ==

== ENCOUNTER 2024-08-30 12:52 | Outpatient (AMB) | payer OTHER, SELFPAY ==
[2024-08-30 12:54] VITALS: BP 122/70; PULSE 69; RESP 18; TEMP 37.2; O2SAT 98; BMI 47.2
--- NOTE | 2024-08-30 12:54 | MHC.PC.OV ---
Vital Signs 08/30/24 12:54 Height 5 ft 2 in Weight 258 lb BMI 47.2 BP 122/70 Blood Pressure Location Lt brachial Position Sitting Respiration 18 Pulse 69 Pulse Source Pulse Oximeter Temp 99.0 F Temp Source Oral Pulse Oximetry (%) 98 Oxygen Delivery Method Room Air Intake Visit Reasons: 3m follow up Intake Note: Pt is here today for 3 months follow up visit. Allergies No Known Allergies Allergy (Verified 08/30/24 12:54) Medication List - Last Reconciled 08/30/24 by Daniella Morris MD ascorbate calcium (vitamin C) 500 mg PO DAILY cholecalciferol (vitamin D3) 50 mcg PO DAILY docusate sodium 100 mg PO BEDTIME ferrous sulfate 325 mg PO DAILY gentamicin 0.3% 1 drp ophthalmic (eye) Q8H mometasone 0.1% 1 appl topical DAILY multivitamin with folic acid 400 mcg (Daily-Bisi (with folic acid)) 1 tab PO QAM omeprazole 40 mg PO DAILY polyethylene glycol 3350 (Miralax) 17 grams PO DAILY 1 day silver sulfadiazine 1% 1 appl topical BID simethicone (Gas Relief (simethicone)) 250 mg (2 x 125 mg) PO BID PRN 60 days Zepbound (tirzepatide (weight loss)) 5 mg (0.5 mL) subcut QWEEK NS Tobacco use date assessed: 08/30/24 Dental Screening Dental Screen Date: 05/18/24 HPI 3m follow up HPI Details patient presents for a follow-up of obesity. She took Zepbound for 2 months, 2.5 mg weekly for the 1st and followed by 5 mg weekly for the 2nd month. Patient could not get a refill on 5 mg Zepbound because of insurance pre-approval policy and has not been taking it for 2 months. patient tolerating medication well and lost 5 lb. chronic constipation is controlled on MiraLax and stool softeners. [facility] Medical History (Updated 08/30/24 @ 15:43 by Daniella Morris MD) Morbid obesity Chronic idiopathic constipation Pruritus ani Grieving Disc degeneration, lumbar H. pylori infection Annual physical exam Normal Pap smear Chronic abdominal pain Chronic constipation DJD (degenerative joint disease), lumbar Uterine fibroid Hemorrhoids Iron deficiency Surgical History Hx of section History of esophagogastroduodenoscopy (EGD) H/O colonoscopy No pertinent past surgical history Family History Father No problems noted. 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 Cognitive needs: No Hearing needs: No Vision needs: Yes Questionnaire Thrive Questionnaire Date Thrive assessed: 05/18/24 I am a: Patient What is your living situation today?: I have a steady place to live Within the past 12 months, did the food you bought not last and you didn't have the money to get more?: Never true Within the past 12 months, did you worry whether your food would run out before you got money to buy more?: Never true Do you have trouble paying for medicines?: No Do you have trouble getting transportation to medical appointments?: No Do you have trouble paying your heating and electricity bill?: No Do you have trouble taking care of your child, family member or friend?: No Do you have trouble with day-to-day activities such as bathing, preparing meals, shopping, managing finances, etc.?: No Are you currently unemployed and looking for a job?: No Are you interested in more education?: No Please select the resources that you would like help with: None Currently or been in a relationship where the following occur: No concerns reported THRIVE Score: 0 FARA-7 AMB Questionnaire FARA-7 Date FARA - 7 assessed: 05/18/24 Feeling nervous, anxious, or on edge: 0 = Not at all Not being able to stop or control worryin = Not at all Worrying too much about different things: 0 = Not at all Trouble relaxin = Not at all Being so restless that it is hard to sit still: 0 = Not at all Becoming easily annoyed or irritable: 0 = Not at all Feeling afraid as if something awful might happen: 0 = Not at all Total FARA-7 score (0-4 normal; 5-9 mild; 10-14 moderate; 15-21 severe): 0 Source: Developed by Drs. Endy Rodriguez, Constanza Celeste, Porfirio Esquivel and colleagues, with an educational erwin from [employer]. Review of Systems Const All systems reviewed & are unremarkable except as noted in HPI and below ENT Reports no additional complaints Card Reports no additional complaints Resp Reports no additional complaints GI Reports no additional complaints Reports no additional complaints Physical exam (Primary Care) Vital Signs: Last Vital Signs Temp 99.0 F 08/30/24 12:54 Pulse 69 08/30/24 12:54 Resp 18 08/30/24 12:54 BP 122/70 08/30/24 12:54 Pulse Ox 98 08/30/24 12:54 Oxygen Delivery Method Room Air 08/30/24 12:54 BMI result Body Mass Index 47.2 Tobacco/Smoking Status: Tobacco use Status Tobacco use date assessed 08/30/24 08/30/24 12:55 Patient Tobacco Use Status Former Tobacco user 08/30/24 12:55 e-Cigarette/Vaping Use Never Used 08/30/24 12:55 Thrive Assessment: Date of Thrive Assessment Date Thrive assessed 05/18/24 08/30/24 12:55 Currently or been in a relationship where the following occur: No concerns reported Const General: no acute distress HENMT Face and sinus: Yes normal facial exam Resp Effort & Inspection: normal respiratory effort Auscultation: clear to auscultation bilaterally Cardio Rhythm: regular rhythm Heart sounds: S1 normal heart sound present and S2 normal heart sound present GI Inspection: Yes normal to inspection Palpation (GI): Soft to palpation Percussion: Yes normal to percussion Coding Level of Care Code Est Pt Level 4 (34028) Diagnoses Chronic idiopathic constipation K59.04 Morbid obesity E66.01 Assessment & Plan Assessment & Plan (1) Chronic idiopathic constipation: Code(s): K59.04 - Chronic idiopathic constipation Category: Medical Plan: continue current bowel regimen (2) Morbid obesity: Comment: Patient has been decreasing caloric intake and exercising daily for 6 months Code(s): E66.01 - Morbid (severe) obesity due to excess calories Category: Medical Plan: patient will restart Zepbound and 5 mg weekly for the 1st month. If she tolerates medication well the dose will be increased to 7.5 mg weekly. she was advised to continue decreasing caloric intake increasing physical activity patient will follow-up in 3 months Medications: New ascorbate calcium (vitamin C) 500 mg PO DAILY 90 tabs 3RF Changed From ferrous sulfate 325 mg PO DAILY 90 tabs 3RF To ferrous sulfate 325 mg PO Q OTHER DAY 90 tabs 3RF Refilled Zepbound (tirzepatide (weight loss)) 5 mg (0.5 mL) subcut QWEEK 2 mL 1RF NS Zepbound (tirzepatide (weight loss)) 5 mg (0.5 mL) subcut QWEEK 2 mL 1RF NS
--- OUTSIDE RECORDS SUMMARY | 2024-08-30 13:56 | XMS_ITS | Data Portability ---
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 Cerumen impaction removed bilaterally. Bilateral TMs are intact. Follow-up in 3 months for routine debridement. [email or web address] Not available 01/06/2024 13:40:15 04/12/2024 04/12/2024 48-year-old female presents for cerumen removal. Cerumen impaction removed bilaterally. Bilateral TMs are intact. Follow-up in 3 months for routine debridement. [email or web address] Not available 04/12/2024 15:37:02 07/17/2024 07/17/2024 49-year-old female presents for cerumen removal. Cerumen impaction removed bilaterally. Bilateral TMs are intact. Patient subjectively noted improvement in her hearing following debridment and declined audiometric testing today. She will follow-up in 3 months for routine debridement or sooner with concerns. [email or web address] Not available 07/17/2024 11:59:23 Plan of Treatment Reminders Order Date Submit [...] ation record ed. [email or web address] Not Available 21:27:40 12/15/1901/05/2022 imagi ng/di agnos tic resul t No observ ation record ed. [email or web address] Not Available 21:28:07 12/15/19 24 03/25/2021 imagi ng/di agnos tic resul t No observ ation record ed. [email or web address] Not Available 21:28:32 Result Notes None recorded. Problems Name Problem SNOMED Code Status Onset Date Resolution Date Notes Provider Name and Address Organization Details Recorded Time Obstructi ve sleep apnea syndrome 48932935 Active 2014 Obstructi ve sleep apnea (adult) (pediatri c); Note: Date Diagnosed : 12/18/2014 3:10 PM (327.23) Obstruc tive sleep apnea (adult) (pediatri c); Note: Date Diagnosed : 12/18/2014 3:10 PM (G47.33) Not Available [facility] 4 02:29:44 Chronic mycotic otitis externa 530468315 Active 2016 Chronic mycotic otitis externa; Note: Date Diagnosed : 7 11:32 AM (380.15) Not Available [facility] 4 02:29:50 Bilateral disorder of Eustachia n tubes 34524040486 86316 Active 2020 Other specified disorders of Eustachia n tube, bilateral ; Note: Date Diagnosed : 1 12:24 PM (H69.83) Not Available [facility] 4 02:29:54 Disorder of tongue 56867478 Active 2021 Other diseases of tongue; Note: Date Diagnosed : 2 1:24 PM (K14.8) Not Available [facility] 4 02:29:45 Eczema NOS Active 2018 Eczema NOS; Note: Date Diagnosed : 06/20/2018 2:33 PM (L30.9) Not Available [facility] 4 02:30:09 Infective otitis externa 59153483 Active 2013 Otitis externa; infective ; Location: right CMS Risk: low risk CMS Treatment : establish ed problem (to examiner) : stable or improved Note: Date Diagnosed : 01/26/2014 3:10 PM (380.10) Not Available [facility] 4 02:29:52 Allergic rhinitis 60270945 Active 2015 Other allergic rhinitis; Note: Date Diagnosed : 09/20/2015 9:28 AM (J30.89) Not Available [facility] 4 02:29:50 Candidal otitis externa 42776380 Active 2014 Candidal otitis externa; Note: Date Diagnosed : 04/02/2015 11:06 AM (B37.84) Not Available [facility] 4 02:30:06 Dysphagia 51674756 Active 2015 Dysphagia , unspecifi ed; Note: Date Diagnosed : 09/06/2015 11:24 AM (R13.10) Not Available [facility] 4 02:30:00 Impacted cerumen in left ear 56685435005 59995 Active 2014 Impacted cerumen, left ear; Note: Date Diagnosed : 04/02/2015 12:05 PM (H61.22) Not Available [facility] 4 02:29:48 Impacted cerumen 15327825 Active 2014 Impacted cerumen; Note: Date Diagnosed : 08/27/2014 11:07 AM (380.4) Not Available [facility] 4 02:30:09 Impacted cerumen of bilateral ears 29014912675 07414 Active 2015 Impacted cerumen, bilateral ; Note: Date Diagnosed : 09/06/2015 11:17 AM (H61.23) Not Available [facility] 4 02:29:49 Acute serous otitis media of right ear 89258317105 85242 Active 2015 Acute serous otitis media, right ear; Note: Date Diagnosed : 09/20/2015 9:28 AM (H65.01) Not Available [facility] 4 02:29:53 Nasal congestio n 90340795 Active 2018 Nasal congestio n; Note: Date Diagnosed : 12/05/2018 9:56 AM (R09.81) Not Available [facility] 4 02:30:05 Problem Notes None recorded. Procedures Surgical History Date Name Laterality Status Provider Name and Address Organization Details Recorded Time 5 Cerumen removal without microscope bilat completed JUANITO CRAVEN PA-C [address] [facility],[address], [address], [place] - [facility] 07/17/2024 11:22:33 4 Cerumen removal without microscope bilat completed JUANITO CRVAEN PA-C [address] [facility],[place] [address], [place], [address], [place] - [facility] 04/12/2024 15:36:56 4 Cerumen removal without microscope bilat completed JUANITO CRAVEN PA-C [address] [facility],[place] [address], [place], [address], [place] - [facility] 01/06/2024 13:23:03 Imaging Results Imaging Date [...] silver sulfadiaz ine 1 % topical cream 1 APPLICAT ION TOPICALL Y 2 TIMES A DAY, APPLY A 1.5MM THICKNES S active Not Available Not Available No t Available Vitamin C 500 mg tablet TAKE 1 TABLET BY MOUTH EVERY DAY active Not Available Not Available No t Available trazodone 50 mg tablet TAKE 1-2 TABLET DAILY AT BEDTIME NEEDED FOR INSOMNIA active Not Available Not Available No t Available polyethyl mily glycol 3350 17 gram oral powder packet TAKE 1 PACKET EVERY DAY BY ORAL ROUTE IN THE MORNING FOR 30 DAYS. DISSOLVE IN WATER FIRST active Not Available Not Available No t [...] % lotion 07/17 completed Medicati on ID: [id number] B rand Name: clotrima zole-bet amethaso ne Send Method: E-Prescr ibed Sub s Allowed: subs OK Mark al Instruct ion: Apply a small amount [...] dose pack 12/05 completed Medicati on ID: [id number] P rescribe d By Name: JULISSA Meyer nd Name: Medrol (Kana) Se nd Method: E-Prescr ibed Sub s Allowed: subs OK Speci al Instruct ion: take as instruct ed Medic [facility] ericName : Medrol (Kana) Not Available Not Available Not Available metronida zole 500 mg tablet 12/05 completed Medicati on ID: [id number] D uration Value: 7 Reason: () Brand Name: metronid azole Se nd Method: E-Prescr ibed Sub s Allowed: subs OK Speci al Instruct ion: TK 1 T PO BID FOR 7 DAYS Med icationCliff enDavid me: metronid azole Not Available Not Available Not Available fluocinon nohelia 0.05 % topical ointment active Not Available Not Available Not Available acyclovir 400 mg tablet TAKE 1 TABLET BY MOUTH 3 TIMES DAILY FOR 10 DAYS. active Not Available Not Available No t Available peg-elect rolyte solution 420 gram oral solution active Medicati on ID: [id number] B rand Name: peg-elec trolyte soln Sen d Method: E-Prescr ibed Sub s Allowed: subs OK Medic [facility] ericName : peg-elec trolyte soln Not Available [...] Not Available Not Available No t Available bupropion HCl SR 100 mg tablet,12 hr sustained -release TAKE 1 TABLET BY MOUTH TWICE A DAY DIRECTED active Not Available Not Available No t [...] a day 2022 active Medicati on ID: [id number] D uration Value: 14 Brand Name: chela fernandez Send Method: E-Prescr ibed Sub s Allowed: subs OK Speci al Instruct ion: Apply with fingerti p to bilatera l external ears x 14 days, then as needed M michaelshannonshantelo nGeneric Name: chela fernandez Not Available Not Available Not Available clotrimaz ole 1 % topical solution 11/14 completed Medicati on ID: [id number] D uration Value: 14 Brand Name: chela watt Jonathan garcia Method: E-Prescr ibed Sub s Allowed: subs [...] mg capsule 10/16 completed Medicati on ID: [id number] D uration Value: 30 Brand Name: gabapent in Send Method: E-Prescr ibed Sub s Allowed: subs OK Speci al Instruct ion: TK 1 C PO BID Medi cationGe nericNam e: gabapent in Not Available Not Available Not Available hydroxyzi ne HCl 25 mg tablet active Medicati on ID: [id number] B rand Name: hydroxyz ine HCl Send Method: E-Prescr ibed Sub s Allowed: subs OK Medic ationGen ericName : hydroxyz ine HCl Not Available Not Available Not Available halobetas ol propionat e 0.05 % topical cream active Medicati on ID: [id number] B rand Name: halobeta abigail propiona te Send Method: E-Prescr ibed Sub s Allowed: subs OK Medic ationGen ericName : halobeta abigail propiona te Not Available Not Available Not Available mometason e 0.1 % topical ointment APPLY TOPICALL Y ONCE A DAY active Not Available Not Available [...] Not Available No t Available amoxicill in 875 mg-potass ium clavulana te 125 mg tablet TAKE 1 TABLET BY MOUTH EVERY 12 HOURS FOR 10 DAYS active Not Available Not Available No [...] Not Available Not Available No t Available Gas Relief Extra Strength 125 mg chewable tablet CHEW 2 TABLETS ORALLY 2 TIMES A DAY NEEDED FOR ABDOMINA L DISTENTI ON FOR 60 DAYS active Not Available Not Available No [...] drops Apply 06/09 completed Medicati on ID: [id number] D uration Value: 30 Brand Name: DermOtic Oil Send Method: E-Prescr ibed Sub s Allowed: subs OK Speci al Instruct ion: Apply 4 drops to each ear 2 times a week and as needed M edicatio nGeneric Name: DermOtic Oil Not Available Not Available Not Available Flovent Diskus 50 mcg/actua tion powder for inhalatio n 04/02 completed Medicati on ID: [id number] Debbie weir Name: Flonase Send Method: E-Prescr ibed Sub s Allowed: subs OK Speci al Instruct ion: 2 spray each nostril BID Medi cationGe nericNam e: Flonase Not Available Not Available Not Available omeprazol e 20 mg tablet,de layed release 1 tablet by mouth 05/14 completed Medicati on ID: [id number] P rescribe d By Name: JULISSA Meyer nd Name: omeprazo le Send Method: E-Prescr ibed Sub s Allowed: subs OK Speci al Instruct ion: Take 1 tablet by mouth every day before breakfas t Medica tionGene ricName: omeprazo le Not Available Not Available Not Available cholecalc iferol (vitamin D3) 50 mcg (2,000 unit) capsule TAKE 1 CAPSULE BY MOUTH EVERY DAY DIRECTED active Not Available Not Available No t Available Vitamin D3 50 mcg (2,000 unit) tablet TAKE 1 TABLET BY MOUTH EVERY DAY active Not Available Not Available No t Available Flonase Allergy Relief 50 mcg/actua tion nasal spray,emigdio pension [place] 2 spray into both nostrils once a day 2023 active Medicati on ID: [id number] D uration Value: 30 Brand Name: Flonase Allergy Relief S end Method: E-Prescr ibed Sub s Allowed: subs OK [facility] Fl[facility]ase Allergy Relief Not Available Not Available Not Available Linzess 72 mcg capsule TAKE 1 CAPSULE BY MOUTH EVERY DAY IN THE MORNING active Not Available Not Available No t Available Wegovy 0.25 mg/0.5 mL subcutane ous pen injector active Not Available Not Available Not Available Daily-Vit e (with folic acid) 400 mcg tablet active Medicati on ID: [id number] B rand Name: Daily-Vi te (with folic acid) Se nd Method: E-Prescr ibed Sub s Allowed: subs OK [facility] : Daily-Vi te (with folic acid) Not Available Not Available Not Available Vitals Date Recorded Body height Body mass index (BMI) Body weight Provider Name and Address Organization Details Last Updated DateTime 07/17/2024 167.64 cm 40.4 kg/m2 709658.09 g Dee Dee Moncada [facility] 07/17/2024 11:26:17 Date Recorded Body height Body mass index (BMI) Body weight Provider Name and Address Organization Details Last Updated DateTime 01/06/2024 167.64 cm 40.4 kg/m2 420970.09 g Reed Aguilar [facility] 01/06/2024 13:21:36 Date Recorded Body height Body mass index (BMI) Body weight Provider Name and Address Organization Details Last Updated DateTime 04/12/2024 167.64 cm 40.4 kg/m2 226187.09 g Dee Dee Moncada [facility] 04/12/2024 15:00:53 Social History None recorded. Functional Status None recorded. Mental Status None recorded. Family History Nothing Reported. Medical History No medical history recorded. Gynecological HistoryNo gynecological history recorded. Obstetrics History GPAL:G 0 P 0 0 0 0 Past Encounters Encounter ID Performer Location Encounter Start Date Encounter Closed Date Diagnosis/Indication Diagnosis SNOMED-CT Code Diagnosis ICD10 Code Diagnosis Note [id number] JUANITO CRAVEN PA-C [facility] [address] [place] [address] 01/06/2024 13:16:26 01/06/2024 13:46:28 Impacted cerumen of bilateral ears 5067715885 244330 H61.23 [id number] JUANITO CRAVEN PA-C [facility] [address] [place] [address] 04/12/2024 14:44:04 04/12/2024 15:40:11 Impacted cerumen of bilateral ears 7868558396 967795 H61.23 [id number] JUANITO CRAVEN PA-C [facility] [address] [address] 07/17/2024 11:20:12 07/17/2024 11:57:42 Impacted cerumen of bilateral ears 3754530021 076620 H61.23 Health Concerns Section Related Observation LastModified by Organization Detai ls LastModified Time None Recorded Concern Status LastModified by Organization Details LastModified Time None Recorded Advance Directives Directive None Recorded Payers Insurance Date Sequence Insurance Name Policy Number Policy Dueñas Covered Member ID Dueñas Member ID Guarantor Name 07/17/2024 1 [facility] - HEALTH NET PLAN (MEDICAID HMO) [place] Adiel James [id number] Adiel James Notes Date Note Type Note Provider Name and Address Organization Details Recorded Time 01/06/2024 text/html 48-year-old lory hong presents for routine ear cleaning. No concerns today. History of eczema and uses DermOtic, Lotrisone cream, clotrimazole drops as needed. HELLEN PENA MD [address] [place] [address], [phone], [facility] - [facility] 01/07/2024 08:59:54 04/12/2024 text/html 48-year-old lory hong presents for routine ear cleaning. No concerns today. History of eczema and uses DermOtic, Lotrisone cream, clotrimazole drops as needed. HELLEN PENA MD [address] [facility],[address], [address], [facility] - [facility] 04/13/2024 10:29:22 07/17/2024 text/html 49-year-old lory hong presents for routine ear cleaning. Reports itching and decreased hearing bilaterally. History of eczema and has used DermOtic, Lotrisone cream, clotrimazole drops as needed. CHIKIS ORTEGA MD [address] [facility],[place] [address], [place], [phone], [facility] 07/17/2024 12:47:47 OBGyn Episode No OBEpisode recorded.
== END 2024-08-30 15:45 | disposition home or self-care (01) ==
LOC: HO.HMCC 12:52
PROVIDERS: PCP Internal Medicine; Visit Provider Internal Medicine
DX: K59.04 Chronic idiopathic constipation (principal); E66.01 Morbid (severe) obesity due to excess calories; Z68.42 Body mass index [BMI] 45.0-49.9, adult

== ENCOUNTER → 2024-08-30 12:52 | Outpatient (BNVA) | payer OTHER, SELFPAY | PROVIDERS: PCP Internal Medicine; Visit Provider Internal Medicine | DX: K59.04 Chronic idiopathic constipation (principal); E66.01 Morbid (severe) obesity due to excess calories; Z68.42 Body mass index [BMI] 45.0-49.9, adult | CPT/HCPCS: 99212 ==

== ENCOUNTER 2024-10-11 10:21 | Outpatient (AMB) | payer OTHER, SELFPAY ==
--- NOTE | 2024-10-11 10:22 | A.OFFVIS_ITS ---
Intake Visit Reasons: 3 month follow up Intake Note: Adiel presents as a 3 month follow up teleahealth. CC: States that she has the usual stomach pains but denies other GI symptoms. Allergies No Known Allergies Allergy (Verified 08/30/24 12:54) Medication List - Last Reconciled 10/11/24 by Bubba Casanova MD ascorbate calcium (vitamin C) 500 mg PO DAILY cholecalciferol (vitamin D3) 50 mcg PO DAILY docusate sodium 100 mg PO BEDTIME ferrous sulfate 325 mg PO Q OTHER DAY gentamicin 0.3% 1 drp ophthalmic (eye) Q8H linaclotide (Linzess) 72 mcg PO DAILY mometasone 0.1% 1 appl topical DAILY multivitamin 1 tab PO QAM omeprazole 40 mg PO DAILY polyethylene glycol 3350 (Miralax) 17 grams PO DAILY 1 day silver sulfadiazine 1% 1 appl topical BID simethicone (Gas Relief (simethicone)) 250 mg (2 x 125 mg) PO BID PRN 60 days Zepbound (tirzepatide (weight loss)) 5 mg (0.5 mL) subcut QWEEK NS HPI HPI 3 month follow up: Details: Telemedicine visit for this 49-year-old female for FU of chronic abdominal pain and bloating Pt was referred by Silva Daley NP in the past for a 2nd opinion TODAY'S VISIT: Adiel presents as a 3 month follow up teleahealth. CC: States that she has the usual stomach pains but denies other GI symptoms. Linzess has been helping me Sometimes my stomach hurts - approx three times a week and last a few hours Gets a sharp pain and she can barely walk - improved when she is able to walk or use the bathroom. ? caused by eating bread or cheese - advised to take lactaid pills with milk products Trying sour dough bread. Taking Linzess every other day and is having a BM every day. Took antibiotics and it helped with foul smelling stools for 2 months. Tried Probiotics in the past and it was'nt helpful. PAST VISITS: Patient cc: abdominal pain with bloating, acid reflex with burning sensation, between diarrhea and constipation. I have a lot of gas and constipation - takes Senna and Miralax Avoids dairy. Tried the FODMAP diet and felt a little bit better. Burps a lot Stomach bothers her a lot Has a BM 2 times a week. Gas smells awful - denies recent antibiotic use Found the Linzess and used it twice and helped with constipation Tried Amitiza in the past and it didnt work and she stopped taking it. Continues to have problems despite using Amtiza for the past 2-3 months Has to use a stool softeners daily in addition. Continues to have a lot of bloating and taking simethicon which helps a little. Taking Omeprazole at bedtime and advised to switch to the morning - 20-30 min before breakfast Has been taking Lactaid products before she takes dairy - helps a little - does not take too much dairy Has been taking probiotics (bought from [employer]) for the past 2 months and is taking at night PAST VISIT: Having stomach pain and a lot of gas. Has a BM twice a day - stools can be hard intermittently Anal itching resolved and does not need to use topical cream any more Menstrual bleeding is not too bad at present Everytime I have a BM, my stomach hurts Has intermittent fecal incontinence - twice a week with leakage of loose stools when she passes gas No longer has a fissure any more. Trying to eat less and having less frequent BM. Perianal area is still irritated and not as painful. Capsule endoscopy results reviewed with the patient Patient cc: abdominal pain/bloating with a lot of gas, GERD with burning sensation. Denies any other GI issues. Feels 50% improvement in heartburn Noted significant improvement in abdominal pain after taking medication to clean out her colon Getting depressed due to GI issues Rectal pain and diagnosed with anal fissure (by Dr Kate at [facility]) and was prescribed topical cream which was compounded (? NTG) - still using it twice daily and fissure has not healed. Notes blood on the tissue when she wipes. Feels she is unable to empty herself completely. Noted diarrhea when she was taking the Linzess and Linzess was stopped by [place]. [place] good when she was taking Linzess - was having several BMs a day. Notes rectal itching when she uses the bathroom - diagnosed with eczema involving the rectum. Noted significant improvement in abdominal pain after taking medication to clean out her colon Pt is accompanied by her little granddaughter, Shirin. Has a lot of acid that comes up. Continues to have upper abdominal pain - every day instead of once a week. Pain is very strong before a BM and feels weak after she has a BM. BMs are normal - 2-3 times a day. Sometimes she feels she is not getting rid of all the stool. felt better after starting Pantoprazole and it appears to have stopped working Allergy testing was negative in the past. Continues to have abdominal pain - not as bad as in the past. Continues to have acid despite taking pantoprazole daily. Feels burning in her chest. Has not had episodes of acid coming out of her nose and mouth recently Pt states I am having heartburn, I would say some constipation. No stomach pains. I have been having a few stomach problems. Woke up with acid coming out of her nose and mouth - 3 episodes over the past 2 months. Denies eating late, had spaghetti the night before. Had dinner at 6 pm and sleeps at 9 pm. Intermittent stabbing upper abdominal pain for the past year. She is frustrated and would like to have this resolved JOSE RAFAEL. Pain radiates laterally to the back and can be upto 10/10 Had terrible pain a few weeks ago after she had steak and she stopped eating steak. Pain can last for 4-5 days.? Still has discomfort and is not as strong. She burps a lot. Intermittent loose stools and constipated twice a month Can have 6 loose to watery BMs when she has diarrhea. No blood and intermittent mucous. Can wake up with no pain and can have pain after she has a BM. Intermittent nausea and vomited a few times a week. No change in appetite or weight. Admits to heartburn and was taking TUMS. Had normal BM once a day prior to onset of symptoms. Has anemia for the past 5 yrs. Had fibroids removed 2 yrs ago which helped with menorrhagia Patient denies major cardiac or pulmonary problems, Pt admits to having sleep apnea and uses a CPAP machine Denies problems with anesthesia in the past. Denies being on chronic anticoagulation. She was using Ibuprofen a lot and advised to stop taking it by her PCP two months ago. Pt denies past hx of PUD, joint pains.? ? rash which resolved Patient denies known family history of colon polyps, colon cancer or other GI malignancies. 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 Had a Colonoscopy in 2017 at [facility] - prep was not good IMAGING STUDIES:? 07/11/[address] SCAN SHOWED: Low attenuation structures within the adnexa bilaterally measuring 2 x 1.5 cm on the left and 1.2 cm on the right. The structure on the rightis a thin rim enhancement. This could represent cyst or dominant follicles. On the right, given the thin rim of enhancement, corpus luteum could be a consideration as well. Further evaluation could be obtained with pelvic ultrasound. Mild hepatomegaly. ENDOSCOPIC STUDIES:? 09/2022 CAPSULE ENDOSCOPY SHOWED: Findings: stomach appeared normal. Duodenum entered at 23 mins. Good visualization of small bowel and no masses, ulcers or bleeding points noted. Cecum reached at 3 hr 36 min Conclusion: normal study, no active bleeding seen. 08/2020 EGD? AND COLONOSCOPY SHOWED:Endoscopy Findings: STOMACH: Mild gastric erythema with a single antral erosion - biopsied. Colonoscopy Findings: No polyps were detected. Random biopsies obtained from right and colon.? Biopsies obtained from the rectum to rule out amyloidosis Moderate diverticulosis seen in the sigmoid colon Small hemorrhoids on retroflexed exam. Plan:? Patient has an appointment on 10/31/20 in the GI Clinic with Bubba Casanova M.D.. Repeat Colonoscopy interval based on path results - in 10 years if biopsies are normal. BIOPSIES SHOWED: A.? Small bowel, biopsy:? Duodenal mucosa within normal limits. B.? Stomach, antrum, biopsy:? Antral-type mucosa with moderate chronic inactive inflammation; no Helicobacter organisms seen. C.? Stomach, erosion, biopsy:? Oxyntic mucosa with moderate chronic inactive inflammation and patchy atrophy; no Helicobacter organisms seen. D.? Stomach, body, biopsy:? Oxyntic mucosa with mild chronic inactive inflammation; no atrophy seen; no Helicobacter organisms seen. E.? Colon, random right, biopsy:? Melanosis coli; otherwise colonic mucosa within normal limits. F.? Colon, random left, biopsy:? Colonic mucosa within normal limits PFSH Medical History Morbid obesity Chronic idiopathic constipation Pruritus ani Grieving Disc degeneration, lumbar H. pylori infection Annual physical exam Normal Pap smear Chronic abdominal pain Chronic constipation DJD (degenerative joint disease), lumbar Uterine fibroid Hemorrhoids Iron deficiency Surgical History Hx of section History of esophagogastroduodenoscopy (EGD) H/O colonoscopy No pertinent past surgical history Family History Father No problems noted. 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 Cognitive needs: No Hearing needs: No Vision needs: Yes Review of Systems Const All systems reviewed & are unremarkable except as noted in HPI and below Telehealth Telehealth Telehealth Platform: Telephone Location of provider rendering services: practice address Location of patient: address on file Patient Identification confirmed using: Name, : Yes Telehealth method: voice only Patient verbally consented to treatment: Yes Patient verbally consented to billing insurance company: Yes Patient informed of any privacy concerns related to visit: Yes Minutes spent on Phone/Video with Pt.: 17 Assessment & Plan Assessment & Plan (1) Hemorrhoids: Comment: status post surgery by Dr. Diaz 12/2017 Code(s): K64.9 - Unspecified hemorrhoids Category: Medical Qualifiers: Hemorrhoid type: unspecified Qualified Code(s): K64.9 - Unspecified hemorrhoids (2) H. pylori infection: Code(s): A04.8 - Other specified bacterial intestinal infections Category: Medical (3) GERD (gastroesophageal reflux disease): Code(s): K21.9 - Gastro-esophageal reflux disease without esophagitis Category: Medical Qualifiers: Esophagitis presence: esophagitis presence not specified Qualified Code(s): K21.9 - Gastro-esophageal reflux disease without esophagitis (4) Chronic idiopathic constipation: Code(s): K59.04 - Chronic idiopathic constipation Category: Medical (5) Abdominal bloating: Code(s): R14.0 - Abdominal distension (gaseous) Category: Medical (6) Small intestinal bacterial overgrowth: Code(s): K63.8219 - Small intestinal bacterial overgrowth, unspecified Category: Medical Plan 49 YF followed in GI for intermittent abdominal pain associated with change in bowel habits with intermittent loose non-bloody diarrhea. She was using Ibuprofen a lot and advised to stop taking it by her PCP a few months ago. She has chronic iron deficiency anemia attributed to menstrual blood loss. Her symptoms can be related to PUD or small bowel ulcers given past NSAID use, IBS with diarrhea, eosinophilic gastroenteritis or FMF, angioedema. Also need to rule out adrenal insufficiency, acute intermittent porphyria - urinary PBG during an episode of abdominal pain was normal Patient denies improvement in symptoms with dicyclomine or a Imipramine. Her symptoms are likely due to IBS as above thacker was negative except for minimally elevated homocysteine levels which can be due to Vitamin B12, B 6 or folate deficiency. She took pantoprazole for 14 days after her visit to [facility] and noted partial improvement in her symptoms. 08/2020 EGD and Colon were performed and findings as noted above She was advised to: 1.? Stop pantoprazole and take Omeprazole 20 mg twice daily. 2.? Start taking a Probitoic and an MVI daily 3.? Go on a liquid diet and take Miralax prep to cleanse her colon to see if her abdominal pain improved 4.? Pt handout on IBS from [facility] was given to the patient Feels 50% improvement in heartburn Noted significant improvement in abdominal pain after taking medication to clean out her colon Stopped Linzess due to diarrhea. Advised to continue topical ointment for Anal Fissure and increase citrucil to twice a day Patient handout on anal fissure (from [facility]) was given to the patient. Referred to surgery for evaluation for lateral sphincterotomy for non-healing anal fissure I will check a fecal calprotectin to rule out Crohn's disease. Referred to [employer] [facility] to assist with wt loss for morbid obesity 12/24/22 Advised to take Lactaid pills with milk products Sheridan of Amitiza for constipation 09/2022 [facility] Endoscopy (evaluation of abd pain, NATHAN, elevated CRP and borderline fecal calprotectin of 86) was normal 02/18/23 Pt advised to continue taking Amitiza and follow a FODMAP diet for 6 weeks (Handout mailed to the patient with after visit summary) 04/3024 complains of abd pain, bloating and burping Gas smells awful - denies recent antibiotic use Advised to: 1. Take Linzess 72 mcg daily for constipation (takes at bedtime and is able to have a BM the following day) 2. Simethicone for gas and bloating 3. Resume FODMAP diet x 6 weeks - handout on FODMAP diet given to the patient. 4. Sheridan of antibiotics (Augmentin x 10 days) for suspected SIBO 06/2024 stool Cologuard test was negative. 10/11/24 Pt advised to take Linzess 72 mcg daily instead of every other day. Take Lactaid pills with mild products. Take another course of p.o. antibiotics for suspected SIBO FU in 6 months Medications: New amoxicillin-pot clavulanate 875-125 mg 1 tab PO Q12H 20 tabs 0RF 10 days K63.8219 - Small intestinal bacterial overgrowth, unspecified Coding Level of Care Code Tele Est Pt Level 3 (48844) Diagnoses Hemorrhoids, unspecified hemorrhoid type K64.9 Hemorrhoid type: unspecified H. pylori infection A04.8 Gastroesophageal reflux disease, unspecified whether esophagitis present K21.9 Esophagitis presence: esophagitis presence not specified Chronic idiopathic constipation K59.04 Abdominal bloating R14.0 Small intestinal bacterial overgrowth K63.8219 Time Spent (min) 17
--- OUTSIDE RECORDS SUMMARY | 2024-10-11 11:44 | XMS_ITS | Data Portability ---
Author Organization [place] - [facility] Address [address] [place] [phone] Care Team Providers Care Reimbursement Specialist Name Role Phone MARY JACINTOANNA Primary Care Provider [phone] Assessment Encounter Date Assessment Date Assessment LastModified by Organization Details LastModified Time 01/06/2024 01/06/2024 48-year-old female presents for cerumen removal. Cerumen impaction removed bilaterally. Bilateral TMs are intact. Follow-up in 3 months for routine debridement. Not available 01/06/2024 13:40:15 04/12/2024 04/12/2024 48-year-old female presents for cerumen removal. Cerumen impaction removed bilaterally. Bilateral TMs are intact. Follow-up in 3 months for routine debridement. [email or web address] Not available 04/12/2024 15:37:02 07/17/2024 07/17/2024 49-year-old female presents for cerumen removal. Cerumen impaction removed bilaterally. Bilateral TMs are intact. Patient subjectively noted improvement in her hearing following debridment and declined audiometric testing today. She will follow-up in 3 months for routine debridement or sooner with concerns. Not available 07/17/2024 11:59:23 Plan of Treatment Reminders Order Date Submit Date Provider Last Modified By Organization Details Last Modified Time Details Appointments New Patient 30 2024 10:00A M JUANITO CRAVEN PA-C Not available Not available Not available Lab None recorded . Referral None recorded . Procedures None recorded . Surgeries None recorded . Imaging None recorded . Medication Orders None recorded . Patient TargetsNo targets recorded. Patient InstructionsNo instructions [...] Recorded Time Obstructi ve sleep apnea syndrome 53992018 Active 2014 Obstructi ve sleep apnea (adult) (pediatri c); Note: Date Diagnosed : 12/18/2014 3:10 PM (327.23) Obstruc tive sleep apnea (adult) (pediatri c); Note: Date Diagnosed : 12/18/2014 3:10 PM (G47.33) Not Available [facility] 4 02:29:44 Chronic mycotic otitis externa 563332020 Active 2016 Chronic mycotic otitis externa; Note: Date Diagnosed : 7 11:32 AM (380.15) Not Available [facility] 4 02:29:50 Bilateral disorder of Eustachia n tubes 97557463132 15208 Active 2020 Other specified disorders of Eustachia n tube, bilateral ; Note: Date Diagnosed : 1 12:24 PM (H69.83) Not Available [facility] 4 02:29:54 Disorder of tongue 24315109 Active 2021 Other diseases of tongue; Note: Date Diagnosed : 2 1:24 PM (K14.8) Not Available [facility] 4 02:29:45 Eczema NOS Active 2018 Eczema NOS; Note: Date Diagnosed : 06/20/2018 2:33 PM (L30.9) Not Available [facility] 4 02:30:09 Infective otitis externa 14903879 Active 2013 Otitis externa; infective ; Location: right CMS Risk: low risk CMS Treatment : establish ed problem (to examiner) : stable or improved Note: Date Diagnosed : 01/26/2014 3:10 PM (380.10) Not Available [facility] 4 02:29:52 Allergic rhinitis 52975945 Active 2015 Other allergic rhinitis; Note: Date Diagnosed : 09/20/2015 9:28 AM (J30.89) Not Available [facility] 4 02:29:50 Candidal otitis externa 22396504 Active 2014 Candidal otitis externa; Note: Date Diagnosed : 04/02/2015 11:06 AM (B37.84) Not Available [facility] 4 02:30:06 Dysphagia 43581318 Active 2015 Dysphagia , unspecifi ed; Note: Date Diagnosed : 09/06/2015 11:24 AM (R13.10) Not Available [facility] 4 02:30:00 Impacted cerumen in left ear 18990188394 99912 Active 2014 Impacted cerumen, left ear; Note: Date Diagnosed : 04/02/2015 12:05 PM (H61.22) Not Available [facility] 4 02:29:48 Impacted cerumen 37557066 Active 2014 Impacted cerumen; Note: Date Diagnosed : 08/27/2014 11:07 AM (380.4) Not Available [facility] 4 02:30:09 Impacted cerumen of bilateral ears 75881865365 61255 Active 2015 Impacted cerumen, bilateral ; Note: Date Diagnosed : 09/06/2015 11:17 AM (H61.23) Not Available [facility] 4 02:29:49 Acute serous otitis media of right ear 21267260049 59338 Active 2015 Acute serous otitis media, right ear; Note: Date Diagnosed : 09/20/2015 9:28 AM (H65.01) Not Available [facility] 4 02:29:53 Nasal congestio n 52163679 Active 2018 Nasal congestio n; Note: Date Diagnosed : 12/05/2018 9:56 AM (R09.81) Not Available [facility] 4 02:30:05 Problem Notes None recorded. Procedures Surgical History Date Name Laterality Status Provider Name and Address Organization Details Recorded Time 5 Cerumen removal without microscope bilat completed JUANITO CRAVEN PA-C [address] [place] [address],[address], [phone], [facility] - [facility] 07/17/2024 11:22:33 4 Cerumen removal without microscope bilat completed JUANITO CRAVEN PA-C [address] [place] [address],[address], [phone], [facility] - [facility] 04/12/2024 15:36:56 4 Cerumen removal without microscope bilat completed JUANITO CRAVEN PA-C [address] [place] [address],[address], [phone], [facility] 01/06/2024 13:23:03 Imaging Results None recorded. Procedure Notes None recorded. Medical Equipment None [...] % lotion 07/17 completed Medicati on ID: [id number] B rand Name: clotrima zole-bet amethaso ne [...] HYPERPIG MENTED AREA TWICE A DAY FOR 3-4 MONTHS active Not Available Not Available No t Available Medrol (Kana) 4 mg tablets in a dose pack 12/05 completed Medicati on ID: [id number] P nataliia garcia By Name: JULISSA Meyer nd Name: Medrol (Kana) Se nd Method: E-Prescr ibed Sub s Allowed: subs OK Speci al Instruct ion: take as instruct ed Medic [facility] ericName : Medrol (Kana) Not Available Not Available Not Available metronida zole 500 mg tablet 12/05 completed Medicati on ID: [id number] D uration Value: 7 Reason: () Brand [...] gram oral solution active Medicati on ID: [id number] B rand Name: peg-elec trolyte soln Sen d Method: E-Prescr ibed Sub s Allowed: subs OK Medic [facility] ericName : peg-elec trolyte soln Not Available [...] 1 TABLET BY MOUTH TWICE A DAY active Not Available Not [...] tablet TAKE 1 TABLET BY MOUTH EVERY OTHER DAY active Not Available Not Available No t Available clotrimaz ole-betam ethasone 1 %-0.05 % topical cream Apply 1 a small amount twice a day 2022 active Medicati on ID: [id number] D uration Value: 14 Brand Name: clotriblayne zole-bet amethaso ne Send Method: E-Prescr ibed Sub s Allowed: subs OK Speci al Instruct ion: Apply with fingerti p to bilatera l external ears x 14 days, then as needed M edicatio nGeneric Name: millyriblayne macdonalde-bet amethaso ne Not Available Not Available Not Available clotrimaz ole 1 % topical solution 11/14 completed Medicati on ID: [id number] D uration Value: 14 Brand Name: clotriblayne [...] mg capsule 10/16 completed Medicati on ID: [id number] D uration Value: 30 Brand Name: gabapent in Send Method: E-Prescr ibed Sub s Allowed: subs OK Speci al Instruct ion: TK 1 C PO BID Medi cationGe nericNam e: gabapent in Not Available Not Available Not Available hydroxyzi ne HCl 25 mg tablet active Medicati on ID: [id number] B rand Name: hydroxyz ine HCl Send Method: E-Prescr ibed Sub s Allowed: subs OK Medic at[facility] ericName : hydroxyz ine HCl Not Available Not Available Not Available halobetas ol propionat e 0.05 % topical cream active Medicati on ID: [id number] B rand Name: halobeta abigail propiona te [...] drops Apply 06/09 completed Medicati on ID: [id number] D uration Value: 30 Brand Name: DermOtic [...] by mouth 05/14 completed Medicati on ID: [id number] Katarina garcia By Name: JULISSA Meyer nd Name: omeprazo [...] Relief 50 mcg/actua tion nasal spray,emigdio pension [place] 2 spray into both nostrils once a day 2023 active Medicati on ID: [id number] D uration Value: 30 Brand Name: Flonase [...] 400 mcg tablet active Medicati on ID: [id number] B rand Name: Daily-Vi te (with folic acid) Se nd Method: E-Prescr ibed Sub s Allowed: subs OK Medic ationGen ericName : Daily-Vi te (with folic acid) Not Available Not Available Not Available Vitals Date Recorded Body height Body mass index (BMI) Body weight Provider Name and Address Organization Details Last Updated DateTime 07/17/2024 167.64 cm 40.4 kg/m2 874539.09 g Dee Dee Moncada [place] - [facility] 07/17/2024 11:26:17 Date Recorded Body height Body mass index (BMI) Body weight Provider Name and Address Organization Details Last Updated DateTime 01/06/2024 167.64 cm 40.4 kg/m2 280369.09 g Reed Aguilar [place] - [facility] 01/06/2024 13:21:36 Date Recorded Body height Body mass index (BMI) Body weight Provider Name and Address Organization Details Last Updated DateTime 04/12/2024 167.64 cm 40.4 kg/m2 723386.09 g Dee Dee Moncada [place] - [facility] 04/12/2024 15:00:53 Social History None recorded. Functional Status None recorded. Mental Status None recorded. Family History Nothing Reported. Medical History No medical history recorded. Gynecological HistoryNo gynecological history recorded. Obstetrics History GPAL:G 0 P 0 0 0 0 Past Encounters Encounter ID Performer Location Encounter Start Date Encounter Closed Date Diagnosis/Indication Diagnosis SNOMED-CT Code Diagnosis ICD10 Code Diagnosis Note [id number] JUANITO CRAVEN PA-C [facility] [address] [phone] 01/06/2024 13:16:26 01/06/2024 13:46:28 Impacted cerumen of bilateral ears [id number] 681933 H61.23 [id number] JUANITO CRAVEN PA-C [facility] [address] [facility] [place] [address] 04/12/2024 14:44:04 04/12/2024 15:40:11 Impacted cerumen of bilateral ears 7874010024 027249 H61.23 [id number] NUPUR DENIS-[place] [facility] [address] [facility] [place] [address] 07/17/2024 11:20:12 07/17/2024 11:57:42 Impacted cerumen of bilateral ears 1028294474 429764 H61.23 Health Concerns Section Related Observation LastModified by Organization Detai ls LastModified Time None Recorded Concern Status LastModified by Organization Details LastModified Time None Recorded Advance Directives Directive None Recorded Payers Insurance Date Sequence Insurance Name Policy Number Policy Dueñas Covered Member ID Dueñas Member ID Guarantor Name 10/09/2024 1 [facility] NET PLAN (MEDICAID HMO) [facility] [id number] Adiel James Notes Date Note Type Note Provider Name and Address Organization Details Recorded Time 01/06/2024 text/html 48-year-old lory hong presents for routine ear cleaning. No concerns today. History of eczema and uses DermOtic, Lotrisone cream, clotrimazole drops as needed. HELLEN PENA MD [address] [place] [address], [phone], [facility] 01/07/2024 08:59:54 04/12/2024 text/html 48-year-old lory hong presents for routine ear cleaning. No concerns today. History of eczema and uses DermOtic, Lotrisone cream, clotrimazole drops as needed. HELLEN PENA MD [address] [place] [address], [phone], [facility] 04/13/2024 10:29:22 07/17/2024 text/html 49-year-old lory hong presents for routine ear cleaning. Reports itching and decreased hearing bilaterally. History of eczema and has used DermOtic, Lotrisone cream, clotrimazole drops as needed. CHIKIS ORTEGA MD [address] [place] [address], [place], [phone], [facility] - [facility] 07/17/2024 12:47:47 OBGyn Episode No OBEpisode recorded.
== END 2024-10-11 10:59 | disposition home or self-care (01) ==
LOC: HO.HGI 10:21
PROVIDERS: PCP Internal Medicine; Visit Provider Internal Medicine Gastroenterology
DX: K64.9 Unspecified hemorrhoids (principal); A04.8 Other specified bacterial intestinal infections; K21.9 Gastro-esophageal reflux disease without esophagitis; K59.04 Chronic idiopathic constipation; R14.0 Abdominal distension (gaseous); K63.8219 Small intestinal bacterial overgrowth, unspecified
CPT/HCPCS: 99213